=== PATIENT | female | born 1935 | race Caucasian/White ===

== ENCOUNTER 2017-06-20 08:10 | Emergency (ER) | payer MEDICARE, BC ==
[2017-06-20 09:28] VITALS: BP 135/74
--- NOTE | 2017-06-20 09:48 | EDM.PDOC ---
ED HPI GENERAL MEDICAL PROBLEM - General Chief Complaint: Lower Extremity Injury/Pain Stated Complaint: Hip pain Time Seen by Provider: 06/20/17 09:30 Source of Information: Reports: Patient, RN History Limitations: Reports: No Limitations - History of Present Illness INITIAL COMMENTS - FREE TEXT/NARRATIVE: 81 yr female presents with right hip pain. States hx of hip dislocation and thinks it happened again. States no injury, she was bending over to help her and felt this hip give out. 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) Right Hip Pain Score (Numeric/FACES): 8 - Related Data Allergies Allergy/AdvReac Type Severity Reaction Status Date / Time sulfamethoxazole Allergy Unknown Rash Verified 06/20/17 09:33 [From Bactrim] trimethoprim [From Bactrim] Allergy Unknown Rash Verified 06/20/17 09:33 ciprofloxacin Allergy Rash Verified 06/20/17 09:33 cortisone Allergy Itching Verified 06/20/17 09:33 lidocaine Allergy Other Verified 06/20/17 09:33 lisinopril Allergy Cough Verified 06/20/17 09:33 metronidazole [From Flagyl] Allergy Rash Verified 06/20/17 09:33 Metronidazole HCl Allergy Rash Verified 06/20/17 09:33 [From Flagyl] procaine HCl [From Novocain] Allergy Itching Verified 06/20/17 09:33 metals Allergy Itching Uncoded 06/20/17 09:33 Home Meds: Home Meds Losartan [Cozaar] 25 mg PO DAILY 07/02/13 [History] Omeprazole 20 mg PO ASDIRECTED 07/05/13 [History] Psyllium with Sucrose [Metamucil] 1 each PO DAILY 02/01/15 [History] Aspirin [Corey Chewable] 81 mg PO DAILY 06/07/16 [History] Cholecalciferol (Vitamin D3) [Vitamin D3] 2,000 unit PO DAILY 06/07/16 [History] Docusate Sodium [Colace] 100 mg PO QPM 06/07/16 [History] FLUoxetine HCl [Fluoxetine HCl] 10 mg PO DAILY 06/07/16 [History] Carvedilol [Carvedilol] 6.25 mg PO BIDMEALS 06/20/17 [History] Cyanocobalamin (Vitamin B-12) [Vitamin B-12] 1,000 mcg PO DAILY 06/20/17 [ History] Furosemide [Furosemide] 20 mg PO DAILY@1500 06/20/17 [History] Furosemide [Furosemide] 40 mg PO DAILY 06/20/17 [History] Magnesium Hydroxide [Milk of Magnesia] 15 - 30 mg PO DAILY PRN 06/20/17 [History ] Magnesium Oxide [Magnesium] 400 mg PO DAILY 06/20/17 [History] Potassium Chloride [Klor-Con 10] 20 meq PO DAILY 06/20/17 [History] Zinc 50 mg PO DAILY 06/20/17 [History] Past Medical History HEENT History: Reports: Cataract, Impaired Vision Cardiovascular History: Reports: Angina, Heart Failure, Hypertension Respiratory History: Reports: SOB, Other (See Below) Other Respiratory History: SOB when she lies flat Gastrointestinal History: Reports: GERD, Other (See Below) Other Gastrointestinal History: Reflux Genitourinary History: Reports: Other (See Below) Other Genitourinary History: history UTI 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: , 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 (See Below) Other OB/BYN History: 1 girl 2 boys vag, lumpectomy Musculoskeletal History: Reports: Arthritis, Back Pain, Chronic Neurological History: Reports: Migraines Psychiatric History: Reports: Depression Dermatologic History: Reports: Psoriasis, Other (See Below) Other Dermatologic History: on finger - Infectious Disease History Infectious Disease History: Reports: Chicken Pox, Measles, Scarlet Fever, Shingles - Past Surgical History Cardiovascular Surgical History: Reports: Other (See Below) Musculoskeletal Surgical History: Reports: Hip Replacement, Knee Replacement, Shoulder Surgery Social & Family History - Tobacco Use Smoking Status *Q: Never Smoker Second Hand Smoke Exposure: Yes - Caffeine Use Caffeine Use: Reports: Coffee Caffeine Use Comment: 1-2 cups/day - Recreational Drug Use Recreational Drug Use: No - Living Situation & Occupation Living situation: Reports: Occupation: Retired Review of Systems - Review of Systems Review Of Systems: See Below Constitutional: Reports: No Symptoms Eyes: Reports: Glasses Respiratory: Reports: No Symptoms Cardiovascular: Reports: Other (Took water pill today, concerned of increase in urination) GI/Abdominal: Reports: No Symptoms Musculoskeletal: Reports: Leg Pain Skin: Reports: No Symptoms Neurological: Reports: No Symptoms Psychiatric: Reports: No Symptoms ED EXAM, GENERAL - Physical Exam Exam: See Below Exam Limited By: No Limitations General Appearance: Alert, No Apparent Distress Ears: Normal External Exam Nose: Normal Inspection Throat/Mouth: Normal Inspection Head: Atraumatic Neck: Supple Respiratory/Chest: No Respiratory Distress, Lungs Clear, Normal Breath Sounds Cardiovascular: Normal Peripheral Pulses, No Edema GI/Abdominal: Normal Bowel Sounds, Soft, Non-Tender Extremities: Normal Inspection, Normal Capillary Refill, Limited Range of Motion Neurological: Alert, Oriented Psychiatric: Normal Affect, Normal Mood Skin Exam: Warm, Dry, Normal Color Course - Vital Signs Last Recorded V/S: Last Vital Signs Temp 97.8 F 06/20/17 09:25 Pulse 70 06/20/17 09:25 Resp 18 06/20/17 09:25 BP 135/74 06/20/17 09:25 Pulse Ox 100 06/20/17 09:25 - Orders/Labs/Meds Orders: Active Orders 24 hr Category Date Time Status Schneider Catheter Insertion [Insert Urinary Catheter] [OM. Care 06/20/17 11:00 Ordered PC] Q24H Urinary Catheter Assessment [RC] ASDIRECTED Care 06/20/17 10:54 Active Meds: Medications Discontinued Medications Generic Name Dose Route Start Last Admin Trade Name Freq PRN Reason Stop Dose Admin Morphine Sulfate 2 mg 06/20/17 09:49 06/20/17 09:52 Morphine SUBCUT 2 mg Q2H PRN Administration Pain (severe 7-10) Morphine Sulfate 4 mg 06/20/17 11:43 06/20/17 11:46 Morphine SUBCUT 06/20/17 11:44 4 mg ONETIME ONE Administration Morphine Sulfate Confirm 06/20/17 11:45 06/20/17 11:58 Morphine Administered 06/20/17 11:46 Not Given Dose 10 mg .ROUTE .[facility] - Radiology Interpretation Free Text/Narrative:: right hip dislocation - Re-Assessments/Exams Free Text/Narrative Re-Assessment/Exam: 06/20/17 10:55 Reviewed x-ray and hip dislocation noted. Consult with [facility]. States to attempt to get hip back in place. Consult with Dr Orozco, Dr Orozco reviewed x-ray and reviewed situation with pt. Pt requests for transfer to [facility]. Talked to Dr Dangelo in ER and states to send her to [facility]. Departure - Departure Time of Disposition: 12:30 Disposition: DC/Tfer to Acute Hospital 02 Condition: Good Clinical Impression: Dislocation of right hip - Discharge Information Referrals: Tavares Orozco MD [Primary Care Provider] - Forms: ED Department Discharge - My Orders Last 24 Hours: My Active Orders 06/20/17 10:54 Urinary Catheter Assessment [RC] ASDIRECTED 06/20/17 11:00 Schneider Catheter Insertion [Insert Urinary Catheter] [OM.PC] Q24H - Assessment/Plan Last 24 Hours: My Active Orders 06/20/17 10:54 Urinary Catheter Assessment [RC] ASDIRECTED 06/20/17 11:00 Schneider Catheter Insertion [Insert Urinary Catheter] [OM.PC] Q24H
[2017-06-20] MEDS ORDERED: Morphine 2 MG/ML Syringe SUBCUT PRN (09:49)
--- NOTE | 2017-06-20 11:25 | CR ---
DATE OF SERVICE: 06/20/17 CLINICAL DATA: hip pain PELVIS AND RIGHT HIP: Comparison is made to a prior exam dated 12/13/16. The patient is status post bilateral total hip arthroplasty. There is dislocation of the right hip prosthesis with superior dislocation of the femoral component with respect to the acetabular component. No other acute abnormalities. [id number] [facility]
[2017-06-20] MEDS ORDERED: Morphine 10 MG/ML Syringe SUBCUT ONE (11:43)
[2017-06-20] MEDS ORDERED: Morphine 10 MG/ML Syringe ONE (11:45)
== END 2017-06-20 12:30 ==
LOC: LB.ED 08:10
DX: T84.020A Dislocation of internal right hip prosthesis, initial encounter (principal); Z87.39 Personal history of other diseases of the musculoskeletal system and connective tissue; I11.0 Hypertensive heart disease with heart failure; I50.9 Heart failure, unspecified; Z96.649 Presence of unspecified artificial hip joint; Z88.2 Allergy status to sulfonamides; Z88.1 Allergy status to other antibiotic agents; Z88.8 Allergy status to other drugs, medicaments and biological substances
CPT/HCPCS: 51702; 73502; 96372; 99285; A0425; A0429; J2270; 99284

== ENCOUNTER 2019-01-05 08:02 | Emergency (ER) | payer MEDICARE ==
[2019-01-05] MEDS ORDERED: Metoprolol Tartrate 5 MG/5 ML SDV IVPUSH ONE (08:23)
[2019-01-05] MEDS ORDERED: Metoprolol Tartrate 5 MG/5 ML SDV ONE (08:29)
[2019-01-05] MEDS ORDERED: Heparin Sodium 5,000 UNITS/0.5 ML Syringe IVPUSH STA (09:16)
[2019-01-05] MEDS ORDERED: Diltiazem 25 MG/5 ML SDV IVPUSH ONE (09:26)
[2019-01-05] MEDS ORDERED: Clopidogrel 75 MG Tab PO ONE (09:26)
[2019-01-05] MEDS ORDERED: Heparin Sodium/D5W 25,000 UNITS/500 ML BAG IV SCH (09:30)
[2019-01-05] MEDS ORDERED: Diltiazem 100 MG in Sodium Chloride 0.9% 100 ML IV SCH (09:30)
--- NOTE | 2019-01-05 10:05 | EDM.PDOC ---
ED HPI GENERAL MEDICAL PROBLEM - General Chief Complaint: General Stated Complaint: SOB Time Seen by Provider: 01/05/19 08:10 Source of Information: Reports: Patient History Limitations: Reports: No Limitations - History of Present Illness INITIAL COMMENTS - FREE TEXT/NARRATIVE: Pt is 83 year old female with PMH of hypertension and GERD present to emergency room with Palpitations and shortness of breath.According to patient she claims that she was fine last night when she went to bed, she woke up at 5 Am today with racing heart and shortness of breath at rest. Pt claims that she can feel the heart racing on and off and feels tired and short of breath. No chest pain or chest tightness. No nausea or vomiting. No fever or chills. The symptoms have not resolved and hence she came into emergency room. Pt does not have CAD, but apparently had Cardiac evaluation for Hip surgery 2 years ago in [facility] and was started on Lasix and Coreg, per patient. Onset: Today Onset Date: 01/05/19 Onset Time: 05:00 Location: Reports: Chest Quality: Reports: Other (palpitations) Severity: Moderate Improves with: Reports: None Worsens with: Reports: None Associated Symptoms: Reports: Shortness of Breath. Denies: Confusion, Chest Pain, Cough, Diaphoresis, Fever/Chills, Headaches, Loss of Appetite, Malaise, Nausea/Vomiting, Rash, Seizure, Syncope, Weakness - Related Data Allergies Allergy/AdvReac Type Severity Reaction Status Date / Time sulfamethoxazole Allergy Unknown Rash Verified 08/25/17 10:27 [From Bactrim] trimethoprim [From Bactrim] Allergy Unknown Rash Verified 08/25/17 10:27 acetaminophen [From [place]] Allergy Rash Verified 01/05/19 09:07 ciprofloxacin Allergy Rash Verified 08/25/17 10:27 cortisone Allergy Itching Verified 08/25/17 10:27 hydrocodone [From [place]] Allergy Rash Verified 01/05/19 09:07 lidocaine Allergy Other Verified 08/25/17 10:27 lisinopril Allergy Cough Verified 08/25/17 10:27 metronidazole [From Flagyl] Allergy Rash Verified 08/25/17 10:27 Metronidazole HCl Allergy Rash Verified 08/25/17 10:27 [From Flagyl] procaine HCl [From Novocain] Allergy Itching Verified 08/25/17 10:27 metals Allergy Itching Uncoded 08/25/17 10:27 Home Meds: Home Meds Losartan [Cozaar] 25 mg PO DAILY 07/02/13 [History] Omeprazole 20 mg PO ASDIRECTED 07/05/13 [History] Psyllium with Sucrose [Metamucil] 1 each PO DAILY 02/01/15 [History] Aspirin [Corey Chewable] 81 mg PO DAILY 06/07/16 [History] Cholecalciferol (Vitamin D3) [Vitamin D3] 2,000 unit PO DAILY 06/07/16 [History] Docusate Sodium [Colace] 100 mg PO QPM 06/07/16 [History] Carvedilol 6.25 mg PO BIDMEALS 06/20/17 [History] Cyanocobalamin (Vitamin B-12) [Vitamin B-12] 1,000 mcg PO DAILY 06/20/17 [ History] Furosemide 20 mg PO DAILY@1500 06/20/17 [History] Furosemide 40 mg PO DAILY 06/20/17 [History] Magnesium Hydroxide [Milk of Magnesia] 15 - 30 mg PO DAILY PRN 06/20/17 [History ] Magnesium Oxide [Magnesium] 400 mg PO DAILY 06/20/17 [History] Zinc 50 mg PO DAILY 06/20/17 [History] Past Medical History HEENT History: Reports: Cataract, Impaired Vision Cardiovascular History: Reports: Angina, Heart Failure, Hypertension Respiratory History: Reports: SOB, Other (See Below) Other Respiratory History: SOB when she lies flat Gastrointestinal History: Reports: GERD, Other (See Below) Other Gastrointestinal History: Reflux Genitourinary History: Reports: Other (See Below) Other Genitourinary History: history UTI 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: , 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, 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 Musculoskeletal History: Reports: Arthritis, Back Pain, Chronic Neurological History: Reports: Migraines Psychiatric History: Reports: Depression Endocrine/Metabolic History: Reports: Vitamin D Deficiency Hematologic History: Reports: Blood Transfusion(s) Dermatologic History: Reports: Psoriasis, Other (See Below) Other Dermatologic History: on finger - Infectious Disease History Infectious Disease History: Reports: Chicken Pox, Measles, Scarlet Fever, Shingles - Past Surgical History Cardiovascular Surgical History: Reports: Other (See Below) Musculoskeletal Surgical History: Reports: Hip Replacement, Knee Replacement, Shoulder Surgery Social & Family History - Caffeine Use Caffeine Use: Reports: Coffee Caffeine Use Comment: 1-2 cups/day - Living Situation & Occupation Living situation: Reports: Occupation: Retired ED ROS GENERAL - Review of Systems Review Of Systems: See Below Constitutional: Denies: Fever, Chills, Malaise, Weakness HEENT: Denies: Rhinitis, Throat Pain, Throat Swelling Respiratory: Reports: Shortness of Breath. Denies: Pleuritic Chest Pain, Cough , Sputum Cardiovascular: Reports: Dyspnea on Exertion, Palpitations. Denies: Chest Pain , Lightheadedness GI/Abdominal: Denies: Abdominal Pain, Nausea, Vomiting : Denies: Dysuria, Frequency Musculoskeletal: Denies: Joint Pain, Joint Swelling Skin: Denies: Bruising, Pruritis, Rash Neurological: Denies: Confusion, Dizziness, Headache, Numbness, Tingling, Weakness ED EXAM, GENERAL - Physical Exam Exam: See Below Exam Limited By: No Limitations General Appearance: Alert, WD/WN, No Apparent Distress Eye Exam: Bilateral Eye: EOMI, PERRL Ears: Normal External Exam Ear Exam: Bilateral Ear: Auricle Normal, Canal Normal, TM normal Nose: Normal Inspection, Normal Mucosa, No Blood Throat/Mouth: Normal Inspection, Normal Lips, Normal Teeth, Normal Gums, Normal Oropharynx, Normal Voice, No Airway Compromise Head: Atraumatic, Normocephalic Neck: Normal Inspection, Supple, Non-Tender, Full Range of Motion Respiratory/Chest: Lungs Clear, Normal Breath Sounds, No Accessory Muscle Use, Chest Non-Tender Cardiovascular: No Edema, No Murmur, Irregularly Irregular, Other (heart rate is in 140s) Peripheral Pulses: 2+: Carotid (L), Carotid (R), Radial (L), Radial (R) GI/Abdominal: Normal Bowel Sounds, Soft, Non-Tender, No Organomegaly, No Distention, No Abnormal Bruit, No Mass Extremities: Normal Inspection, Normal Range of Motion, Non-Tender, Normal Capillary Refill, Pedal Edema (1+ pitting) EKG INTERPRETATION EKG Date: 01/05/19 Rhythm: A-Fib Rate (Beats/Min): 140 [place]: Normal P-Wave: Present QRS: Normal ST-T: Depressed (in lead 2,3 and AVF) QT: Normal Course - Vital Signs Text/Narrative:: 83 year patient present with sudden onset of shortness of breath with palpitations since 5 AM today. EKG shows Afib with inferior lead showing ischemic changes. Vital stable. Pt did receive Lopressor 5mg IV times one, labs were ordered. Patient's heart rate did transiently come down into 90s and relapsed into RVR at 130-140. Pt has not had any chest pain of discomfort in the emergency room. Her CBC is normal. CMP appear normal other then creat of 1.29 with BUN of 27. Troponin is 0.47 and D-dimer of 484. Pt has had Non-stemi with Afib in RVR. I did contact Dr. Epperson, procedural nurse application assistant at [facility]. Recommendation was to start on Non-stemi treatment and also rate control with cardizem drip and transfer patient to [facility]. I have discussed the plan with patient, she agrees with it. Pt did receive plavix 300mg PO, heparin bolus of 400mg followed by 1000units per hr. Also she received Diltiazem 15mg IV bolus followed by Diltiazem drip at 5mg /hr. Pt will be transferred by ALS ambulance to [facility]. Pt is hemodynamically stable at the time of transfer. Last Recorded V/S: Last Vital Signs Temp Pulse 139 H 01/05/19 08:25 Resp BP 119/61 01/05/19 08:25 Pulse Ox - Orders/Labs/Meds Orders: Active Orders 24 hr Category Date Time Status EKG Documentation Completion [RC] ASDIRECTED Care 01/05/19 08:18 Active Chest 1V Frontal [CR] Stat Exams 01/05/19 08:22 Taken Diltiazem [Cardizem] 100 mg Med 01/05/19 09:30 Active Sodium Chloride 0.9% [Normal Saline] 100 ml IV TITRATE Heparin Sodium/D5W [Heparin 25,000 Units in D5W 500 ML] Med 01/05/19 09:30 Ordered 25,000 units in 500 ml IV TITRATE Medication Orders Heparin Sodium/Dextrose (Heparin 25,000 Units In D5w 500 Ml) 25,000 units in 500 mls @ 0 mls/hr IV TITRATE FABIANO; Protocol Diltiazem HCl 100 mg/ Sodium (Chloride) 100 mls @ 5 mls/hr IV TITRATE FABIANO; Protocol Last Admin: 01/05/19 09:26 Dose: 5 mg/hr, 5 mls/hr Labs: Laboratory Tests 01/05/19 01/05/19 01/05/19 Range/Units 08:15 08:15 08:15 WBC 5.3 (4.0-11.0) K/uL RBC 4.68 (3.80-5.80) M/uL Hgb 14.8 (11.5-16.5) g/dL Hct 45.1 (37.0-47.0) % MCV 96 (76-96) fL MCH 31.6 (27.0-32.0) pg MCHC 32.8 (31.0-35.0) g/dL RDW 12.4 (11.0-16.0) % Plt Count 147 L (150-500) K/uL MPV 11.0 H (6.0-10.0) fL Neut % (Auto) 67.1 (45.0-70.0) % Lymph % (Auto) 22.5 (20.0-40.0) % Treasure % (Auto) 7.9 (3.0-10.0) % Eos % (Auto) 2.3 (1.0-5.0) % Baso % (Auto) 0.2 (0.0-0.5) % Neut # (Auto) 3.56 (2.00-7.50) K/uL Lymph # (Auto) 1.19 L (1.50-4.00) K/uL Treasure # (Auto) 0.42 (0.20-0.80) K/uL Eos # (Auto) 0.12 (0.04-0.40) K/uL Baso # (Auto) 0.01 L (0.02-0.10) K/uL PT 10.1 (9.0-11.5) sec INR 1.0 (1.0-3.5) APTT 24.8 (24.4-33.2) SECONDS D-Dimer, Quantitative (0-400) ng/mL Sodium 142 (136-145) mmol/L Potassium 4.3 (3.5-5.1) mmol/L Chloride 105 (98-107) mmol/L Carbon Dioxide 28.6 (21.0-32.0) mmol/L Anion Gap 12.7 (5.0-15.0) mmol/L BUN 27 H (8-26) mg/dL Creatinine 1.29 H (0.55-1.02) mg/dL Est Cr Clr Drug Dosing TNP Estimated GFR (MDRD) 40 L (>60) MLS/MIN BUN/Creatinine Ratio 20.9 (6-25) Glucose 108 H (74-100) mg/dL Calcium 8.6 (8.5-10.1) mg/dL Total Bilirubin 1.3 H (0.0-1.0) mg/dL AST 25 (15-37) U/L ALT 23 (12-78) U/L Alkaline Phosphatase 77 (46-116) U/L Troponin I (0.000-0.060) ng/mL Total Protein 6.9 (6.4-8.2) g/dL Albumin 3.5 (3.4-5.0) g/dL Globulin 3.4 (2.2-4.2) g/dL Albumin/Globulin Ratio 1.0 (0.8-2.0) 01/05/19 01/05/19 Range/Units 08:15 08:15 WBC (4.0-11.0) K/uL RBC (3.80-5.80) M/uL Hgb (11.5-16.5) g/dL Hct (37.0-47.0) % MCV (76-96) fL MCH (27.0-32.0) pg MCHC (31.0-35.0) g/dL RDW (11.0-16.0) % Plt Count (150-500) K/uL MPV (6.0-10.0) fL Neut % (Auto) (45.0-70.0) % Lymph % (Auto) (20.0-40.0) % Treasure % (Auto) (3.0-10.0) % Eos % (Auto) (1.0-5.0) % Baso % (Auto) (0.0-0.5) % Neut # (Auto) (2.00-7.50) K/uL Lymph # (Auto) (1.50-4.00) K/uL Treasure # (Auto) (0.20-0.80) K/uL Eos # (Auto) (0.04-0.40) K/uL Baso # (Auto) (0.02-0.10) K/uL PT (9.0-11.5) sec INR (1.0-3.5) APTT (24.4-33.2) SECONDS D-Dimer, Quantitative 454 H (0-400) ng/mL Sodium (136-145) mmol/L Potassium (3.5-5.1) mmol/L Chloride (98-107) mmol/L Carbon Dioxide (21.0-32.0) mmol/L Anion Gap (5.0-15.0) mmol/L BUN (8-26) mg/dL Creatinine (0.55-1.02) mg/dL Est Cr Clr Drug Dosing Estimated GFR (MDRD) (>60) MLS/MIN BUN/Creatinine Ratio (6-25) Glucose (74-100) mg/dL Calcium (8.5-10.1) mg/dL Total Bilirubin (0.0-1.0) mg/dL AST (15-37) U/L ALT (12-78) U/L Alkaline Phosphatase (46-116) U/L Troponin I 0.471 H* (0.000-0.060) ng/mL Total Protein (6.4-8.2) g/dL Albumin (3.4-5.0) g/dL Globulin (2.2-4.2) g/dL Albumin/Globulin Ratio (0.8-2.0) Meds: Medications Generic Name Dose Route Start Last Admin Trade Name Freq PRN Reason Stop Dose Admin Heparin Sodium/Dextrose 25,000 units in 500 mls @ 0 mls/hr 01/05/19 09:30 Heparin 25,000 Units In D5w 500 Ml IV TITRATE FABIANO Protocol 12 UNITS/KG/HR Diltiazem HCl 100 mg/ Sodium 100 mls @ 5 mls/hr 01/05/19 09:30 01/05/19 09:26 Chloride IV 5 mg/hr TITRATE FABIANO 5 mls/hr Administration Protocol 5 MG/HR Discontinued Medications Generic Name Dose Route Start Last Admin Trade Name Freq PRN Reason Stop Dose Admin Clopidogrel Bisulfate 300 mg 01/05/19 09:26 01/05/19 09:15 Plavix PO 01/05/19 09:27 300 mg ONETIME ONE Administration Diltiazem HCl 15 mg 01/05/19 09:26 01/05/19 09:22 Diltiazem IVPUSH 01/05/19 09:27 15 mg ONETIME ONE Administration Heparin Sodium (Porcine) 4,000 units 01/05/19 09:16 01/05/19 09:35 Heparin Sodium IVPUSH 01/05/19 09:17 4,000 units .BOLUS STA Administration Metoprolol Tartrate Confirm 01/05/19 08:29 01/05/19 08:42 Lopressor Administered 01/05/19 08:30 Not Given Dose 5 mg .ROUTE .[facility]-MED ONE Metoprolol Tartrate 5 mg 01/05/19 08:23 01/05/19 08:25 Lopressor IVPUSH 01/05/19 08:24 5 mg ONETIME ONE Administration Departure - Departure Time of Disposition: 11:30 Disposition: DC/Tfer to Acute Hospital 02 Condition: Fair Clinical Impression: Non-STEMI (non-ST elevated myocardial infarction), Atrial fibrillation with RVR - Discharge Information *PRESCRIPTION DRUG MONITORING PROGRAM REVIEWED*: Not Applicable *COPY OF PRESCRIPTION DRUG MONITORING REPORT IN PATIENT KARELY: Not Applicable Referrals: PCP,None [Primary Care Provider] - - Problem List & Annotations (1) Atrial fibrillation with RVR SNOMED Code(s): 354337669999280 Code(s): I48.91 - UNSPECIFIED ATRIAL FIBRILLATION Status: Acute Current Visit: Yes (2) Non-STEMI (non-ST elevated myocardial infarction) SNOMED Code(s): 34986935 Code(s): I21.4 - NON-ST ELEVATION (NSTEMI) MYOCARDIAL INFARCTION Status: Acute Current Visit: Yes - Problem List Review Problem List Initiated/Reviewed/Updated: Yes - My Orders Last 24 Hours: My Active Orders 01/05/19 08:18 EKG Documentation Completion [RC] ASDIRECTED 01/05/19 08:22 Chest 1V Frontal [CR] Stat 01/05/19 09:30 Diltiazem [Cardizem] 100 mg Sodium Chloride 0.9% [Normal Saline] 100 ml IV TITRATE Heparin Sodium/D5W [Heparin 25,000 Units in D5W 500 ML] 25,000 units in 500 ml IV TITRATE - Assessment/Plan Last 24 Hours: My Active Orders 01/05/19 08:18 EKG Documentation Completion [RC] ASDIRECTED 01/05/19 08:22 Chest 1V Frontal [CR] Stat 01/05/19 09:30 Diltiazem [Cardizem] 100 mg Sodium Chloride 0.9% [Normal Saline] 100 ml IV TITRATE Heparin Sodium/D5W [Heparin 25,000 Units in D5W 500 ML] 25,000 units in 500 ml IV TITRATE Assessment:: Non-STEMI Afib with RVR Plan: I have discussed the plan with patient, she agrees with it. Pt did receive plavix 300mg PO, heparin bolus of 400mg followed by 1000units per hr. Also she received Diltiazem 15mg IV bolus followed by Diltiazem drip at 5mg /hr. Pt will be transferred by ALS ambulance to [facility]. Pt is hemodynamically stable at the time of transfer.
[2019-01-05 10:27] VITALS: BP 105/54
[2019-01-05] MEDS ORDERED: Clopidogrel 75 MG Tab ONE (12:13)
--- NOTE | 2019-01-05 13:51 | CR ---
DATE OF SERVICE: 01/05/19 CLINICAL DATA: palpitation with shortness of breath AP PORTABLE CHEST: Comparison is made to a prior PA and lateral chest dated 12/17/18. The heart is enlarged. The aorta is ectatic. The lungs are clear. No pneumothorax. No pleural effusions. No other significant findings. [id number] MTDD
== END 2019-01-05 12:04 ==
LOC: LB.ED 08:02
DX: I21.4 Non-ST elevation (NSTEMI) myocardial infarction (principal); I48.91 Unspecified atrial fibrillation; F32.9 Major depressive disorder, single episode, unspecified; K21.9 Gastro-esophageal reflux disease without esophagitis; Z79.899 Other long term (current) drug therapy; Z88.8 Allergy status to other drugs, medicaments and biological substances; Z88.2 Allergy status to sulfonamides
CPT/HCPCS: 36415; 51702; 71045; 80053; 84484; 85025; 85379; 85610; 85730; 93005; 96365; 96366; 96368; 96375; 96376; 99285-25; A0425; A0429; A9270-GY; J1644; J1644-GY; J3490; J7030

== ENCOUNTER 2019-05-24 09:46 | Emergency (ER) | payer MEDICARE ==
[2019-05-24] MEDS ORDERED: Sodium Chloride 0.9% 10 ML Syringe FLUSH PRN (10:07)
--- NOTE | 2019-05-24 10:16 | EDM.PDOC ---
ED HPI GENERAL MEDICAL PROBLEM - General Chief Complaint: Chest Pain Stated Complaint: CHEST PAIN Time Seen by Provider: 05/24/19 10:00 Source of Information: Reports: Patient, Family, RN History Limitations: Reports: No Limitations - History of Present Illness INITIAL COMMENTS - FREE TEXT/NARRATIVE: 83 yr female presents with chest pain/warm sensation to chest this am. She had some chest pain with radiates to neck and across shoulders about 4 days ago. States some burning across front of chest. States no pain to chest at this time. She does have a hx of Htn, no diabetes, no HLD. She does wish to have full treatment. Bilateral Middle Chest Pain Score (Numeric/FACES): 0 - Related Data Allergies Allergy/AdvReac Type Severity Reaction Status Date / Time sulfamethoxazole Allergy Unknown Rash Verified 05/24/19 11:23 [From Bactrim] trimethoprim [From Bactrim] Allergy Unknown Rash Verified 05/24/19 11:23 amoxicillin Allergy Facial Verified 05/24/19 11:30 Swelling ciprofloxacin Allergy Rash Verified 05/24/19 11:23 cortisone Allergy Itching Verified 05/24/19 11:23 hydrocodone [From [place]] Allergy Rash Verified 05/24/19 11:23 lisinopril Allergy Cough Verified 05/24/19 11:23 metronidazole [From Flagyl] Allergy Rash Verified 05/24/19 11:23 Metronidazole HCl Allergy Rash Verified 05/24/19 11:23 [From Flagyl] procaine HCl [From Novocain] Allergy Itching Verified 05/24/19 11:23 metals Allergy Itching Uncoded 05/24/19 11:23 Home Meds: Home Meds Losartan [Cozaar] 25 mg PO DAILY 07/02/13 [History] Omeprazole 20 mg PO ASDIRECTED 07/05/13 [History] Psyllium with Sucrose [Metamucil] 1 each PO DAILY PRN 02/01/15 [History] Aspirin [Corey Chewable] 81 mg PO DAILY 06/07/16 [History] Cholecalciferol (Vitamin D3) [Vitamin D3] 2,000 unit PO DAILY 06/07/16 [History] Docusate Sodium [Colace] 100 mg PO QPM PRN 06/07/16 [History] Carvedilol 6.25 mg PO BIDMEALS 06/20/17 [History] Furosemide 20 mg PO DAILY@1500 06/20/17 [History] Furosemide 40 mg PO DAILY 06/20/17 [History] Magnesium Hydroxide [Milk of Magnesia] 15 - 30 mg PO DAILY PRN 06/20/17 [History ] Magnesium Oxide [Magnesium] 400 mg PO DAILY 06/20/17 [History] Apixaban [Eliquis] 10 mg PO DAILY 05/24/19 [History] Past Medical History HEENT History: Reports: Cataract, Impaired Vision Cardiovascular History: Reports: Angina, Heart Failure, Hypertension Respiratory History: Reports: SOB, Other (See Below) Other Respiratory History: SOB when she lies flat Gastrointestinal History: Reports: GERD, Other (See Below) Other Gastrointestinal History: Reflux Genitourinary History: Reports: Other (See Below) Other Genitourinary History: history UTI 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: , 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 (See Below) 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 RESEARCH TECHNICIAN History: 1 girl 2 boys vag, lumpectomy Musculoskeletal History: Reports: Arthritis, Back Pain, Chronic Neurological History: Reports: Migraines Psychiatric History: Reports: Depression Endocrine/Metabolic History: Reports: Vitamin D Deficiency Hematologic History: Reports: Blood Transfusion(s) Dermatologic History: Reports: Psoriasis, Other (See Below) Other Dermatologic History: on finger - Infectious Disease History Infectious Disease History: Reports: Chicken Pox, Measles, Scarlet Fever, Shingles - Past Surgical History Cardiovascular Surgical History: Reports: Other (See Below) Musculoskeletal Surgical History: Reports: Hip Replacement, Knee Replacement, Shoulder Surgery Social & Family History - Caffeine Use Caffeine Use: Reports: Coffee Caffeine Use Comment: 1-2 cups/day - Living Situation & Occupation Living situation: Reports: Occupation: Retired ED ROS GENERAL - Review of Systems Review Of Systems: See Below Constitutional: Reports: No Symptoms HEENT: Reports: Glasses Respiratory: Reports: Shortness of Breath. Denies: Cough Cardiovascular: Reports: Chest Pain, Edema GI/Abdominal: Reports: No Symptoms Musculoskeletal: Reports: Other (chronic left lower extremity pain) Skin: Reports: No Symptoms Neurological: Reports: No Symptoms Psychiatric: Reports: No Symptoms Hematologic/Lymphatic: Reports: No Symptoms Immunologic: Reports: No Symptoms ED EXAM, GENERAL - Physical Exam Exam: See Below Exam Limited By: No Limitations General Appearance: Alert, No Apparent Distress Eye Exam: Bilateral Eye: PERRL Ears: Normal Canal, Hearing Grossly Normal Nose: Normal Inspection, Normal Mucosa Throat/Mouth: Normal Inspection, Normal Lips, Normal Oropharynx, Normal Voice, No Airway Compromise Head: Atraumatic, Normocephalic Neck: Normal Inspection, Supple, Non-Tender Respiratory/Chest: No Respiratory Distress, Lungs Clear, Normal Breath Sounds Cardiovascular: Normal Peripheral Pulses, Regular Rate, Rhythm, No Edema Peripheral Pulses: 2+: Radial (L), Radial (R) GI/Abdominal: Normal Bowel Sounds, Soft, Non-Tender Back Exam: No: Vertebral Tenderness Extremities: Pedal Edema. No: Arm Pain, Increased Warmth Neurological: Alert, Oriented, Normal Cognition Psychiatric: Normal Affect, Normal Mood Skin Exam: Warm, Dry, Normal Color Lymphatic: No Adenopathy Course - Vital Signs Last Recorded V/S: Last Vital Signs Temp 97.8 F 05/24/19 09:54 Pulse 57 L 05/24/19 13:08 Resp 18 05/24/19 09:54 BP 126/63 05/24/19 13:08 Pulse Ox 97 05/24/19 13:08 - Orders/Labs/Meds Orders: Active Orders 24 hr Category Date Time Status Cardiac Monitoring [RC] .As Directed Care 05/24/19 10:08 Active EKG Documentation Completion [RC] ASDIRECTED Care 05/24/19 10:09 Active Heparin Sodium/D5W [Heparin 25,000 Units in D5W 500 ML] Med 05/24/19 11:30 Active 25,000 units in 500 ml IV TITRATE Saline Lock Insert [OM.PC] Stat Oth 05/24/19 10:07 Ordered Medication Orders Heparin Sodium/Dextrose (Heparin 25,000 Units In D5w 500 Ml) 25,000 units in 500 mls @ 42.48 mls/hr IV TITRATE [facility], [facility]; Protocol Last Admin: 05/24/19 11:48 Dose: 12 units/kg/hr, 42.48 mls/hr Sodium Chloride (Saline Flush) 10 ml FLUSH ASDIRECTED PRN PRN Reason: Keep Vein Open Labs: Laboratory Tests 05/24/19 05/24/19 05/24/19 Range/Units 10:20 10:20 10:27 WBC 5.3 (4.0-11.0) K/uL RBC 3.81 (3.80-5.80) M/uL Hgb 12.6 (11.5-16.5) g/dL Hct 38.1 (37.0-47.0) % MCV 100 H (76-96) fL MCH 33.1 H (27.0-32.0) pg MCHC 33.1 (31.0-35.0) g/dL RDW 12.8 (11.0-16.0) % Plt Count 130 L (150-500) K/uL MPV 11.0 H (6.0-10.0) fL Neut % (Auto) 65.3 (45.0-70.0) % Lymph % (Auto) 22.4 (20.0-40.0) % [place] % (Auto) 10.2 H (3.0-10.0) % Eos % (Auto) 1.9 (1.0-5.0) % Baso % (Auto) 0.2 (0.0-0.5) % Neut # (Auto) 3.47 (2.00-7.50) K/uL Lymph # (Auto) 1.19 L (1.50-4.00) K/uL [place] # (Auto) 0.54 (0.20-0.80) K/uL Eos # (Auto) 0.10 (0.04-0.40) K/uL Baso # (Auto) 0.01 L (0.02-0.10) K/uL APTT 26.2 (24.4-33.2) SECONDS Sodium (136-145) mmol/L Potassium (3.5-5.1) mmol/L Chloride (98-107) mmol/L Carbon Dioxide (21.0-32.0) mmol/L Anion Gap (5.0-15.0) mmol/L BUN (8-26) mg/dL Creatinine (0.55-1.02) mg/dL Est Cr Clr Drug Dosing mL/min Estimated GFR (MDRD) (>60) MLS/MIN BUN/Creatinine Ratio (6-25) Glucose (74-100) mg/dL Calcium (8.5-10.1) mg/dL Total Bilirubin (0.0-1.0) mg/dL AST (15-37) U/L ALT (12-78) U/L Alkaline Phosphatase (46-116) U/L Troponin I (0.000-0.060) ng/mL B-Natriuretic Peptide 2996 H (0-450) pg/mL Total Protein (6.4-8.2) g/dL Albumin (3.4-5.0) g/dL Globulin (2.2-4.2) g/dL Albumin/Globulin Ratio (0.8-2.0) Urine Color Urine Appearance (CLEAR) Urine pH (5.0-8.0) Ur Specific [place] (1.003-1.030) Urine Protein (NEGATIVE) mg/dL Urine Glucose (UA) (NEGATIVE) mg/dL Urine Ketones (NEGATIVE) mg/dL Urine Occult Blood (NEGATIVE) Urine Nitrite (NEGATIVE) Urine Bilirubin (NEGATIVE) Urine Urobilinogen (0.2-1.0) E.U./dL Ur Leukocyte Esterase (NEGATIVE) Urine RBC /HPF Urine WBC /HPF Ur Squamous Epith Cells /HPF Urine Bacteria /HPF Hyaline Casts /HPF 05/24/19 05/24/19 Range/Units 10:27 11:01 WBC (4.0-11.0) K/uL RBC (3.80-5.80) M/uL Hgb (11.5-16.5) g/dL Hct (37.0-47.0) % MCV (76-96) fL MCH (27.0-32.0) pg MCHC (31.0-35.0) g/dL RDW (11.0-16.0) % Plt Count (150-500) K/uL MPV (6.0-10.0) fL Neut % (Auto) (45.0-70.0) % Lymph % (Auto) (20.0-40.0) % [place] % (Auto) (3.0-10.0) % Eos % (Auto) (1.0-5.0) % Baso % (Auto) (0.0-0.5) % Neut # (Auto) (2.00-7.50) K/uL Lymph # (Auto) (1.50-4.00) K/uL [place] # (Auto) (0.20-0.80) K/uL Eos # (Auto) (0.04-0.40) K/uL Baso # (Auto) (0.02-0.10) K/uL APTT (24.4-33.2) SECONDS Sodium 145 (136-145) mmol/L Potassium 4.7 (3.5-5.1) mmol/L Chloride 107 (98-107) mmol/L Carbon Dioxide 33.3 H (21.0-32.0) mmol/L Anion Gap 9.4 (5.0-15.0) mmol/L BUN 28 H (8-26) mg/dL Creatinine 1.53 H (0.55-1.02) mg/dL Est Cr Clr Drug Dosing 29.09 mL/min Estimated GFR (MDRD) 33 L (>60) MLS/MIN BUN/Creatinine Ratio 18.3 (6-25) Glucose 87 (74-100) mg/dL Calcium 9.0 (8.5-10.1) mg/dL Total Bilirubin 1.5 H (0.0-1.0) mg/dL AST 23 (15-37) U/L ALT 27 (12-78) U/L Alkaline Phosphatase 72 (46-116) U/L Troponin I 0.751 H* D (0.000-0.060) ng/mL B-Natriuretic Peptide (0-450) pg/mL Total Protein 6.5 (6.4-8.2) g/dL Albumin 3.5 (3.4-5.0) g/dL Globulin 3.0 (2.2-4.2) g/dL Albumin/Globulin Ratio 1.2 (0.8-2.0) Urine Color Yellow Urine Appearance Clear (CLEAR) Urine pH 7.0 (5.0-8.0) Ur Specific [place] 1.020 (1.003-1.030) Urine Protein Negative (NEGATIVE) mg/dL Urine Glucose (UA) Negative (NEGATIVE) mg/dL Urine Ketones Negative (NEGATIVE) mg/dL Urine Occult Blood Small H (NEGATIVE) Urine Nitrite Negative (NEGATIVE) Urine Bilirubin Negative (NEGATIVE) Urine Urobilinogen 0.2 (0.2-1.0) E.U./dL Ur Leukocyte Esterase Trace H (NEGATIVE) Urine RBC 20-30 H /HPF Urine WBC 0-5 H /HPF Ur Squamous Epith Cells Few /HPF Urine Bacteria Few /HPF Hyaline Casts Few /HPF Meds: Medications Generic Name Dose Route Start Last Admin Trade Name Freq PRN Reason Stop Dose Admin Heparin Sodium/Dextrose 25,000 units in 500 mls @ 42.48 mls/hr 05/24/19 11:30 05/24/19 11:48 Heparin 25,000 Units In D5w 500 Ml IV 12 units/kg/hr TITRATE FABIANO 42.48 mls/hr Administration Protocol 12 UNITS/KG/HR Sodium Chloride 10 ml 05/24/19 10:07 Saline Flush FLUSH ASDIRECTED PRN Keep Vein Open Discontinued Medications Generic Name Dose Route Start Last Admin Trade Name Kristen PRN Reason Stop Dose Admin Aspirin 324 mg 05/24/19 11:08 05/24/19 11:07 Aspirin PO 05/24/19 11:09 324 mg ONETIME ONE Administration - Re-Assessments/Exams Free Text/Narrative Re-Assessment/Exam: 05/24/19 11:54 EKG with NSR and ST abnormality inferior lateral ischemia. ASA 324 mg PO given. Consult with Dr Han, cardiology and recommend to transfer to [place]. VSS and no more chest pain. Heparin bolus started and heparin qtt started. No Brlinta in formulary. Not given at [facility]. No hx of diabetes. No hx of stent. Hx of hypertension, stabel with Losartan and Carvedilol. She did have a visit to [facility] in December for elevated Troponins. BNP is elevated 2996. Chest xray with enlarged heart, this was noted on previous chest x-ray. Departure - Departure Time of Disposition: 13:30 Disposition: DC/Tfer to Acute Hospital 02 Reason for Transfer *Q: Other (non-stemi) Condition: Good Clinical Impression: Non-STEMI (non-ST elevated myocardial infarction) Referrals: PCP,None [Primary Care Provider] - Forms: ED Department Discharge - My Orders Last 24 Hours: My Active Orders 05/24/19 10:07 Saline Lock Insert [OM.PC] Stat 05/24/19 10:08 Cardiac Monitoring [RC] .As Directed 05/24/19 10:09 EKG Documentation Completion [RC] ASDIRECTED 05/24/19 11:30 Heparin Sodium/D5W [Heparin 25,000 Units in D5W 500 ML] 25,000 units in 500 ml IV TITRATE - Assessment/Plan Last 24 Hours: My Active Orders 05/24/19 10:07 Saline Lock Insert [OM.PC] Stat 05/24/19 10:08 Cardiac Monitoring [RC] .As Directed 05/24/19 10:09 EKG Documentation Completion [RC] ASDIRECTED 05/24/19 11:30 Heparin Sodium/D5W [Heparin 25,000 Units in D5W 500 ML] 25,000 units in 500 ml IV TITRATE Plan: Transfer to [facility] for NSTEMI. Transport via [facility] with Heparin qtt. No Brilinta given as none in stock. VSS and no chest pain. HR 60, BP 118/58, and SpO2=99%. Hospitalist accepting is Dr Alexandra, and cardiology consult with Dr Han.
--- NOTE | 2019-05-24 10:58 | CR ---
Date of Service: 05/24/19 Clinical Data: Chest Pain AP PORTABLE CHEST: Comparison is made to a prior exam dated 01/05/19. The heart remains enlarged, unchanged. The patient has taken a poor inspiration. The pulmonary vasculature is prominent with some cephalization of flow suggesting mild pulmonary venous congestion or fluid overload. The lungs are clear. No pneumothorax. No pleural effusions. [id number] MTDD
[2019-05-24] MEDS: Aspirin 81 MG Tab.Chew PO ONE (11:07)
[2019-05-24] MEDS: Heparin Sodium/D5W 25,000 UNITS/500 ML BAG IV SCH (11:48)
[2019-05-24 13:09] VITALS: BP 126/63; PULSE 57
[2019-05-25] MEDS: Heparin Sodium 5,000 UNITS/0.5 ML Syringe IVPUSH ONE (07:02)
== END 2019-05-24 13:38 ==
LOC: LB.ED 09:46
DX: I21.4 Non-ST elevation (NSTEMI) myocardial infarction (principal); I11.0 Hypertensive heart disease with heart failure; I50.9 Heart failure, unspecified; K21.9 Gastro-esophageal reflux disease without esophagitis; F32.9 Major depressive disorder, single episode, unspecified; Z88.2 Allergy status to sulfonamides; Z88.1 Allergy status to other antibiotic agents; Z88.8 Allergy status to other drugs, medicaments and biological substances; Z91.048 Other nonmedicinal substance allergy status; Z79.899 Other long term (current) drug therapy; Z79.82 Long term (current) use of aspirin
CPT/HCPCS: 36415; 71045; 80053; 81001; 83880; 84484; 85025; 85730; 93005; 96365; 96366; 99285; 99285-25; A9270-GY; J1644

== ENCOUNTER 2020-04-10 08:05 | Emergency (ER) | payer MEDICARE, OTHER ==
--- NOTE | 2020-04-10 08:38 | EDM.PDOC ---
ED HPI GENERAL MEDICAL PROBLEM - General Chief Complaint: Respiratory Problem Stated Complaint: Dyspnea Time Seen by Provider: 04/10/20 08:10 Source of Information: Reports: Patient History Limitations: Reports: No Limitations - History of Present Illness INITIAL COMMENTS - FREE TEXT/NARRATIVE: Pt states she has been feeling short of breath most of the night. Denies CP or diaphoresis. Denies swelling of her legs. No fever. Onset: Today Duration: Hour(s): (through out night (8hrs)) Location: Reports: Chest Severity: Mild Improves with: Reports: Rest Worsens with: Reports: Breathing Context: Reports: Activity Associated Symptoms: Denies: Chest Pain, Diaphoresis, Fever/Chills - Related Data Allergies Allergy/AdvReac Type Severity Reaction Status Date / Time sulfamethoxazole Allergy Unknown Rash Verified 05/24/19 11:23 [From Bactrim] trimethoprim [From Bactrim] Allergy Unknown Rash Verified 05/24/19 11:23 amoxicillin Allergy Facial Verified 05/24/19 11:30 Swelling ciprofloxacin Allergy Rash Verified 05/24/19 11:23 cortisone Allergy Itching Verified 05/24/19 11:23 hydrocodone [From [place]] Allergy Rash Verified 05/24/19 11:23 lisinopril Allergy Cough Verified 05/24/19 11:23 metronidazole [From Flagyl] Allergy Rash Verified 05/24/19 11:23 Metronidazole HCl Allergy Rash Verified 05/24/19 11:23 [From Flagyl] procaine HCl [From Novocain] Allergy Itching Verified 05/24/19 11:23 metals Allergy Itching Uncoded 05/24/19 11:23 Home Meds: Home Meds Losartan [Cozaar] 25 mg PO DAILY 07/02/13 [History] Omeprazole 20 mg PO ASDIRECTED 07/05/13 [History] Psyllium with Sucrose [Metamucil] 1 each PO DAILY PRN 02/01/15 [History] Aspirin [Corey Chewable] 81 mg PO DAILY 06/07/16 [History] Cholecalciferol (Vitamin D3) [Vitamin D3] 2,000 unit PO DAILY 06/07/16 [History] Docusate Sodium [Colace] 100 mg PO QPM PRN 06/07/16 [History] Furosemide 20 mg PO DAILY@1500 06/20/17 [History] Furosemide 40 mg PO DAILY 06/20/17 [History] Magnesium Hydroxide [Milk of Magnesia] 15 - 30 mg PO DAILY PRN 06/20/17 [History] Magnesium Oxide [Magnesium] 400 mg PO DAILY 06/20/17 [History] carvediloL [Carvedilol] 6.25 mg PO BIDMEALS 06/20/17 [History] Apixaban [Eliquis] 10 mg PO DAILY 05/24/19 [History] Past Medical History HEENT History: Reports: Cataract, Impaired Vision Cardiovascular History: Reports: Angina, Heart Failure, Hypertension Respiratory History: Reports: SOB, Other (See Below) Other Respiratory History: SOB when she lies flat Gastrointestinal History: Reports: GERD, Other (See Below) Other Gastrointestinal History: Reflux Genitourinary History: Reports: Other (See Below) Other Genitourinary History: history UTI 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: , 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: 1 girl 2 boys vag, lumpectomy Musculoskeletal History: Reports: Arthritis, Back Pain, Chronic Neurological History: Reports: Migraines Psychiatric History: Reports: Depression Endocrine/Metabolic History: Reports: Vitamin D Deficiency Hematologic History: Reports: Blood Transfusion(s) Dermatologic History: Reports: Psoriasis, Other (See Below) Other Dermatologic History: on finger - Infectious Disease History Infectious Disease History: Reports: Chicken Pox, Measles, Scarlet Fever, Shingles - Past Surgical History Cardiovascular Surgical History: Reports: Other (See Below) Musculoskeletal Surgical History: Reports: Hip Replacement, Knee Replacement, Shoulder Surgery Social & Family History - Caffeine Use Caffeine Use: Reports: Coffee Caffeine Use Comment: 1-2 cups/day - Living Situation & Occupation Living situation: Reports: Occupation: Retired ED ROS GENERAL - Review of Systems Review Of Systems: See Below Constitutional: Reports: Weakness, Fatigue. Denies: Fever, Malaise, Diaphoresis HEENT: Reports: No Symptoms Respiratory: Reports: Shortness of Breath, Cough Cardiovascular: Reports: Dyspnea on Exertion. Denies: Chest Pain GI/Abdominal: Reports: No Symptoms : Reports: No Symptoms Musculoskeletal: Reports: No Symptoms Skin: Reports: No Symptoms Neurological: Reports: No Symptoms Hematologic/Lymphatic: Reports: No Symptoms ED EXAM, GENERAL - Physical Exam Exam: See Below Exam Limited By: No Limitations General Appearance: Alert, WD/WN, Anxious, Mild Distress Throat/Mouth: Normal Inspection, Normal Lips, Normal Teeth, Normal Gums, Normal Oropharynx, Normal Voice, No Airway Compromise Head: Atraumatic, Normocephalic Neck: Normal Inspection, Supple, Non-Tender, Full Range of Motion Respiratory/Chest: Respiratory Distress, Crackles. No: Accessory Muscle Use, Retractions Cardiovascular: Normal Peripheral Pulses, Regular Rate, Rhythm, No Edema GI/Abdominal: Normal Bowel Sounds Back Exam: Normal Inspection Extremities: Normal Inspection Neurological: Alert, Oriented, CN II-XII Intact, Normal Cognition Psychiatric: Normal Affect Course - Vital Signs Last Recorded V/S: Last Vital Signs Temp 96.4 F L 04/10/20 13:30 Pulse 52 L 04/10/20 13:30 Resp 20 04/10/20 13:30 BP 129/54 L 04/10/20 13:30 Pulse Ox 95 04/10/20 13:30 - Orders/Labs/Meds Orders: Active Orders 24 hr Category Date Time Status EKG Documentation Completion [RC] ASDIRECTED Care 04/10/20 08:25 Active Medication Orders Azithromycin 1,000 mg/ Sodium (Chloride) 500 mls @ 500 mls/hr IV ONETIME ONE Stop: 04/10/20 17:57 Labs: Laboratory Tests 04/10/20 04/10/20 04/10/20 Range/Units 08:24 08:31 08:50 WBC 4.6 (4.0-11.0) K/uL RBC 3.78 L (3.80-5.80) M/uL Hgb 11.8 (11.5-16.5) g/dL Hct 37.0 (37.0-47.0) % MCV 98 H (76-96) fL MCH 31.2 (27.0-32.0) pg MCHC 31.9 (31.0-35.0) g/dL RDW 13.6 (11.0-16.0) % Plt Count 127 L (150-500) K/uL MPV 11.7 H (6.0-10.0) fL Neut % (Auto) 71.9 H (45.0-70.0) % Lymph % (Auto) 17.7 L (20.0-40.0) % [place] % (Auto) 7.8 (3.0-10.0) % Eos % (Auto) 2.4 (1.0-5.0) % Baso % (Auto) 0.2 (0.0-0.5) % Neut # (Auto) 3.32 (2.00-7.50) K/uL Lymph # (Auto) 0.82 L (1.50-4.00) K/uL [place] # (Auto) 0.36 (0.20-0.80) K/uL Eos # (Auto) 0.11 (0.04-0.40) K/uL Baso # (Auto) 0.01 L (0.02-0.10) K/uL Sodium 147 H (136-145) mmol/L Potassium 5.0 (3.5-5.1) mmol/L Chloride 109 H (98-107) mmol/L Carbon Dioxide 30.0 (21.0-32.0) mmol/L Anion Gap 13.0 (5.0-15.0) mmol/L BUN 27 H (8-26) mg/dL Creatinine 1.38 H (0.55-1.02) mg/dL Est Cr Clr Drug Dosing 32.85 mL/min Estimated GFR (MDRD) 37 L (>60) MLS/MIN BUN/Creatinine Ratio 19.6 (6-25) Glucose 107 H (74-100) mg/dL Calcium 8.7 (8.5-10.1) mg/dL Magnesium 2.3 (1.8-2.4) mg/dL Troponin I 0.894 H* (0.000-0.060) ng/mL B-Natriuretic Peptide 5673 H D (0-450) pg/mL COVID-19 (CAROLYN) 04/10/20 04/10/20 Range/Units 10:55 10:56 WBC (4.0-11.0) K/uL RBC (3.80-5.80) M/uL Hgb (11.5-16.5) g/dL Hct (37.0-47.0) % MCV (76-96) fL MCH (27.0-32.0) pg MCHC (31.0-35.0) g/dL RDW (11.0-16.0) % Plt Count (150-500) K/uL MPV (6.0-10.0) fL Neut % (Auto) (45.0-70.0) % Lymph % (Auto) (20.0-40.0) % [place] % (Auto) (3.0-10.0) % Eos % (Auto) (1.0-5.0) % Baso % (Auto) (0.0-0.5) % Neut # (Auto) (2.00-7.50) K/uL Lymph # (Auto) (1.50-4.00) K/uL [place] # (Auto) (0.20-0.80) K/uL Eos # (Auto) (0.04-0.40) K/uL Baso # (Auto) (0.02-0.10) K/uL Sodium (136-145) mmol/L Potassium (3.5-5.1) mmol/L Chloride (98-107) mmol/L Carbon Dioxide (21.0-32.0) mmol/L Anion Gap (5.0-15.0) mmol/L BUN (8-26) mg/dL Creatinine (0.55-1.02) mg/dL Est Cr Clr Drug Dosing mL/min Estimated GFR (MDRD) (>60) MLS/MIN BUN/Creatinine Ratio (6-25) Glucose (74-100) mg/dL Calcium (8.5-10.1) mg/dL Magnesium (1.8-2.4) mg/dL Troponin I 0.826 H* (0.000-0.060) ng/mL B-Natriuretic Peptide (0-450) pg/mL COVID-19 (CAROLYN) Negative Meds: Medications Generic Name Dose Route Start Last Admin Trade Name Freq PRN Reason Stop Dose Admin Azithromycin 1,000 mg/ Sodium 500 mls @ 500 mls/hr 04/10/20 16:58 Chloride IV 04/10/20 17:57 ONETIME ONE Discontinued Medications Generic Name Dose Route Start Last Admin Trade Name Freq PRN Reason Stop Dose Admin Aspirin 324 mg 04/10/20 11:02 04/10/20 11:04 Aspirin PO 04/10/20 11:03 324 mg ONETIME ONE Administration - Re-Assessments/Exams Free Text/Narrative Re-Assessment/Exam: Pt has rested in bed without further complaints 04/10/20 09:04 04/10/20 10:06 Xray sent Free Text/Narrative Re-Assessment/Exam: 04/10/20 10:[address]-T changes Tropoin elevated 0.89 In process of having yard operator review and give direction for transfer (ER vs Admit) Free Text/Narrative Re-Assessment/Exam: 04/10/20 17:14 Pt is being transferred to [place] for care for pneumonia and elevated Troponin Departure - Departure Time of Disposition: 17:16 Disposition: DC/Tfer to Acute Hospital 02 Condition: Fair Clinical Impression: Pneumonia, Shortness of breath - Discharge Information *PRESCRIPTION DRUG MONITORING PROGRAM REVIEWED*: Not Applicable *COPY OF PRESCRIPTION DRUG MONITORING REPORT IN PATIENT KARELY: Not Applicable Sepsis Event Note (ED) - Evaluation Sepsis Screening Result: No Definite Risk - Focused Exam Vital Signs: Vital Signs Temp Pulse Resp BP Pulse Ox 04/10/20 13:30 96.4 F L 52 L 20 129/54 L 95 04/10/20 08:09 97.5 F 58 L 18 146/70 H 95 - My Orders Last 24 Hours: My Active Orders 04/10/20 08:25 EKG Documentation Completion [RC] ASDIRECTED - Assessment/Plan Last 24 Hours: My Active Orders 04/10/20 08:25 EKG Documentation Completion [RC] ASDIRECTED
--- NOTE | 2020-04-10 09:26 | CR ---
Date of Service: 04/10/20 Clinical Data: sob AP AND LATERAL CHEST: Comparison is made to a prior exam dated 05/24/19. The heart is enlarged. The aorta is calcified and ectatic. There is mild prominence of the pulmonary vasculature with slight cephalization of flow suggesting mild pulmonary venous congestion. There is increased density in both lung bases, left greater than right consistent with basilar atelectasis or infiltrate. Pneumonia should be considered. There is slight blunting of both costophrenic angles suggesting very small bilateral pleural effusions. The exam is otherwise unchanged from the prior. No pneumothorax. [id number] [facility]
[2020-04-10] MEDS ORDERED: Aspirin 81 MG Tab.Chew PO ONE (11:02)
[2020-04-10] MEDS ORDERED: Azithromycin 1,000 MG in Sodium Chloride 0.9% 500 ML IV ONE (16:58)
[2020-04-10 17:01] VITALS: BP 129/54; PULSE 52
== END 2020-04-10 18:02 ==
LOC: LB.ED 08:05 → UNDOADMOB 14:48 → LB.MS 14:48 → UNDODISOB 18:02 → LB.ED 18:02
DX: J18.9 Pneumonia, unspecified organism (principal); I11.0 Hypertensive heart disease with heart failure; I50.9 Heart failure, unspecified; M19.90 Unspecified osteoarthritis, unspecified site; Z91.048 Other nonmedicinal substance allergy status; Z88.5 Allergy status to narcotic agent; Z88.1 Allergy status to other antibiotic agents; Z88.2 Allergy status to sulfonamides; Z88.6 Allergy status to analgesic agent; Z88.8 Allergy status to other drugs, medicaments and biological substances; Z91.09 Other allergy status, other than to drugs and biological substances; Z88.4 Allergy status to anesthetic agent; Z79.82 Long term (current) use of aspirin; Z79.899 Other long term (current) drug therapy; Z79.01 Long term (current) use of anticoagulants; Z20.828 Contact with and (suspected) exposure to other viral communicable diseases
CPT/HCPCS: 36415; 71046; 80048; 83735; 83880; 84484; 85025; 93005; 96365; 99285; A9270; J0456; J7040; U0002; 99283

== ENCOUNTER 2020-05-05 07:22 | Inpatient (IN) | payer MEDICARE, OTHER ==
--- NOTE | 2020-05-05 07:53 | EDM.PDOC ---
ED HPI GENERAL MEDICAL PROBLEM - General Chief Complaint: Respiratory Problem Stated Complaint: CHEST PAIN Time Seen by Provider: 05/05/20 07:30 Source of Information: Reports: Patient, Family History Limitations: Reports: No Limitations - History of Present Illness INITIAL COMMENTS - FREE TEXT/NARRATIVE: SOB since last night. Woke at 0200 with increased SOB orthopnea. Denies any fever, cough, chills, CP, abd pain, urinary symptoms, weakness. Severity: Mild Improves with: Reports: Other (sitting) Worsens with: Reports: Other (lying) Associated Symptoms: Reports: No Other Symptoms Head Pain Score (Numeric/FACES): 3 - Related Data Allergies Allergy/AdvReac Type Severity Reaction Status Date / Time sulfamethoxazole Allergy Unknown Rash Verified 05/05/20 08:52 [From Bactrim] trimethoprim [From Bactrim] Allergy Unknown Rash Verified 05/05/20 08:52 amoxicillin Allergy Facial Verified 05/05/20 08:52 Swelling ciprofloxacin Allergy Rash Verified 05/05/20 08:52 cortisone Allergy Itching Verified 05/05/20 08:52 hydrocodone [From [place]] Allergy Rash Verified 05/05/20 08:52 lisinopril Allergy Cough Verified 05/05/20 08:52 metronidazole [From Flagyl] Allergy Rash Verified 05/05/20 08:52 Metronidazole HCl Allergy Rash Verified 05/05/20 08:52 [From Flagyl] procaine HCl [From Novocain] Allergy Itching Verified 05/05/20 08:52 metals Allergy Itching Uncoded 05/05/20 08:52 Home Meds: Home Meds Losartan [Cozaar] 25 mg PO DAILY 07/02/13 [History] Omeprazole 20 mg PO ASDIRECTED 07/05/13 [History] Psyllium with Sucrose [Metamucil] 1 each PO DAILY PRN 02/01/15 [History] Aspirin [Corey Chewable] 81 mg PO DAILY 06/07/16 [History] Cholecalciferol (Vitamin D3) [Vitamin D3] 2,000 unit PO DAILY 06/07/16 [History] Docusate Sodium [Colace] 100 mg PO QPM PRN 06/07/16 [History] Furosemide 40 mg PO DAILY 06/20/17 [History] Magnesium Hydroxide [Milk of Magnesia] 15 - 30 mg PO DAILY PRN 06/20/17 [History] Magnesium Oxide [Magnesium] 400 mg PO DAILY 06/20/17 [History] carvediloL [Carvedilol] 6.25 mg PO BIDMEALS 06/20/17 [History] Apixaban [Eliquis] 2.5 mg PO BID 05/24/19 [History] Amiodarone [Cordarone] 200 mg PO DAILY 05/05/20 [History] atorvaSTATin [Lipitor] 20 mg PO BEDTIME 05/05/20 [History] Past Medical History HEENT History: Reports: Cataract, Impaired Vision Cardiovascular History: Reports: Angina, Heart Failure, Hypertension Respiratory History: Reports: SOB, Other (See Below) Other Respiratory History: SOB when she lies flat Gastrointestinal History: Reports: GERD, Other (See Below) Other Gastrointestinal History: Reflux Genitourinary History: Reports: Other (See Below) Other Genitourinary History: history UTI CELL CHANGER History: Reports: , Other (See Below) Other CELL CHANGER History: 1 girl 2 boys vag, lumpectomy Musculoskeletal History: Reports: Arthritis, Back Pain, Chronic Neurological History: Reports: Migraines Psychiatric History: Reports: Depression Endocrine/Metabolic History: Reports: Vitamin D Deficiency Hematologic History: Reports: Blood Transfusion(s) Dermatologic History: Reports: Psoriasis, Other (See Below) Other Dermatologic History: on finger - Infectious Disease History Infectious Disease History: Reports: Chicken Pox, Measles, Scarlet Fever, Shingles - Past Surgical History Cardiovascular Surgical History: Reports: Other (See Below) Musculoskeletal Surgical History: Reports: Hip Replacement, Knee Replacement, Shoulder Surgery Social & Family History - Caffeine Use Caffeine Use: Reports: Coffee Caffeine Use Comment: 1-2 cups/day - Living Situation & Occupation Living situation: Reports: Occupation: Retired ED ROS GENERAL - Review of Systems Review Of Systems: See Below Constitutional: Reports: No Symptoms HEENT: Reports: No Symptoms Respiratory: Reports: Shortness of Breath. Denies: Cough Cardiovascular: Reports: Dyspnea on Exertion, Orthopnea GI/Abdominal: Reports: No Symptoms : Reports: No Symptoms Musculoskeletal: Reports: No Symptoms Skin: Reports: No Symptoms Neurological: Reports: No Symptoms Psychiatric: Reports: No Symptoms Hematologic/Lymphatic: Reports: Easy Bleeding (eliquis) ED EXAM, GENERAL - Physical Exam Exam: See Below Exam Limited By: No Limitations General Appearance: Alert, No Apparent Distress Head: Atraumatic Neck: Normal Inspection, Full Range of Motion Respiratory/Chest: No Respiratory Distress, Crackles (crackles in bilateral lower lobes) Cardiovascular: Normal Peripheral Pulses, Regular Rate, Rhythm, No JVD, No Murmur Peripheral Pulses: 3+: Radial (L), Radial (R), Dorsalis Pedis (L), Dorsalis Pedis (R) GI/Abdominal: Normal Bowel Sounds, Soft Back Exam: Normal Inspection Extremities: Normal Inspection, Pedal Edema (very minimal bilater ankle edema greater on left, baseline for patient) Neurological: Alert, Oriented Psychiatric: Normal Affect, Normal Mood Skin Exam: Warm, Dry, Intact EKG INTERPRETATION EKG Date: 05/05/20 Time: 07:37 Rhythm: NSR (bradycardic) Rate (Beats/Min): 54 Comparison: No Change (no change compared with EKG 04/10/2020) Course - Vital Signs Last Recorded V/S: Last Vital Signs Temp 97 F 05/05/20 08:51 Pulse 50 L 05/05/20 09:08 Resp 16 05/05/20 09:08 BP 109/49 L 05/05/20 09:08 Pulse Ox 96 05/05/20 09:08 - Orders/Labs/Meds Orders: Active Orders 24 hr Category Date Time Status EKG Documentation Completion [RC] ASDIRECTED Care 05/05/20 07:45 Active UA W/MICROSCOPIC [URIN] Stat Lab 05/05/20 08:37 Results EKG 12 Lead [EK] Routine Ther 05/05/20 07:44 Ordered Medication Orders Doxycycline Hyclate 100 mg/ (Sodium Chloride) 100 mls @ 100 mls/hr IV Q12HR FABIANO Ceftriaxone Sodium 1 gm/ (Sodium Chloride) 50 mls @ 100 mls/hr IV Q24H [facility] Labs: Laboratory Tests 05/05/20 05/05/20 05/05/20 Range/Units 07:44 07:44 07:45 WBC 4.8 (4.0-11.0) K/uL RBC 3.89 (3.80-5.80) M/uL Hgb 12.1 (11.5-16.5) g/dL Hct 37.6 (37.0-47.0) % MCV 97 H (76-96) fL MCH 31.1 (27.0-32.0) pg MCHC 32.2 (31.0-35.0) g/dL RDW 13.5 (11.0-16.0) % Plt Count 136 L (150-500) K/uL MPV 11.7 H (6.0-10.0) fL Neut % (Auto) 71.1 H (45.0-70.0) % Lymph % (Auto) 19.1 L (20.0-40.0) % Hughes % (Auto) 7.1 (3.0-10.0) % Eos % (Auto) 2.5 (1.0-5.0) % Baso % (Auto) 0.2 (0.0-0.5) % Neut # (Auto) 3.42 (2.00-7.50) K/uL Lymph # (Auto) 0.92 L (1.50-4.00) K/uL Hughes # (Auto) 0.34 (0.20-0.80) K/uL Eos # (Auto) 0.12 (0.04-0.40) K/uL Baso # (Auto) 0.01 L (0.02-0.10) K/uL Sodium 140 (136-145) mmol/L Potassium 4.1 (3.5-5.1) mmol/L Chloride 105 (98-107) mmol/L Carbon Dioxide 28.8 (21.0-32.0) mmol/L Anion Gap 10.3 (5.0-15.0) mmol/L BUN 32 H (8-26) mg/dL Creatinine 1.81 H D (0.55-1.02) mg/dL Est Cr Clr Drug Dosing 24.17 mL/min Estimated GFR (MDRD) 27 L (>60) MLS/MIN BUN/Creatinine Ratio 17.7 (6-25) Glucose 101 H (74-100) mg/dL Calcium 8.5 (8.5-10.1) mg/dL Total Bilirubin 1.6 H (0.0-1.0) mg/dL AST 32 (15-37) U/L ALT 39 (12-78) U/L Alkaline Phosphatase 60 (46-116) U/L Troponin I 0.831 H* (0.000-0.060) ng/mL B-Natriuretic Peptide 4352 H (0-450) pg/mL Total Protein 6.5 (6.4-8.2) g/dL Albumin 3.3 L (3.4-5.0) g/dL Globulin 3.2 (2.2-4.2) g/dL Albumin/Globulin Ratio 1.0 (0.8-2.0) Urine Color Urine Appearance (CLEAR) Urine pH (5.0-8.0) Ur Specific [place] (1.003-1.030) Urine Protein (NEGATIVE) mg/dL Urine Glucose (UA) (NEGATIVE) mg/dL Urine Ketones (NEGATIVE) mg/dL Urine Occult Blood (NEGATIVE) Urine Nitrite (NEGATIVE) Urine Bilirubin (NEGATIVE) Urine Urobilinogen (0.2-1.0) E.U./dL Ur Leukocyte Esterase (NEGATIVE) 05/05/20 Range/Units 08:37 WBC (4.0-11.0) K/uL RBC (3.80-5.80) M/uL Hgb (11.5-16.5) g/dL Hct (37.0-47.0) % MCV (76-96) fL MCH (27.0-32.0) pg MCHC (31.0-35.0) g/dL RDW (11.0-16.0) % Plt Count (150-500) K/uL MPV (6.0-10.0) fL Neut % (Auto) (45.0-70.0) % Lymph % (Auto) (20.0-40.0) % Hughes % (Auto) (3.0-10.0) % Eos % (Auto) (1.0-5.0) % Baso % (Auto) (0.0-0.5) % Neut # (Auto) (2.00-7.50) K/uL Lymph # (Auto) (1.50-4.00) K/uL Hughes # (Auto) (0.20-0.80) K/uL Eos # (Auto) (0.04-0.40) K/uL Baso # (Auto) (0.02-0.10) K/uL Sodium (136-145) mmol/L Potassium (3.5-5.1) mmol/L Chloride (98-107) mmol/L Carbon Dioxide (21.0-32.0) mmol/L Anion Gap (5.0-15.0) mmol/L BUN (8-26) mg/dL Creatinine (0.55-1.02) mg/dL Est Cr Clr Drug Dosing mL/min Estimated GFR (MDRD) (>60) MLS/MIN BUN/Creatinine Ratio (6-25) Glucose (74-100) mg/dL Calcium (8.5-10.1) mg/dL Total Bilirubin (0.0-1.0) mg/dL AST (15-37) U/L ALT (12-78) U/L Alkaline Phosphatase (46-116) U/L Troponin I (0.000-0.060) ng/mL B-Natriuretic Peptide (0-450) pg/mL Total Protein (6.4-8.2) g/dL Albumin (3.4-5.0) g/dL Globulin (2.2-4.2) g/dL Albumin/Globulin Ratio (0.8-2.0) Urine Color Yellow Urine Appearance Clear (CLEAR) Urine pH 7.0 (5.0-8.0) Ur Specific [place] 1.020 (1.003-1.030) Urine Protein Negative (NEGATIVE) mg/dL Urine Glucose (UA) Negative (NEGATIVE) mg/dL Urine Ketones Negative (NEGATIVE) mg/dL Urine Occult Blood Trace-lysed H (NEGATIVE) Urine Nitrite Negative (NEGATIVE) Urine Bilirubin Negative (NEGATIVE) Urine Urobilinogen 0.2 (0.2-1.0) E.U./dL Ur Leukocyte Esterase Negative (NEGATIVE) Meds: Medications Generic Name Dose Route Start Last Admin Trade Name Freq PRN Reason Stop Dose Admin Doxycycline Hyclate 100 mg/ 100 mls @ 100 mls/hr 05/05/20 20:00 Sodium Chloride IV Q12HR FABIANO Ceftriaxone Sodium 1 gm/ 50 mls @ 100 mls/hr 05/05/20 10:00 Sodium Chloride IV Q24H [facility] Departure - Departure Time of Disposition: 10:15 Disposition: Admitted As Inpatient 68 Clinical Impression: Shortness of breath CHF exacerbation Qualifiers: Heart failure type: unspecified Qualified Code(s): I50.9 - Heart failure, unspecified Pneumonia Qualifiers: Pneumonia type: due to unspecified organism Laterality: unspecified laterality Lung location: unspecified part of lung Qualified Code(s): J18.9 - Pneumonia, unspecified organism - Discharge Information *PRESCRIPTION DRUG MONITORING PROGRAM REVIEWED*: Not Applicable *COPY OF PRESCRIPTION DRUG MONITORING REPORT IN PATIENT KARELY: Not Applicable Sepsis Event Note (ED) - Focused Exam Vital Signs: Vital Signs Temp Pulse Resp BP Pulse Ox 05/05/20 09:08 50 L 16 109/49 L 96 05/05/20 08:51 97 F 48 L 118/52 L 96 05/05/20 08:36 50 L 109/48 L 05/05/20 07:31 97.9 F 50 L 18 1121/50 H 100 - My Orders Last 24 Hours: My Active Orders 05/05/20 07:44 EKG 12 Lead [EK] Routine 05/05/20 07:45 EKG Documentation Completion [RC] ASDIRECTED 05/05/20 08:37 UA W/MICROSCOPIC [URIN] Stat - Assessment/Plan Last 24 Hours: My Active Orders 05/05/20 07:44 EKG 12 Lead [EK] Routine 05/05/20 07:45 EKG Documentation Completion [RC] ASDIRECTED 05/05/20 08:37 UA W/MICROSCOPIC [URIN] Stat
--- NOTE | 2020-05-05 08:44 | CR ---
DATE OF SERVICE: 05/05/2020 CLINICAL DATA: SOB AP Chest: The comparison is made to a prior exam dated 10 April 2020. The heart remains enlarged, unchanged. The aorta is calcified and ectatic. There is a linear density in the left lower lung consistent with linear atelectasis or fibrosis. There is increased density in the left lung base adjacent to the left hemidiaphragm consistent with basilar atelectasis or infiltrate. The lungs are otherwise clear. No pneumothorax. No pleural effusions. MTDD
[2020-05-05] MEDS ORDERED: Magnesium Hydroxide 400 MG/5 ML Susp 30 ML Cup PO PRN (10:23)
[2020-05-05] MEDS ORDERED: Docusate Sodium 100 MG Cap PO PRN (10:23)
[2020-05-05] MEDS ORDERED: Psyllium Husk Powder Sugar Free 5.85 GM Packet PO PRN (10:28)
[2020-05-05] MEDS ORDERED: Omeprazole 20 MG Cap.CR PO SCH (10:30)
[2020-05-05] MEDS: cefTRIAXone 1 GM in Sodium Chloride 0.9% 50 ML IV SCH (11:24)
[2020-05-05] MEDS: Doxycycline 100 MG in Sodium Chloride 0.9% 100 ML IV SCH ×2 (12:04→22:02)
[2020-05-05] MEDS: Carvedilol 6.25 MG Tab PO SCH (17:09)
[2020-05-05] MEDS: atorvaSTATin 20 MG Tab PO SCH (20:12)
[2020-05-05] MEDS: Apixaban 5 MG Tab PO SCH (20:12)
[2020-05-05] MEDS ORDERED: Menthol/Zinc Oxide Ointment 113 GM Tube TOP PRN (20:38)
[2020-05-05] MEDS ORDERED: diphenhydrAMINE 25 MG Cap PO PRN (23:01)
[2020-05-06] MEDS: Losartan 25 MG Tab PO SCH (08:28)
[2020-05-06] MEDS: Cholecalciferol (Vitamin D3) 2,000 Unit Cap PO SCH (08:29)
[2020-05-06] MEDS: Amiodarone 200 MG Tab PO SCH (08:29)
[2020-05-06] MEDS: Magnesium Oxide 400 MG Tab PO SCH (08:29)
[2020-05-06] MEDS: Apixaban 5 MG Tab PO SCH ×2 (08:30→19:04)
[2020-05-06] MEDS: Aspirin 81 MG Tab.Chew PO SCH (08:31)
[2020-05-06] MEDS: Omeprazole 20 MG Cap.CR PO SCH (08:31)
[2020-05-06] MEDS: Lactobacillus Acidophilus/Lactobacillus Sporogenes (Probiotic) Tab PO SCH (08:31)
[2020-05-06] MEDS: Carvedilol 6.25 MG Tab PO SCH ×2 (08:32→16:53)
[2020-05-06] MEDS ORDERED: Acetaminophen 325 MG Tab ONE (09:02)
[2020-05-06] MEDS: Acetaminophen 325 MG Tab PO PRN (09:05)
[2020-05-06] MEDS: cefTRIAXone 1 GM in Sodium Chloride 0.9% 50 ML IV SCH (09:42)
[2020-05-06] MEDS: Doxycycline 100 MG in Sodium Chloride 0.9% 100 ML IV SCH ×2 (10:31→23:22)
[2020-05-06] MEDS ORDERED: LORazepam Conc Solution 2 MG/ML 30 ML Bottle PO PRN (16:23)
[2020-05-06] MEDS: atorvaSTATin 20 MG Tab PO SCH (19:04)
[2020-05-06] MEDS: LORazepam 0.5 MG Tab PO PRN (21:14)
--- NOTE | 2020-05-06 22:36 | PCM.PN ---
- General Info Date of Service: 05/06/20 Subjective Update: Reassessed patient this morning, states she did not sleep well due to being anxious thinking about her 's recent passing, she was given benadryl last night without help. We discussed trying 0.5mg ativan for sleep and anxiety tonight and she is agreeable to the plan. Denies any CP, fever, SOB at the time of her assessment. lung sounds CTA Functional Status: Reports: Pain Controlled, Tolerating Diet - Review of Systems General: Reports: Fatigue HEENT: Reports: No Symptoms Pulmonary: Reports: No Symptoms Cardiovascular: Reports: No Symptoms Gastrointestinal: Reports: No Symptoms Genitourinary: Reports: No Symptoms Musculoskeletal: Reports: No Symptoms Skin: Reports: No Symptoms Neurological: Reports: No Symptoms Psychiatric: Reports: Anxiety - Patient Data Vitals - Most Recent: Last Vital Signs Temp 98.1 F 05/06/20 20:00 Pulse 54 L 05/06/20 20:00 Resp 18 05/06/20 20:00 BP 114/62 05/06/20 20:00 Pulse Ox 96 05/06/20 20:00 Weight - Most Recent: 164 lb 6 oz I&O - Last 24 Hours: Intake & Output 05/06/20 05/06/20 05/06/20 06:59 14:59 22:59 Intake Total 467 1767 Output Total 550 700 Balance -83 1067 Lab Results Last 24 Hours: Laboratory Results - last 24 hr 05/06/20 05/06/20 Range/Units 08:15 08:40 WBC 4.7 (4.0-11.0) K/uL RBC 3.75 L (3.80-5.80) M/uL Hgb 11.5 (11.5-16.5) g/dL Hct 36.1 L (37.0-47.0) % MCV 96 (76-96) fL MCH 30.7 (27.0-32.0) pg MCHC 31.9 (31.0-35.0) g/dL RDW 13.7 (11.0-16.0) % Plt Count 134 L (150-500) K/uL MPV 11.6 H (6.0-10.0) fL Neut % (Auto) 67.1 (45.0-70.0) % Lymph % (Auto) 21.5 (20.0-40.0) % Gray % (Auto) 8.2 (3.0-10.0) % Eos % (Auto) 3.0 (1.0-5.0) % Baso % (Auto) 0.2 (0.0-0.5) % Neut # (Auto) 3.13 (2.00-7.50) K/uL Lymph # (Auto) 1.00 L (1.50-4.00) K/uL Gray # (Auto) 0.38 (0.20-0.80) K/uL Eos # (Auto) 0.14 (0.04-0.40) K/uL Baso # (Auto) 0.01 L (0.02-0.10) K/uL Sodium 142 (136-145) mmol/L Potassium 4.3 (3.5-5.1) mmol/L Chloride 107 (98-107) mmol/L Carbon Dioxide 27.8 (21.0-32.0) mmol/L Anion Gap 11.5 (5.0-15.0) mmol/L BUN 26 (8-26) mg/dL Creatinine 1.33 H D (0.55-1.02) mg/dL Est Cr Clr Drug Dosing 32.90 mL/min Estimated GFR (MDRD) 38 L (>60) MLS/MIN BUN/Creatinine Ratio 19.5 (6-25) Glucose 92 (74-100) mg/dL Calcium 8.4 L (8.5-10.1) mg/dL Total Bilirubin 1.3 H (0.0-1.0) mg/dL AST 27 (15-37) U/L ALT 35 (12-78) U/L Alkaline Phosphatase 56 (46-116) U/L Troponin I 0.770 H* (0.000-0.060) ng/mL B-Natriuretic Peptide 3688 H (0-450) pg/mL Total Protein 6.0 L (6.4-8.2) g/dL Albumin 3.1 L (3.4-5.0) g/dL Globulin 2.9 (2.2-4.2) g/dL Albumin/Globulin Ratio 1.1 (0.8-2.0) Phillip Results Last 24 Hours: Microbiology 05/05/20 09:57 MRSA Surveillance Culture - Final Nares, Left NO MRSA ISOLATED Med Orders - Current: Current Medications Acetaminophen (Tylenol) 325 mg PO Q4H PRN PRN Reason: Headache Last Admin: 05/06/20 09:05 Dose: 325 mg Documented by: Amiodarone HCl (Cordarone) 200 mg PO DAILY [facility] Last Admin: 05/06/20 08:29 Dose: 200 mg Documented by: Apixaban (Eliquis) 2.5 mg PO BID [facility] Last Admin: 05/06/20 19:04 Dose: 2.5 mg Documented by: Aspirin (Aspirin) 81 mg PO DAILY [facility] Last Admin: 05/06/20 08:31 Dose: 81 mg Documented by: Atorvastatin Calcium (Lipitor) 20 mg PO BEDTIME [facility] Last Admin: 05/06/20 19:04 Dose: 20 mg Documented by: Calamine/Phenol (Calmoseptine) 0 gm TOP QID PRN PRN Reason: Perineal Comfort Measure Last Admin: 05/05/20 22:04 Dose: 1 applic Documented by: Carvedilol (Coreg) 6.25 mg PO BIDMEALS [facility] Last Admin: 05/06/20 16:53 Dose: Not Given Documented by: Cholecalciferol (Vitamin D3) 2,000 unit PO DAILY [facility] Last Admin: 05/06/20 08:29 Dose: 2,000 unit Documented by: Diphenhydramine HCl (Benadryl) 25 mg PO BEDTIME PRN PRN Reason: Insomnia Last Admin: 05/05/20 23:17 Dose: 25 mg Documented by: Docusate Sodium (Colace) 100 mg PO QPM PRN PRN Reason: Constipation Doxycycline Hyclate 100 mg/ (Sodium Chloride) 100 mls @ 100 mls/hr IV Q12H [facility] Last Admin: 05/06/20 10:31 Dose: 75 mls/hr Documented by: Ceftriaxone Sodium 1 gm/ (Sodium Chloride) 50 mls @ 100 mls/hr IV Q24H [facility] Last Admin: 05/06/20 09:42 Dose: 100 mls/hr Documented by: Lactobacillus Acidophilus (Acidolphilus Extra Strength) 1 tab PO DAILY [facility] Last Admin: 05/06/20 08:31 Dose: 1 tab Documented by: Lorazepam (Ativan) 0.5 mg PO BEDTIME PRN PRN Reason: Insomnia Last Admin: 05/06/20 21:14 Dose: 0.5 mg Documented by: Losartan Potassium (Cozaar) 25 mg PO DAILY [facility] Last Admin: 05/06/20 08:28 Dose: 25 mg Documented by: Magnesium Hydroxide (Milk Of Magnesia) 30 ml PO DAILY PRN PRN Reason: Constipation Magnesium Oxide (Magnesium Oxide) 400 mg PO DAILY [facility] Last Admin: 05/06/20 08:29 Dose: 400 mg Documented by: Omeprazole (Omeprazole) 20 mg PO DAILY [facility] Last Admin: 05/06/20 08:31 Dose: 20 mg Documented by: Psyllium Husk (Metamucil Sugar Free) 1 pkt PO DAILY PRN PRN Reason: Constipation Discontinued Medications Acetaminophen (Tylenol) Confirm Administered Dose 325 mg .ROUTE .STK-MED ONE Stop: 05/06/20 09:03 Last Admin: 05/06/20 09:08 Dose: Not Given Documented by: Lorazepam (Ativan) 0.5 mg PO BEDTIME PRN PRN Reason: Insomnia Omeprazole (Omeprazole) 20 mg PO ASDIRECTED [facility] Sepsis Event Note - Evaluation Sepsis Screening Result: No Definite Risk - Focused Exam Vital Signs: Vital Signs Temp Temp Pulse Pulse Pulse Resp BP 05/06/20 20:00 98.1 F 54 L 18 05/06/20 16:53 57 L 122/65 05/06/20 16:00 97.6 F 57 L 16 05/06/20 12:00 98.1 F 58 L 18 BP Pulse Ox 05/06/20 20:00 114/62 96 05/06/20 16:53 05/06/20 16:00 122/65 97 05/06/20 12:00 103/48 L 95 - Problem List Review Problem List Initiated/Reviewed/Updated: Yes - My Orders Last 24 Hours: My Active Orders 05/05/20 23:01 diphenhydrAMINE [Benadryl] 25 mg PO BEDTIME PRN 05/06/20 08:00 Acidophilus/Lactobac Spor [Acidolphilus Extra Strength] 1 tab PO DAILY Amiodarone [Cordarone] 200 mg PO DAILY Aspirin 81 mg PO DAILY Cholecalciferol (Vitamin D3) [Vitamin D3] 2,000 unit PO DAILY Losartan [Cozaar] 25 mg PO DAILY Magnesium Oxide 400 mg PO DAILY Omeprazole 20 mg PO DAILY 05/06/20 08:59 Acetaminophen [TylenoL] 325 mg PO Q4H PRN 05/06/20 16:28 LORazepam [Ativan] 0.5 mg PO BEDTIME PRN 05/07/20 08:00 BASIC METABOLIC PANEL,BMP [CHEM] Routine TROPONIN I [CHEM] Routine 05/08/20 08:00 Echo Comp wo Cont [US] Stat
[2020-05-07] MEDS: Omeprazole 20 MG Cap.CR PO SCH (07:54)
[2020-05-07] MEDS: Acetaminophen 325 MG Tab PO PRN (08:16)
[2020-05-07] MEDS: Magnesium Oxide 400 MG Tab PO SCH (08:17)
[2020-05-07] MEDS: Lactobacillus Acidophilus/Lactobacillus Sporogenes (Probiotic) Tab PO SCH (08:17)
[2020-05-07] MEDS: Amiodarone 200 MG Tab PO SCH (08:17)
[2020-05-07] MEDS: Aspirin 81 MG Tab.Chew PO SCH (08:18)
[2020-05-07] MEDS: Carvedilol 6.25 MG Tab PO SCH ×2 (08:18→17:00)
[2020-05-07] MEDS: Losartan 25 MG Tab PO SCH (08:18)
[2020-05-07] MEDS: Cholecalciferol (Vitamin D3) 2,000 Unit Cap PO SCH (08:19)
[2020-05-07] MEDS: Apixaban 5 MG Tab PO SCH ×2 (08:19→20:45)
[2020-05-07] MEDS: cefTRIAXone 1 GM in Sodium Chloride 0.9% 50 ML IV SCH (10:44)
[2020-05-07] MEDS: Doxycycline 100 MG in Sodium Chloride 0.9% 100 ML IV SCH ×2 (11:22→22:20)
[2020-05-07] MEDS ORDERED: Furosemide 40 MG/4 ML VIAL IVPUSH ONE (12:19)
[2020-05-07] MEDS ORDERED: Furosemide 40 MG Tab PO ONE (12:42)
--- NOTE | 2020-05-07 13:20 | PCM.PN ---
- General Info Date of Service: 05/07/20 Subjective Update: Patient reports sleeping well last night after 0.5mg ativan. Lung sounds CTA. Nursing reports 4 pound weight gain so lasix PO given. Patient to have echocardiogram tomorrow, then visit with Dr. Orozco for assessment. Functional Status: Reports: Pain Controlled - Review of Systems General: Reports: No Symptoms HEENT: Reports: No Symptoms Pulmonary: Reports: Shortness of Breath (reports 2 episodes today, ) Cardiovascular: Reports: No Symptoms Gastrointestinal: Reports: No Symptoms Genitourinary: Reports: No Symptoms Musculoskeletal: Reports: No Symptoms Skin: Reports: No Symptoms Neurological: Reports: No Symptoms Psychiatric: Reports: No Symptoms - Patient Data Vitals - Most Recent: Last Vital Signs Temp 97.4 F 05/07/20 12:00 Pulse 54 L 05/07/20 12:00 Resp 16 05/07/20 12:00 BP 115/50 L 05/07/20 12:00 Pulse Ox 98 05/07/20 12:00 Weight - Most Recent: 166 lb 2 oz I&O - Last 24 Hours: Intake & Output 05/06/20 05/07/20 05/07/20 22:59 06:59 14:59 Intake Total 1767 250 Output Total 700 450 Balance 1067 -200 Lab Results Last 24 Hours: Laboratory Results - last 24 hr 05/07/20 05/07/20 Range/Units 09:00 11:20 Sodium 141 (136-145) mmol/L Potassium 3.9 (3.5-5.1) mmol/L Chloride 107 (98-107) mmol/L Carbon Dioxide 24.3 (21.0-32.0) mmol/L Anion Gap 13.6 (5.0-15.0) mmol/L BUN 22 (8-26) mg/dL Creatinine 1.50 H (0.55-1.02) mg/dL Est Cr Clr Drug Dosing 29.17 mL/min Estimated GFR (MDRD) 33 L (>60) MLS/MIN BUN/Creatinine Ratio 14.7 (6-25) Glucose 137 H D (74-100) mg/dL Calcium 8.2 L (8.5-10.1) mg/dL Troponin I 0.727 H* (0.000-0.060) ng/mL B-Natriuretic Peptide 4001 H (0-450) pg/mL Phillip Results Last 24 Hours: Microbiology 05/05/20 09:57 MRSA Surveillance Culture - Final Nares, Left NO MRSA ISOLATED Med Orders - Current: Current Medications Acetaminophen (Tylenol) 325 mg PO Q4H PRN PRN Reason: Headache Last Admin: 05/07/20 08:16 Dose: 325 mg Documented by: Amiodarone HCl (Cordarone) 200 mg PO DAILY [facility] Last Admin: 05/07/20 08:17 Dose: 200 mg Documented by: Apixaban (Eliquis) 2.5 mg PO BID [facility] Last Admin: 05/07/20 08:19 Dose: 2.5 mg Documented by: Aspirin (Aspirin) 81 mg PO DAILY [facility] Last Admin: 05/07/20 08:18 Dose: 81 mg Documented by: Atorvastatin Calcium (Lipitor) 20 mg PO BEDTIME [facility] Last Admin: 05/06/20 19:04 Dose: 20 mg Documented by: Calamine/Phenol (Calmoseptine) 0 gm TOP QID PRN PRN Reason: Perineal Comfort Measure Last Admin: 05/05/20 22:04 Dose: 1 applic Documented by: Carvedilol (Coreg) 6.25 mg PO BIDMEALS [facility] Last Admin: 05/07/20 08:18 Dose: Not Given Documented by: Cholecalciferol (Vitamin D3) 2,000 unit PO DAILY [facility] Last Admin: 05/07/20 08:19 Dose: 2,000 unit Documented by: Diphenhydramine HCl (Benadryl) 25 mg PO BEDTIME PRN PRN Reason: Insomnia Last Admin: 05/05/20 23:17 Dose: 25 mg Documented by: Docusate Sodium (Colace) 100 mg PO QPM PRN PRN Reason: Constipation Doxycycline Hyclate 100 mg/ (Sodium Chloride) 100 mls @ 100 mls/hr IV Q12H [facility] Last Admin: 05/07/20 11:22 Dose: 75 mls/hr Documented by: Ceftriaxone Sodium 1 gm/ (Sodium Chloride) 50 mls @ 100 mls/hr IV Q24H [facility] Last Admin: 05/07/20 10:44 Dose: 100 mls/hr Documented by: Lactobacillus Acidophilus (Acidolphilus Extra Strength) 1 tab PO DAILY [facility] Last Admin: 05/07/20 08:17 Dose: 1 tab Documented by: Lorazepam (Ativan) 0.5 mg PO BEDTIME PRN PRN Reason: Insomnia Last Admin: 05/06/20 21:14 Dose: 0.5 mg Documented by: Losartan Potassium (Cozaar) 25 mg PO DAILY [facility] Last Admin: 05/07/20 08:18 Dose: 25 mg Documented by: Magnesium Hydroxide (Milk Of Magnesia) 30 ml PO DAILY PRN PRN Reason: Constipation Magnesium Oxide (Magnesium Oxide) 400 mg PO DAILY [facility] Last Admin: 05/07/20 08:17 Dose: 400 mg Documented by: Omeprazole (Omeprazole) 20 mg PO DAILY [facility] Last Admin: 05/07/20 07:54 Dose: 20 mg Documented by: Psyllium Husk (Metamucil Sugar Free) 1 pkt PO DAILY PRN PRN Reason: Constipation Discontinued Medications Acetaminophen (Tylenol) Confirm Administered Dose 325 mg .ROUTE .STK-MED ONE Stop: 05/06/20 09:03 Last Admin: 05/06/20 09:08 Dose: Not Given Documented by: Furosemide (Lasix) 40 mg IVPUSH NOW ONE Stop: 05/07/20 12:20 Last Admin: 05/07/20 12:50 Dose: Not Given Documented by: Furosemide (Lasix) 40 mg PO ONETIME ONE Stop: 05/07/20 12:43 Last Admin: 05/07/20 12:49 Dose: 40 mg Documented by: Lorazepam (Ativan) 0.5 mg PO BEDTIME PRN PRN Reason: Insomnia Omeprazole (Omeprazole) 20 mg PO ASDIRECTED [facility] Sepsis Event Note - Evaluation Sepsis Screening Result: No Definite Risk - Focused Exam Vital Signs: Vital Signs Temp Temp Pulse Pulse Resp BP BP 05/07/20 12:00 97.4 F 54 L 16 115/50 L 05/07/20 08:18 134/67 05/07/20 08:00 97.9 F 56 L 18 134/67 05/07/20 04:46 97.3 F 61 18 119/69 Pulse Ox 05/07/20 12:00 98 05/07/20 08:18 05/07/20 08:00 94 L 05/07/20 04:46 95 - Problem List Review Problem List Initiated/Reviewed/Updated: Yes - My Orders Last 24 Hours: My Active Orders 05/06/20 16:28 LORazepam [Ativan] 0.5 mg PO BEDTIME PRN 05/08/20 08:00 Echo Comp wo Cont [US] Stat
[2020-05-07] MEDS: atorvaSTATin 20 MG Tab PO SCH (20:45)
[2020-05-07] MEDS: LORazepam 0.5 MG Tab PO PRN (21:44)
[2020-05-08] MEDS: Apixaban 5 MG Tab PO SCH ×2 (09:04→19:39)
[2020-05-08] MEDS: Lactobacillus Acidophilus/Lactobacillus Sporogenes (Probiotic) Tab PO SCH (09:04)
[2020-05-08] MEDS: Aspirin 81 MG Tab.Chew PO SCH (09:04)
[2020-05-08] MEDS: Amiodarone 200 MG Tab PO SCH (09:04)
[2020-05-08] MEDS: Cholecalciferol (Vitamin D3) 2,000 Unit Cap PO SCH (09:05)
[2020-05-08] MEDS: Magnesium Oxide 400 MG Tab PO SCH (09:05)
[2020-05-08] MEDS: Carvedilol 6.25 MG Tab PO SCH ×2 (09:07→17:53)
[2020-05-08] MEDS: Losartan 25 MG Tab PO SCH (09:07)
[2020-05-08] MEDS: Omeprazole 20 MG Cap.CR PO SCH (09:08)
--- NOTE | 2020-05-08 10:41 | PCM.PN ---
- General Info Date of Service: 05/08/20 Subjective Update: Patient having ongoing dyspnea. She remains short of breath on exertion and does note some improvement from yesterday and especially from admission. She notes some weakness but her main issues is the dyspnea. - Review of Systems General: Reports: Weakness HEENT: Reports: No Symptoms Pulmonary: Reports: Shortness of Breath Cardiovascular: Reports: No Symptoms Gastrointestinal: Reports: No Symptoms Genitourinary: Reports: Frequency Musculoskeletal: Reports: No Symptoms Skin: Reports: No Symptoms Neurological: Reports: Weakness Psychiatric: Reports: No Symptoms - Patient Data Vitals - Most Recent: Last Vital Signs Temp 36.5 C 05/08/20 08:00 Pulse 58 L 05/08/20 09:07 Resp 18 05/08/20 08:00 BP 142/69 H 05/08/20 09:07 Pulse Ox 100 05/08/20 08:00 Weight - Most Recent: 75.353 kg I&O - Last 24 Hours: Intake & Output 05/07/20 05/08/20 05/08/20 22:59 06:59 14:59 Intake Total 2160 100 Output Total 1100 2400 Balance 1060 -2300 Lab Results Last 24 Hours: Laboratory Results - last 24 hr 05/07/20 05/08/20 Range/Units 11:20 08:00 Troponin I 0.775 H* (0.000-0.060) ng/mL B-Natriuretic Peptide 4001 H (0-450) pg/mL Med Orders - Current: Current Medications Acetaminophen (Tylenol) 325 mg PO Q4H PRN PRN Reason: Headache Last Admin: 05/07/20 08:16 Dose: 325 mg Documented by: Amiodarone HCl (Cordarone) 200 mg PO DAILY [facility] Last Admin: 05/08/20 09:04 Dose: 200 mg Documented by: Apixaban (Eliquis) 2.5 mg PO BID [facility] Last Admin: 05/08/20 09:04 Dose: 2.5 mg Documented by: Aspirin (Aspirin) 81 mg PO DAILY [facility] Last Admin: 05/08/20 09:04 Dose: 81 mg Documented by: Atorvastatin Calcium (Lipitor) 20 mg PO BEDTIME [facility] Last Admin: 05/07/20 20:45 Dose: 20 mg Documented by: Calamine/Phenol (Calmoseptine) 0 gm TOP QID PRN PRN Reason: Perineal Comfort Measure Last Admin: 05/05/20 22:04 Dose: 1 applic Documented by: Carvedilol (Coreg) 6.25 mg PO BIDMEALS [facility] Last Admin: 05/08/20 09:07 Dose: Not Given Documented by: Cholecalciferol (Vitamin D3) 2,000 unit PO DAILY [facility] Last Admin: 05/08/20 09:05 Dose: 2,000 unit Documented by: Diphenhydramine HCl (Benadryl) 25 mg PO BEDTIME PRN PRN Reason: Insomnia Last Admin: 05/05/20 23:17 Dose: 25 mg Documented by: Docusate Sodium (Colace) 100 mg PO QPM PRN PRN Reason: Constipation Doxycycline Hyclate 100 mg/ (Sodium Chloride) 100 mls @ 100 mls/hr IV Q12H [facility] Last Admin: 05/07/20 22:20 Dose: 100 mls/hr Documented by: Ceftriaxone Sodium 1 gm/ (Sodium Chloride) 50 mls @ 100 mls/hr IV Q24H [facility] Last Admin: 05/07/20 10:44 Dose: 100 mls/hr Documented by: Lactobacillus Acidophilus (Acidolphilus Extra Strength) 1 tab PO DAILY [facility] Last Admin: 05/08/20 09:04 Dose: 1 tab Documented by: Lorazepam (Ativan) 0.5 mg PO BEDTIME PRN PRN Reason: Insomnia Last Admin: 05/07/20 21:44 Dose: 0.5 mg Documented by: Losartan Potassium (Cozaar) 25 mg PO DAILY [facility] Last Admin: 05/08/20 09:07 Dose: 25 mg Documented by: Magnesium Hydroxide (Milk Of Magnesia) 30 ml PO DAILY PRN PRN Reason: Constipation Magnesium Oxide (Magnesium Oxide) 400 mg PO DAILY [facility] Last Admin: 05/08/20 09:05 Dose: 400 mg Documented by: Omeprazole (Omeprazole) 20 mg PO DAILY [facility] Last Admin: 05/08/20 09:08 Dose: 20 mg Documented by: Psyllium Husk (Metamucil Sugar Free) 1 pkt PO DAILY PRN PRN Reason: Constipation Discontinued Medications Acetaminophen (Tylenol) Confirm Administered Dose 325 mg .ROUTE .STK-MED ONE Stop: 05/06/20 09:03 Last Admin: 05/06/20 09:08 Dose: Not Given Documented by: Furosemide (Lasix) 40 mg IVPUSH NOW ONE Stop: 05/07/20 12:20 Last Admin: 05/07/20 12:50 Dose: Not Given Documented by: Furosemide (Lasix) 40 mg PO ONETIME ONE Stop: 05/07/20 12:43 Last Admin: 05/07/20 12:49 Dose: 40 mg Documented by: Lorazepam (Ativan) 0.5 mg PO BEDTIME PRN PRN Reason: Insomnia Omeprazole (Omeprazole) 20 mg PO ASDIRECTED FABIANO - Exam General: Alert, Oriented, Cooperative HEENT: Pupils Equal, Pupils Reactive, EOMI Neck: Supple Lungs: Crackles Cardiovascular: Regular Rate, Regular Rhythm GI/Abdominal Exam: Normal Bowel Sounds, Soft, Non-Tender Extremities: Pedal Edema (1+ - improved) Peripheral Pulses: 2+: Dorsalis Pedis (L), Dorsalis Pedis (R) Skin: Warm, Dry, Intact Neurological: No New Focal Deficit Psy/Mental Status: Alert, Normal Affect, Normal Mood Sepsis Event Note - Evaluation Sepsis Screening Result: No Definite Risk - Focused Exam Vital Signs: Vital Signs Temp Temp Pulse Pulse Resp BP BP 05/08/20 09:07 58 L 142/69 H 05/08/20 08:00 36.5 C 57 L 18 142/69 H 05/08/20 05:20 36.5 C 59 L 18 125/68 05/08/20 00:38 36.4 C 60 16 120/67 Pulse Ox 05/08/20 09:07 05/08/20 08:00 100 05/08/20 05:20 98 05/08/20 00:38 97 - Problem List & Annotations (1) CHF exacerbation SNOMED Code(s): 920264246, 47012464074539 Code(s): I50.9 - HEART FAILURE, UNSPECIFIED Status: Acute Priority: High Current Visit: Yes Qualifiers: Heart failure type: combined systolic and diastolic Qualified Code(s): I50.43 - Acute on chronic combined systolic (congestive) and diastolic (congestive) heart failure (2) Pneumonia SNOMED Code(s): 669666108 Code(s): J18.9 - PNEUMONIA, UNSPECIFIED ORGANISM Status: Acute Priority: High Current Visit: Yes Qualifiers: Pneumonia type: due to unspecified organism Laterality: unspecified laterality Lung location: unspecified part of lung Qualified Code(s): J18.9 - Pneumonia, unspecified organism (3) Shortness of breath SNOMED Code(s): 357438654 Code(s): R06.02 - SHORTNESS OF BREATH Status: Acute Priority: High Current Visit: Yes Onset Date: 06/07/16 Annotation/Comment:: 06/07/16 - 1. Ischemia with shortness of breath. 2. Possible pneumonia. (4) Non-STEMI (non-ST elevated myocardial infarction) SNOMED Code(s): 68343396 Code(s): I21.4 - NON-ST ELEVATION (NSTEMI) MYOCARDIAL INFARCTION Status: Suspected Priority: High Current Visit: Yes - Problem List Review Problem List Initiated/Reviewed/Updated: Yes - Plan Plan:: Patient to continue on IV diuretics for her CHF. F/U Echo results and management. Continue antibiotics and f/u labs in AM. Consider f/u CXR as needed. Renal dysfunction - consider f/u labs and gentle hydration. patient had multiple IV sticks to get a line due to line failure. We will have to use oral meds until able to get another IV line.
[2020-05-08] MEDS: cefTRIAXone 1 GM in Sodium Chloride 0.9% 50 ML IV SCH (12:15)
[2020-05-08] MEDS: Doxycycline 100 MG in Sodium Chloride 0.9% 100 ML IV SCH (12:15)
[2020-05-08] MEDS: atorvaSTATin 20 MG Tab PO SCH (19:39)
[2020-05-08] MEDS: Doxycycline 100 MG Cap PO SCH (19:40)
[2020-05-08] MEDS: LORazepam 0.5 MG Tab PO PRN (19:40)
[2020-05-09] MEDS: Apixaban 5 MG Tab PO SCH ×2 (07:39→20:18)
[2020-05-09] MEDS: Aspirin 81 MG Tab.Chew PO SCH (07:40)
[2020-05-09] MEDS: Amiodarone 200 MG Tab PO SCH (07:40)
[2020-05-09] MEDS: Omeprazole 20 MG Cap.CR PO SCH (07:40)
[2020-05-09] MEDS: Cholecalciferol (Vitamin D3) 2,000 Unit Cap PO SCH (07:40)
[2020-05-09] MEDS: Magnesium Oxide 400 MG Tab PO SCH (07:41)
[2020-05-09] MEDS: Losartan 25 MG Tab PO SCH (07:41)
[2020-05-09] MEDS: Doxycycline 100 MG Cap PO SCH ×2 (07:42→20:19)
[2020-05-09] MEDS: Lactobacillus Acidophilus/Lactobacillus Sporogenes (Probiotic) Tab PO SCH (07:42)
[2020-05-09] MEDS: Carvedilol 6.25 MG Tab PO SCH ×2 (07:43→16:50)
[2020-05-09] MEDS ORDERED: Azithromycin 250 MG Tab PO SCH (08:00)
[2020-05-09] MEDS ORDERED: Furosemide 40 MG/4 ML VIAL IVPUSH SCH (08:00)
[2020-05-09] MEDS: Furosemide 40 MG Tab PO SCH (09:35)
--- NOTE | 2020-05-09 13:35 | PCM.PN ---
- General Info Date of Service: 05/09/20 Functional Status: Reports: Pain Controlled, Tolerating Diet - Review of Systems General: Reports: Weakness HEENT: Reports: No Symptoms Pulmonary: Reports: Shortness of Breath Cardiovascular: Reports: No Symptoms Gastrointestinal: Reports: No Symptoms Genitourinary: Reports: Frequency Musculoskeletal: Reports: No Symptoms Skin: Reports: No Symptoms Neurological: Reports: Weakness Psychiatric: Reports: No Symptoms - Patient Data Vitals - Most Recent: Last Vital Signs Temp 36.4 C 05/09/20 12:00 Pulse 60 05/09/20 12:00 Resp 18 05/09/20 12:00 BP 129/60 05/09/20 12:00 Pulse Ox 100 05/09/20 12:00 Weight - Most Recent: 75.353 kg I&O - Last 24 Hours: Intake & Output 05/08/20 05/09/20 05/09/20 22:59 06:59 14:59 Intake Total 1040 Output Total 875 200 Balance 165 -200 Lab Results Last 24 Hours: Laboratory Results - last 24 hr 05/09/20 05/09/20 Range/Units 07:10 07:10 WBC 4.0 (4.0-11.0) K/uL RBC 3.65 L (3.80-5.80) M/uL Hgb 11.3 L (11.5-16.5) g/dL Hct 35.2 L (37.0-47.0) % MCV 96 (76-96) fL MCH 31.0 (27.0-32.0) pg MCHC 32.1 (31.0-35.0) g/dL RDW 13.8 (11.0-16.0) % Plt Count 121 L (150-500) K/uL MPV 11.3 H (6.0-10.0) fL Neut % (Auto) 63.7 (45.0-70.0) % Lymph % (Auto) 21.4 (20.0-40.0) % Hettinger % (Auto) 10.3 H (3.0-10.0) % Eos % (Auto) 4.3 (1.0-5.0) % Baso % (Auto) 0.3 (0.0-0.5) % Neut # (Auto) 2.53 (2.00-7.50) K/uL Lymph # (Auto) 0.85 L (1.50-4.00) K/uL Hettinger # (Auto) 0.41 (0.20-0.80) K/uL Eos # (Auto) 0.17 (0.04-0.40) K/uL Baso # (Auto) 0.01 L (0.02-0.10) K/uL Sodium 145 (136-145) mmol/L Potassium 4.3 (3.5-5.1) mmol/L Chloride 108 H (98-107) mmol/L Carbon Dioxide 28.2 (21.0-32.0) mmol/L Anion Gap 13.1 (5.0-15.0) mmol/L BUN 24 (8-26) mg/dL Creatinine 1.37 H (0.55-1.02) mg/dL Est Cr Clr Drug Dosing 31.94 mL/min Estimated GFR (MDRD) 37 L (>60) MLS/MIN BUN/Creatinine Ratio 17.5 (6-25) Glucose 94 D (74-100) mg/dL Calcium 8.3 L (8.5-10.1) mg/dL Troponin I 0.787 H* (0.000-0.060) ng/mL Med Orders - Current: Current Medications Acetaminophen (Tylenol) 325 mg PO Q4H PRN PRN Reason: Headache Last Admin: 05/07/20 08:16 Dose: 325 mg Documented by: Amiodarone HCl (Cordarone) 200 mg PO DAILY [facility] Last Admin: 05/09/20 07:40 Dose: 200 mg Documented by: Apixaban (Eliquis) 2.5 mg PO BID [facility] Last Admin: 05/09/20 07:39 Dose: 2.5 mg Documented by: Aspirin (Aspirin) 81 mg PO DAILY [facility] Last Admin: 05/09/20 07:40 Dose: 81 mg Documented by: Atorvastatin Calcium (Lipitor) 20 mg PO BEDTIME [facility] Last Admin: 05/08/20 19:39 Dose: 20 mg Documented by: Calamine/Phenol (Calmoseptine) 0 gm TOP QID PRN PRN Reason: Perineal Comfort Measure Last Admin: 05/05/20 22:04 Dose: 1 applic Documented by: Carvedilol (Coreg) 6.25 mg PO BIDMEALS [facility] Last Admin: 05/09/20 07:43 Dose: Not Given Documented by: Cefuroxime Axetil (Ceftin) 500 mg PO BID [facility] Last Admin: 05/09/20 07:42 Dose: 500 mg Documented by: Cholecalciferol (Vitamin D3) 2,000 unit PO DAILY [facility] Last Admin: 05/09/20 07:40 Dose: 2,000 unit Documented by: Diphenhydramine HCl (Benadryl) 25 mg PO BEDTIME PRN PRN Reason: Insomnia Last Admin: 05/05/20 23:17 Dose: 25 mg Documented by: Docusate Sodium (Colace) 100 mg PO QPM PRN PRN Reason: Constipation Doxycycline Hyclate (Vibramycin) 100 mg PO BID [facility] Last Admin: 05/09/20 07:42 Dose: 100 mg Documented by: Furosemide (Lasix) 40 mg PO DAILY [facility] Last Admin: 05/09/20 09:35 Dose: 40 mg Documented by: Lactobacillus Acidophilus (Acidolphilus Extra Strength) 1 tab PO DAILY [facility] Last Admin: 05/09/20 07:42 Dose: 1 tab Documented by: Lorazepam (Ativan) 0.5 mg PO BEDTIME PRN PRN Reason: Insomnia Last Admin: 05/08/20 19:40 Dose: 0.5 mg Documented by: Losartan Potassium (Cozaar) 25 mg PO DAILY [facility] Last Admin: 05/09/20 07:41 Dose: 25 mg Documented by: Magnesium Hydroxide (Milk Of Magnesia) 30 ml PO DAILY PRN PRN Reason: Constipation Magnesium Oxide (Magnesium Oxide) 400 mg PO DAILY [facility] Last Admin: 05/09/20 07:41 Dose: 400 mg Documented by: Omeprazole (Omeprazole) 20 mg PO DAILY [facility] Last Admin: 05/09/20 07:40 Dose: 20 mg Documented by: Psyllium Husk (Metamucil Sugar Free) 1 pkt PO DAILY PRN PRN Reason: Constipation Discontinued Medications Acetaminophen (Tylenol) Confirm Administered Dose 325 mg .ROUTE .STK-MED ONE Stop: 05/06/20 09:03 Last Admin: 05/06/20 09:08 Dose: Not Given Documented by: Azithromycin (Zithromax) 500 mg PO DAILY [facility] Stop: 05/13/20 08:01 Furosemide (Lasix) 40 mg IVPUSH NOW ONE Stop: 05/07/20 12:20 Last Admin: 05/07/20 12:50 Dose: Not Given Documented by: Furosemide (Lasix) 40 mg PO ONETIME ONE Stop: 05/07/20 12:43 Last Admin: 05/07/20 12:49 Dose: 40 mg Documented by: Furosemide (Lasix) 40 mg IVPUSH DAILY [facility] Last Admin: 05/09/20 11:18 Dose: Not Given Documented by: Doxycycline Hyclate 100 mg/ (Sodium Chloride) 100 mls @ 100 mls/hr IV Q12H [facility] Last Admin: 05/08/20 12:15 Dose: Not Given Documented by: Ceftriaxone Sodium 1 gm/ (Sodium Chloride) 50 mls @ 100 mls/hr IV Q24H [facility] Last Admin: 05/08/20 12:15 Dose: Not Given Documented by: Lorazepam (Ativan) 0.5 mg PO BEDTIME PRN PRN Reason: Insomnia Omeprazole (Omeprazole) 20 mg PO ASDIRECTED [facility] - Exam General: Alert, Oriented, Cooperative HEENT: Pupils Equal, Pupils Reactive, EOMI Neck: Supple Lungs: Normal Respiratory Effort, Rales, Rhonchi Cardiovascular: Regular Rate, Regular Rhythm GI/Abdominal Exam: Normal Bowel Sounds, Soft, Non-Tender Extremities: Pedal Edema (1+ improving) Skin: Warm, Dry, Intact Neurological: No New Focal Deficit, Cranial Nerves Intact Psy/Mental Status: Alert, Normal Affect, Normal Mood Sepsis Event Note - Evaluation Sepsis Screening Result: No Definite Risk - Focused Exam Vital Signs: Vital Signs Temp Pulse Pulse Resp BP BP BP 05/09/20 12:00 36.4 C 60 18 129/60 05/09/20 07:43 58 L 142/55 H 05/09/20 07:41 142/55 H 05/09/20 07:33 36.5 C 58 L 18 142/55 H Pulse Ox 05/09/20 12:00 100 05/09/20 07:43 05/09/20 07:41 05/09/20 07:33 97 - Problem List & Annotations (1) CHF exacerbation SNOMED Code(s): 442370630, 34242808764554 Code(s): I50.9 - HEART FAILURE, UNSPECIFIED Status: Acute Priority: High Current Visit: Yes Qualifiers: Heart failure type: combined systolic and diastolic Qualified Code(s): I50.43 - Acute on chronic combined systolic (congestive) and diastolic (congestive) heart failure (2) Pneumonia SNOMED Code(s): 120082141 Code(s): J18.9 - PNEUMONIA, UNSPECIFIED ORGANISM Status: Acute Priority: High Current Visit: Yes Qualifiers: Pneumonia type: due to unspecified organism Laterality: unspecified laterality Lung location: unspecified part of lung Qualified Code(s): J18.9 - Pneumonia, unspecified organism (3) Shortness of breath SNOMED Code(s): 670386333 Code(s): R06.02 - SHORTNESS OF BREATH Status: Acute Priority: [facility] Current Visit: Yes Onset Date: 06/07/16 Annotation/Comment:: 06/07/16 - 1. Ischemia with shortness of breath. 2. Possible pneumonia. (4) Non-STEMI (non-ST elevated myocardial infarction) SNOMED Code(s): 57754443 Code(s): I21.4 - NON-ST ELEVATION (NSTEMI) MYOCARDIAL INFARCTION Status: Suspected Priority: [facility] Current Visit: Yes - Problem List Review Problem List Initiated/Reviewed/Updated: Yes - My Orders Last 24 Hours: My Active Orders 05/08/20 20:00 Cefuroxime [Ceftin] 500 mg PO BID Doxycycline [Vibramycin] 100 mg PO BID 05/09/20 09:15 Furosemide [Lasix] 40 mg PO DAILY - Plan Plan:: Patient to continue on IV diuretics for her CHF. F/U Echo results and management. Continue antibiotics and f/u labs in AM. Consider f/u CXR as needed. Renal dysfunction - consider f/u labs and gentle hydration. patient had multiple IV sticks to get a line due to line failure. We will have to use oral meds until able to get another IV line. 05/09/20 Pending ECHO results. F/u IV line if able to get in. Continue oral meds at this time. F/u labs in AM. F/u renal function as directed. Continue antibiotics. Troponins remain elevated likely due to persistent CHF exacerbation and renal dysfunction. Patient to remain on telemetry and monitor taper of troponins - if it continues to elevated we may transfer to Cardiology.
[2020-05-09] MEDS: atorvaSTATin 20 MG Tab PO SCH (20:19)
[2020-05-09] MEDS: LORazepam 0.5 MG Tab PO PRN (21:18)
[2020-05-10] MEDS: Aspirin 81 MG Tab.Chew PO SCH (07:32)
[2020-05-10] MEDS: Cholecalciferol (Vitamin D3) 2,000 Unit Cap PO SCH (07:32)
[2020-05-10] MEDS: Magnesium Oxide 400 MG Tab PO SCH (07:32)
[2020-05-10] MEDS: Lactobacillus Acidophilus/Lactobacillus Sporogenes (Probiotic) Tab PO SCH (07:33)
[2020-05-10] MEDS: Omeprazole 20 MG Cap.CR PO SCH (07:33)
[2020-05-10] MEDS: Doxycycline 100 MG Cap PO SCH (07:33)
[2020-05-10] MEDS: Furosemide 40 MG Tab PO SCH (07:33)
[2020-05-10] MEDS: Amiodarone 200 MG Tab PO SCH (07:34)
[2020-05-10] MEDS: Apixaban 5 MG Tab PO SCH (07:34)
[2020-05-10] MEDS: Losartan 25 MG Tab PO SCH (07:35)
[2020-05-10] MEDS: Carvedilol 6.25 MG Tab PO SCH (07:36)
[2020-05-10 11:59] VITALS: BP 121/54; PULSE 55
--- NOTE | 2020-05-10 14:57 | PCM.DCSUM1 ---
Discharge Summary - Discharge Data Discharge Date: 05/10/20 Discharge Disposition: Home, Self-Care 01 Condition: Good - Referral to Home Health Primary Care Physician: PCP None - Discharge Diagnosis/Problem(s) (1) CHF exacerbation SNOMED Code(s): 147555519, [id number] ICD Code: I50.9 - HEART FAILURE, UNSPECIFIED Status: Acute Priority: High Current Visit: Yes Qualifiers: Heart failure type: combined systolic and diastolic Qualified Code(s): I50.43 - Acute on chronic combined systolic (congestive) and diastolic (congestive) heart failure (2) Pneumonia SNOMED Code(s): 149896489 ICD Code: J18.9 - PNEUMONIA, UNSPECIFIED ORGANISM Status: Acute Priority: High Current Visit: Yes Qualifiers: Pneumonia type: due to unspecified organism Laterality: unspecified laterality Lung location: unspecified part of lung Qualified Code(s): J18.9 - Pneumonia, unspecified organism (3) Shortness of breath SNOMED Code(s): 612869316 ICD Code: R06.02 - SHORTNESS OF BREATH Status: Acute Priority: High Current Visit: Yes Onset Date: 06/07/16 Problem Details: 06/07/16 - 1. Ischemia with shortness of breath. 2. Possible pneumonia. (4) Non-STEMI (non-ST elevated myocardial infarction) SNOMED Code(s): 05908513 ICD Code: I21.4 - NON-ST ELEVATION (NSTEMI) MYOCARDIAL INFARCTION Status: Suspected Priority: High Current Visit: Yes - Patient Instructions Diet: Heart Healthy Diet, Low Sodium Activity: As Tolerated Showering/Bathing: May Shower Notify Provider of: Fever, Increased Pain, Swelling and Redness, Nausea and/or Vomiting - Discharge Plan *PRESCRIPTION DRUG MONITORING PROGRAM REVIEWED*: Not Applicable *COPY OF PRESCRIPTION DRUG MONITORING REPORT IN PATIENT KARELY: Not Applicable Prescriptions/Med Rec: LORazepam [Ativan] 0.5 mg PO BEDTIME PRN #30 tablet PRN Reason: Insomnia Cefuroxime Axetil [Ceftin] 500 mg PO BID #20 tablet carvediloL [Coreg] 3.125 mg PO BIDMEALS #60 tablet Home Medications: Home Meds Losartan [Cozaar] 25 mg PO DAILY 07/02/13 [History] Omeprazole 20 mg PO ASDIRECTED 07/05/13 [History] Psyllium with Sucrose [Metamucil] 1 each PO DAILY PRN 02/01/15 [History] Aspirin [Corey Chewable Aspirin] 81 mg PO DAILY 06/07/16 [History] Cholecalciferol (Vitamin D3) [Vitamin D3] 2,000 unit PO DAILY 06/07/16 [History] Docusate Sodium [Colace] 100 mg PO QPM PRN 06/07/16 [History] Furosemide 40 mg PO DAILY 06/20/17 [History] Magnesium Oxide [Magnesium] 400 mg PO DAILY 06/20/17 [History] Apixaban [Eliquis] 2.5 mg PO BID 05/24/19 [History] Amiodarone [Cordarone] 200 mg PO DAILY 05/05/20 [History] atorvaSTATin [Lipitor] 20 mg PO BEDTIME 05/05/20 [History] Acetaminophen [Tylenol] 325 mg PO Q4H PRN tablet 05/10/20 [Rx] Acidophilus/Lactobac Spor [Acidolphilus X-Strength] 1 tab PO DAILY tablet 05/10/20 [Rx] Cefuroxime Axetil [Ceftin] 500 mg PO BID #20 tablet 05/10/20 [Rx] Furosemide [Lasix] 40 mg PO DAILY tablet 05/10/20 [Rx] LORazepam [Ativan] 0.5 mg PO BEDTIME PRN #30 tablet 05/10/20 [Rx] carvediloL [Coreg] 3.125 mg PO BIDMEALS #60 tablet 05/10/20 [Rx] diphenhydrAMINE [Benadryl] 25 mg PO BEDTIME PRN cap 05/10/20 [Rx] Patient Handouts: Shortness of Breath, Adult, [id number], Heart Failure, Self Care, [id number], Community-Acquired Pneumonia, Adult, [id number] Forms: ED Department Discharge Referrals: PCP,None [Primary Care Provider] - - Discharge Summary/Plan Comment DC Time >30 min.: Yes Discharge Summary/Plan Comment: Counseled on CHF management and monitoring and f/u daily weights. Discussed lasix use and dose. Ceftin Rx sent to pharmacy. Discussed decrease of Coreg from 6.25 to 3.125. Counseled on ativan use and side effects and f/u in clinic. Discussed f/u labs in clinic as directed. - General Info Date of Service: 05/10/20 Functional Status: Reports: Tolerating Diet, Ambulating - Review of Systems General: Reports: Weakness HEENT: Reports: No Symptoms Pulmonary: Reports: No Symptoms Cardiovascular: Reports: No Symptoms Gastrointestinal: Reports: No Symptoms Genitourinary: Reports: No Symptoms Musculoskeletal: Reports: No Symptoms Neurological: Reports: No Symptoms Psychiatric: Reports: No Symptoms - Patient Data Vitals - Most Recent: Last Vital Signs Temp 36.3 C 05/10/20 11:59 Pulse 55 L 05/10/20 11:59 Resp 18 05/10/20 11:59 BP 121/54 L 05/10/20 11:59 Pulse Ox 98 05/10/20 11:59 Weight - Most Recent: 74.049 kg I&O - Last 24 hours: Intake & Output 05/09/20 05/10/20 05/10/20 22:59 06:59 14:59 Intake Total 3060 750 Output Total 2650 Balance 410 750 Lab Results - Last 24 hrs: Laboratory Results - last 24 hr 05/10/20 05/10/20 Range/Units 05:30 05:30 WBC 4.0 (4.0-11.0) K/uL RBC 3.61 L (3.80-5.80) M/uL Hgb 11.1 L (11.5-16.5) g/dL Hct 34.7 L (37.0-47.0) % MCV 96 (76-96) fL MCH 30.7 (27.0-32.0) pg MCHC 32.0 (31.0-35.0) g/dL RDW 13.8 (11.0-16.0) % Plt Count 137 L (150-500) K/uL MPV 11.7 H (6.0-10.0) fL Neut % (Auto) 58.7 (45.0-70.0) % Lymph % (Auto) 27.2 (20.0-40.0) % Dixie % (Auto) 9.9 (3.0-10.0) % Eos % (Auto) 4.0 (1.0-5.0) % Baso % (Auto) 0.2 (0.0-0.5) % Neut # (Auto) 2.37 (2.00-7.50) K/uL Lymph # (Auto) 1.10 L (1.50-4.00) K/uL Dixie # (Auto) 0.40 (0.20-0.80) K/uL Eos # (Auto) 0.16 (0.04-0.40) K/uL Baso # (Auto) 0.01 L (0.02-0.10) K/uL Sodium 143 (136-145) mmol/L Potassium 4.0 (3.5-5.1) mmol/L Chloride 108 H (98-107) mmol/L Carbon Dioxide 29.8 (21.0-32.0) mmol/L Anion Gap 9.2 (5.0-15.0) mmol/L BUN 26 (8-26) mg/dL Creatinine 1.52 H (0.55-1.02) mg/dL Est Cr Clr Drug Dosing 28.79 mL/min Estimated GFR (MDRD) 33 L (>60) MLS/MIN BUN/Creatinine Ratio 17.1 (6-25) Glucose 91 (74-100) mg/dL Calcium 8.2 L (8.5-10.1) mg/dL Troponin I 0.759 H* (0.000-0.060) ng/mL Med Orders - Current: Current Medications Acetaminophen (Tylenol) 325 mg PO Q4H PRN PRN Reason: Headache Last Admin: 05/07/20 08:16 Dose: 325 mg Documented by: Amiodarone HCl (Cordarone) 200 mg PO DAILY [facility] Last Admin: 05/10/20 07:34 Dose: 200 mg Documented by: Apixaban (Eliquis) 2.5 mg PO BID [facility] Last Admin: 05/10/20 07:34 Dose: 2.5 mg Documented by: Aspirin (Aspirin) 81 mg PO DAILY [facility] Last Admin: 05/10/20 07:32 Dose: 81 mg Documented by: Atorvastatin Calcium (Lipitor) 20 mg PO BEDTIME [facility] Last Admin: 05/09/20 20:19 Dose: 20 mg Documented by: Calamine/Phenol (Calmoseptine) 0 gm TOP QID PRN PRN Reason: Perineal Comfort Measure Last Admin: 05/05/20 22:04 Dose: 1 applic Documented by: Carvedilol (Coreg) 6.25 mg PO BIDMEALS [facility] Last Admin: 05/10/20 07:36 Dose: Not Given Documented by: Cefuroxime Axetil (Ceftin) 500 mg PO BID [facility] Last Admin: 05/10/20 07:33 Dose: 500 mg Documented by: Cholecalciferol (Vitamin D3) 2,000 unit PO DAILY [facility] Last Admin: 05/10/20 07:32 Dose: 2,000 unit Documented by: Diphenhydramine HCl (Benadryl) 25 mg PO BEDTIME PRN PRN Reason: Insomnia Last Admin: 05/05/20 23:17 Dose: 25 mg Documented by: Docusate Sodium (Colace) 100 mg PO QPM PRN PRN Reason: Constipation Last Admin: 05/10/20 07:32 Dose: 100 mg Documented by: Doxycycline Hyclate (Vibramycin) 100 mg PO BID [facility] Last Admin: 05/10/20 07:33 Dose: 100 mg Documented by: Furosemide (Lasix) 40 mg PO DAILY [facility] Last Admin: 05/10/20 07:33 Dose: 40 mg Documented by: Lactobacillus Acidophilus (Acidolphilus Extra Strength) 1 tab PO DAILY [facility] Last Admin: 05/10/20 07:33 Dose: 1 tab Documented by: Lorazepam (Ativan) 0.5 mg PO BEDTIME PRN PRN Reason: Insomnia Last Admin: 05/09/20 21:18 Dose: 0.5 mg Documented by: Losartan Potassium (Cozaar) 25 mg PO DAILY [facility] Last Admin: 05/10/20 07:35 Dose: 25 mg Documented by: Magnesium Hydroxide (Milk Of Magnesia) 30 ml PO DAILY PRN PRN Reason: Constipation Magnesium Oxide (Magnesium Oxide) 400 mg PO DAILY [facility] Last Admin: 05/10/20 07:32 Dose: 400 mg Documented by: Omeprazole (Omeprazole) 20 mg PO DAILY [facility] Last Admin: 05/10/20 07:33 Dose: 20 mg Documented by: Psyllium Husk (Metamucil Sugar Free) 1 pkt PO DAILY PRN PRN Reason: Constipation Discontinued Medications Acetaminophen (Tylenol) Confirm Administered Dose 325 mg .ROUTE .STK-MED ONE Stop: 05/06/20 09:03 Last Admin: 05/06/20 09:08 Dose: Not Given Documented by: Azithromycin (Zithromax) 500 mg PO DAILY [facility] Stop: 05/13/20 08:01 Furosemide (Lasix) 40 mg IVPUSH NOW ONE Stop: 05/07/20 12:20 Last Admin: 05/07/20 12:50 Dose: Not Given Documented by: Furosemide (Lasix) 40 mg PO ONETIME ONE Stop: 05/07/20 12:43 Last Admin: 05/07/20 12:49 Dose: 40 mg Documented by: Furosemide (Lasix) 40 mg IVPUSH DAILY [facility] Last Admin: 05/09/20 11:18 Dose: Not Given Documented by: Doxycycline Hyclate 100 mg/ (Sodium Chloride) 100 mls @ 100 mls/hr IV Q12H [facility] Last Admin: 05/08/20 12:15 Dose: Not Given Documented by: Ceftriaxone Sodium 1 gm/ (Sodium Chloride) 50 mls @ 100 mls/hr IV Q24H [facility] Last Admin: 05/08/20 12:15 Dose: Not Given Documented by: Lorazepam (Ativan) 0.5 mg PO BEDTIME PRN PRN Reason: Insomnia Omeprazole (Omeprazole) 20 mg PO ASDIRECTED FABIANO - Exam General: Reports: Alert, Oriented, Cooperative HEENT: Reports: Pupils Equal, Pupils Reactive, EOMI Neck: Reports: Supple Lungs: Reports: Clear to Auscultation, Normal Respiratory Effort Cardiovascular: Reports: Regular Rate, Regular Rhythm Back Exam: Reports: Normal Inspection Extremities: Normal Inspection Skin: Reports: Warm, Dry, Intact Neurological: Reports: No New Focal Deficit
== END 2020-05-10 14:45 | disposition home or self-care (01) | DRG 280 ==
LOC: LB.ED 07:22 → LB.MS 09:29
PROVIDERS: ADMIT Nurse Practitioner; ATTEND Nurse Practitioner
DX: I50.43 Acute on chronic combined systolic (congestive) and diastolic (congestive) heart failure (principal); I50.9 Heart failure, unspecified; I21.4 Non-ST elevation (NSTEMI) myocardial infarction; J18.9 Pneumonia, unspecified organism; I11.0 Hypertensive heart disease with heart failure; Z20.828 Contact with and (suspected) exposure to other viral communicable diseases; H54.7 Unspecified visual loss; K21.9 Gastro-esophageal reflux disease without esophagitis; M19.90 Unspecified osteoarthritis, unspecified site; G89.29 Other chronic pain; M54.9 Dorsalgia, unspecified; G43.909 Migraine, unspecified, not intractable, without status migrainosus; F32.9 Major depressive disorder, single episode, unspecified; E55.9 Vitamin D deficiency, unspecified; L40.9 Psoriasis, unspecified; Z96.649 Presence of unspecified artificial hip joint; Z88.6 Allergy status to analgesic agent; Z88.4 Allergy status to anesthetic agent; Z96.659 Presence of unspecified artificial knee joint; Z79.82 Long term (current) use of aspirin; Z79.899 Other long term (current) drug therapy; Z91.048 Other nonmedicinal substance allergy status; Z79.01 Long term (current) use of anticoagulants; Z88.2 Allergy status to sulfonamides; Z88.1 Allergy status to other antibiotic agents; Z88.8 Allergy status to other drugs, medicaments and biological substances; Z91.09 Other allergy status, other than to drugs and biological substances; Z87.440 Personal history of urinary (tract) infections
CPT/HCPCS: 36415; 71045; 80048; 80053; 81001; 83880; 84484; 85025; 93005; 93306; 99285-25; A9270-GY; J0696; J3490; J7050; U0002

== ENCOUNTER 2020-08-07 09:12 | Emergency (ER) | payer MEDICARE ==
[2020-08-07] MEDS ORDERED: fentaNYL 100 MCG/2 ML SDV ONE (10:58)
[2020-08-07] MEDS: fentaNYL 100 MCG/2 ML SDV IVPUSH PRN ×2 (11:00→11:20)
[2020-08-07] MEDS: Midazolam 1 MG/ML 2 ML SDV IVPUSH ONE ×2 (11:00→11:25)
--- NOTE | 2020-08-07 11:41 | EDM.PDOC ---
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 She was getting dressed in a seated position and bent over and dislocated her hip. This has happened in the past. CMS+, pedal pulses present, right leg is shortened and rotated. Onset: Today Location: Reports: Lower Extremity, Right Quality: Reports: Ache Improves with: Reports: Immobilization Worsens with: Reports: Movement Associated Symptoms: Reports: No Other Symptoms Right Hip Pain Score (Numeric/FACES): 7 - Related Data Allergies Allergy/AdvReac Type Severity Reaction Status Date / Time sulfamethoxazole Allergy Unknown Rash Verified 05/05/20 08:52 [From Bactrim] trimethoprim [From Bactrim] Allergy Unknown Rash Verified 05/05/20 08:52 amoxicillin Allergy Facial Verified 05/05/20 08:52 Swelling ciprofloxacin Allergy Rash Verified 05/05/20 08:52 cortisone Allergy Itching Verified 05/05/20 08:52 hydrocodone [From [facility]] Allergy Rash Verified 05/05/20 08:52 lisinopril Allergy Cough Verified 05/05/20 08:52 metronidazole [From Flagyl] Allergy Rash Verified 05/05/20 08:52 Metronidazole HCl Allergy Rash Verified 05/05/20 08:52 [From Flagyl] procaine HCl [From Novocain] Allergy Itching Verified 05/05/20 08:52 metals Allergy Itching Uncoded 05/05/20 08:52 Home Meds: Home Meds Losartan [Cozaar] 25 mg PO DAILY 07/02/13 [History] Omeprazole 20 mg PO ASDIRECTED 07/05/13 [History] Psyllium with Sucrose [Metamucil] 1 each PO DAILY PRN 02/01/15 [History] Aspirin [Corey Chewable Aspirin] 81 mg PO DAILY 06/07/16 [History] Cholecalciferol (Vitamin D3) [Vitamin D3] 2,000 unit PO DAILY 06/07/16 [History] Docusate Sodium [Colace] 100 mg PO QPM PRN 06/07/16 [History] Furosemide 40 mg PO DAILY 06/20/17 [History] Magnesium Oxide [Magnesium] 400 mg PO DAILY 06/20/17 [History] Apixaban [Eliquis] 2.5 mg PO BID 05/24/19 [History] Amiodarone [Cordarone] 200 mg PO DAILY 05/05/20 [History] atorvaSTATin [Lipitor] 20 mg PO BEDTIME 05/05/20 [History] Acetaminophen [Tylenol] 325 mg PO Q4H PRN tablet 05/10/20 [Rx] Acidophilus/Lactobac Spor [Acidolphilus X-Strength] 1 tab PO DAILY tablet 05/10/20 [Rx] Cefuroxime Axetil [Ceftin] 500 mg PO BID #20 tablet 05/10/20 [Rx] Furosemide [Lasix] 40 mg PO DAILY tablet 05/10/20 [Rx] LORazepam [Ativan] 0.5 mg PO BEDTIME PRN #30 tablet 05/10/20 [Rx] carvediloL [Coreg] 3.125 mg PO BIDMEALS #60 tablet 05/10/20 [Rx] diphenhydrAMINE [Benadryl] 25 mg PO BEDTIME PRN cap 05/10/20 [Rx] Past Medical History HEENT History: Reports: Cataract, Impaired Vision Cardiovascular History: Reports: Angina, Heart Failure, Hypertension Respiratory History: Reports: SOB, Other (See Below) Other Respiratory History: SOB when she lies flat Gastrointestinal History: Reports: GERD, Other (See Below) Other Gastrointestinal History: Reflux Genitourinary History: Reports: Other (See Below) Other Genitourinary History: history UTI [employer] History: Reports: , Other (See Below) Other [employer] History: 1 girl 2 boys vag, lumpectomy Musculoskeletal History: Reports: Arthritis, Back Pain, Chronic Neurological History: Reports: Migraines Psychiatric History: Reports: Depression Endocrine/Metabolic History: Reports: Vitamin D Deficiency Hematologic History: Reports: Blood Transfusion(s) Dermatologic History: Reports: Psoriasis, Other (See Below) Other Dermatologic History: on finger - Infectious Disease History Infectious Disease History: Reports: Chicken Pox, Measles, Scarlet Fever, Shingles - Past Surgical History HEENT Surgical History: Reports: Adenoidectomy, Tonsillectomy Other HEENT Surgeries/Procedures: 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 Cardiovascular Surgical History: Reports: Other (See Below) Other Cardiovascular Surgeries/Procedures: vein stripping GI Surgical History: Reports: Appendectomy Female Surgical History: Reports: Hysterectomy Musculoskeletal Surgical History: Reports: Hip Replacement, Knee Replacement, Shoulder Surgery Other Musculoskeletal Surgeries/Procedures:: right foot surgery right hip dislocation Oncologic Surgical History: Reports: Lumpectomy Social & Family History - Caffeine Use Caffeine Use: Reports: Coffee Caffeine Use Comment: 1-2 cups/day - Living Situation & Occupation Living situation: Reports: Occupation: Retired ED ROS GENERAL - Review of Systems Review Of Systems: See Below Constitutional: Reports: No Symptoms HEENT: Reports: No Symptoms Respiratory: Reports: No Symptoms Cardiovascular: Reports: No Symptoms Endocrine: Reports: No Symptoms GI/Abdominal: Reports: No Symptoms : Reports: No Symptoms Musculoskeletal: Reports: Leg Pain Skin: Reports: No Symptoms Neurological: Reports: No Symptoms Psychiatric: Reports: No Symptoms Hematologic/Lymphatic: Reports: No Symptoms Immunologic: Reports: No Symptoms ED EXAM, GENERAL - Physical Exam Exam: See Below Exam Limited By: No Limitations General Appearance: Alert, Mild Distress Eye Exam: Bilateral Eye: PERRL Ears: Normal External Exam Nose: Normal Inspection, No Blood Throat/Mouth: Normal Inspection, Normal Lips, Normal Teeth, Normal Gums, Normal Oropharynx, Normal Voice Head: Atraumatic Neck: Normal Inspection, Non-Tender, Full Range of Motion Respiratory/Chest: No Respiratory Distress, Lungs Clear, Normal Breath Sounds Cardiovascular: Normal Peripheral Pulses, No Edema, No JVD, No Murmur, Irregularly Irregular Peripheral Pulses: 3+: Posterior Tibial (L), Posterior Tibial (R), Dorsalis Pedis (L), Dorsalis Pedis (R) GI/Abdominal: Normal Bowel Sounds, Non-Tender Extremities: Normal Inspection, No Pedal Edema, Normal Capillary Refill Neurological: Alert, Oriented, Normal Reflexes, No Motor/Sensory Deficits Psychiatric: Normal Affect, Normal Mood Skin Exam: Warm, Dry, Intact Lymphatic: No Adenopathy Course - Vital Signs Last Recorded V/S: Last Vital Signs Temp 98.7 F 08/07/20 11:43 Pulse 57 L 08/07/20 12:02 Resp 16 08/07/20 12:02 BP 140/68 08/07/20 12:02 Pulse Ox 99 08/07/20 12:02 - Orders/Labs/Meds Labs: Laboratory Tests 08/07/20 Range/Units 11:32 SARS CoV-2 RNA Rapid CAROLYN Negative Meds: Medications Discontinued Medications Generic Name Dose Route Start Last Admin Trade Name Freq PRN Reason Stop Dose Admin Fentanyl 50 mcg 08/07/20 10:41 08/07/20 11:20 Sublimaze IVPUSH 50 mcg Q5M PRN Administration Pain Fentanyl Confirm 08/07/20 10:58 08/07/20 11:48 Sublimaze Administered 08/07/20 10:59 Not Given Dose 100 mcg .ROUTE .STK-MED ONE Midazolam HCl 1 mg 08/07/20 10:41 08/07/20 11:25 Versed 1 Mg/Ml IVPUSH 08/07/20 10:42 1 mg ONETIME ONE Administration Departure - Departure Time of Disposition: 12:10 Disposition: DC/Tfer to Acute Hospital 02 Condition: Good Clinical Impression: Hip dislocation, right Qualifiers: Encounter type: initial encounter Qualified Code(s): S73.004A - Unspecified dislocation of right hip, initial encounter - Discharge Information *PRESCRIPTION DRUG MONITORING PROGRAM REVIEWED*: Not Applicable *COPY OF PRESCRIPTION DRUG MONITORING REPORT IN PATIENT KARELY: Not Applicable Instructions: Hip Dislocation, [id number] Referrals: PCP,None [Primary Care Provider] - Forms: ED Department Discharge Sepsis Event Note (ED) - Evaluation Sepsis Screening Result: No Definite Risk - Assessment/Plan Plan: Attempted reduction x 2 without success after 100mcg IV fentanyl and [address] Orozco attempted x 2 without success. Called [facility] in [place], spoke with Dr. Josefa arnold, she would like th patient sent to the ED. Spoke with Dr. Flores in the ED and he is accepting. Will work on transportation [facility]
[2020-08-07 11:48] VITALS: PULSE 57
[2020-08-07 12:03] VITALS: BP 140/68
--- NOTE | 2020-08-07 12:09 | CR ---
DATE OF SERVICE: 08/07/20 CLINICAL DATA: hip pain, prosthetic, multiple dislocations RIGHT HIP: A single AP view was performed. The patient is status post right hip arthroplasty. There is dislocation of the prosthesis with lateral dislocation of the femoral component with respect to the acetabular component. [id number] MTDD
== END 2020-08-07 12:39 ==
LOC: LB.ED 09:12
DX: T84.020A Dislocation of internal right hip prosthesis, initial encounter (principal); I11.0 Hypertensive heart disease with heart failure; I50.9 Heart failure, unspecified; M19.90 Unspecified osteoarthritis, unspecified site; F32.9 Major depressive disorder, single episode, unspecified; I25.2 Old myocardial infarction; Z96.643 Presence of artificial hip joint, bilateral; Z88.2 Allergy status to sulfonamides; Z88.0 Allergy status to penicillin; Z88.1 Allergy status to other antibiotic agents; Z88.8 Allergy status to other drugs, medicaments and biological substances; Z88.5 Allergy status to narcotic agent; Z91.048 Other nonmedicinal substance allergy status; Z79.82 Long term (current) use of aspirin; Z79.899 Other long term (current) drug therapy; Z20.828 Contact with and (suspected) exposure to other viral communicable diseases
CPT/HCPCS: 27265; 73501-RT; 96374; 99285-25; A0425; A0429; J2250; J3010; U0002

== ENCOUNTER 2020-08-10 11:07 | Inpatient (IN) | payer MEDICARE ==
[~2020-08-10 11:07] MED LIST: Docusate Sodium 100 MG Cap PO PRN; LORazepam 0.5 MG Tab PO PRN; Psyllium Husk Powder Sugar Free 5.85 GM Packet PO PRN
--- NOTE | 2020-08-10 11:07 | PCM.HP.2 ---
H&P History of Present Illness - General Date of Service: 08/10/20 Source of Information: Patient, Old Records History Limitations: Reports: No Limitations - History of Present Illness Initial Comments - Free Text/Narative: This is a 85yo F here for subacute rehabilitation due to a recent dislocation of the prosthetic right hip. This is not the first dislocation. She is having difficulty with ambulation and transfers and there is no one at home to assist her at this time. She would not be safe at home. Onset of Symptoms: Reports: Sudden Duration of Symptoms: Reports: Resolved Prior to Arrival Location: Reports: Lower Extremity, Right Quality: Reports: Ache Severity: Moderate Improves with: Reports: Rest Worsens with: Reports: Movement Context: Reports: Activity/Exercise Associated Symptoms: Reports: No Other Symptoms Right Hip Pain Score (Numeric/FACES): 0 - Related Data Allergies/Adverse Reactions: Allergies Allergy/AdvReac Type Severity Reaction Status Date / Time sulfamethoxazole Allergy Unknown Rash Verified 05/05/20 08:52 [From Bactrim] trimethoprim [From Bactrim] Allergy Unknown Rash Verified 05/05/20 08:52 amoxicillin Allergy Facial Verified 05/05/20 08:52 Swelling ciprofloxacin Allergy Rash Verified 05/05/20 08:52 cortisone Allergy Itching Verified 05/05/20 08:52 hydrocodone [From [place]] Allergy Rash Verified 05/05/20 08:52 lisinopril Allergy Cough Verified 05/05/20 08:52 metronidazole [From Flagyl] Allergy Rash Verified 05/05/20 08:52 Metronidazole HCl Allergy Rash Verified 05/05/20 08:52 [From Flagyl] procaine HCl [From Novocain] Allergy Itching Verified 05/05/20 08:52 metals Allergy Itching Uncoded 05/05/20 08:52 Home Medications: Home Meds RX: Omeprazole 20 mg PO ASDIRECTED 07/05/13 [History] RX: Psyllium with Sucrose [Metamucil] 1 each PO DAILY PRN 02/01/15 [History] RX: Aspirin [Corey Chewable Aspirin] 81 mg PO DAILY 06/07/16 [History] RX: Cholecalciferol (Vitamin D3) [Vitamin D3] 2,000 unit PO DAILY 06/07/16 [History] RX: Docusate Sodium [Colace] 100 mg PO QAM 06/07/16 [History] RX: Furosemide 40 mg PO DAILY 06/20/17 [History] RX: Magnesium Oxide [Magnesium] 400 mg PO DAILY 06/20/17 [History] RX: Apixaban [Eliquis] 2.5 mg PO BID 05/24/19 [History] RX: Amiodarone [Cordarone] 200 mg PO DAILY 05/05/20 [History] RX: atorvaSTATin [Lipitor] 20 mg PO BEDTIME 05/05/20 [History] RX: Acetaminophen [Tylenol] 325 mg PO Q4H PRN tablet 05/10/20 [Rx] RX: Acidophilus/Lactobac Spor [Acidolphilus X-Strength] 1 tab PO DAILY tablet 05/10/20 [Rx] RX: LORazepam [Ativan] 0.5 mg PO BEDTIME PRN #30 tablet 05/10/20 [Rx] RX: carvediloL [Coreg] 3.125 mg PO BIDMEALS #60 tablet 05/10/20 [Rx] RX: diphenhydrAMINE [Benadryl] 25 mg PO BEDTIME PRN cap 05/10/20 [Rx] RX: Acetaminophen [Tylenol] 650 mg PO Q4H PRN tablet 08/15/20 [Rx] RX: Menthol/Zinc Oxide [Calmoseptine] 0 gm TOP QID PRN tube 08/15/20 [Rx] RX: polyethylene glycoL 3350 [MiraLAX] 17 gm PO BEDTIME PRN packet 08/15/20 [Rx] Past Medical History HEENT History: Reports: Cataract, Impaired Vision Cardiovascular History: Reports: Angina, Heart Failure, Hypertension Respiratory History: Reports: SOB, Other (See Below) Other Respiratory History: SOB when she lies flat Gastrointestinal History: Reports: GERD, Other (See Below) Other Gastrointestinal History: Reflux Genitourinary History: Reports: Other (See Below) Other Genitourinary History: history UTI 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: , Other (See Below) Other OB/BYN History: 1 girl 2 boys vag, lumpectomy Musculoskeletal History: Reports: Arthritis, Back Pain, Chronic Neurological History: Reports: Migraines Psychiatric History: Reports: Depression Endocrine/Metabolic History: Reports: Vitamin D Deficiency Hematologic History: Reports: Blood Transfusion(s) Dermatologic History: Reports: Psoriasis, Other (See Below) Other Dermatologic History: on finger - Infectious Disease History Infectious Disease History: Reports: Chicken Pox, Measles, Scarlet Fever, Shingles - Past Surgical History HEENT Surgical History: Reports: Adenoidectomy, Tonsillectomy Other HEENT Surgeries/Procedures: 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 Cardiovascular Surgical History: Reports: Other (See Below) Other Cardiovascular Surgeries/Procedures: vein stripping GI Surgical History: Reports: Appendectomy Female Surgical History: Reports: Hysterectomy Musculoskeletal Surgical History: Reports: Hip Replacement, Knee Replacement, Shoulder Surgery Other Musculoskeletal Surgeries/Procedures:: right foot surgery right hip dislocation Oncologic Surgical History: Reports: Lumpectomy Social & Family History - Caffeine Use Caffeine Use: Reports: Coffee Caffeine Use Comment: 1-2 cups/day - Living Situation & Occupation Living situation: Reports: Occupation: Retired H&P Review of Systems - Review of Systems: Review Of Systems: Comprehensive ROS is negative, except as noted in HPI. Exam - Exam Exam: See Below - Exam General: Alert, Oriented, Cooperative HEENT: PERRLA, Conjunctiva Clear, EACs Clear Neck: Supple, Trachea Midline Lungs: Clear to Auscultation, Normal Respiratory Effort Cardiovascular: Regular Rate, Regular Rhythm GI/Abdominal Exam: Normal Bowel Sounds, Soft Back Exam: Normal Inspection Extremities: Normal Inspection Peripheral Pulses: 2+: Dorsalis Pedis (L), Dorsalis Pedis (R) Neurological: Cranial Nerves Intact Neuro Extensive - Mental Status: Alert, Oriented x3, Normal Mood/Affect - Problem List (1) Generalized weakness SNOMED Code(s): 96579216 ICD Code: R53.1 - WEAKNESS Status: Acute Priority: High Current Visit: Yes (2) History of total right hip arthroplasty SNOMED Code(s): 359324272862 ICD Code: Z96.641 - PRESENCE OF RIGHT ARTIFICIAL HIP JOINT Status: Acute Priority: High Current Visit: Yes (3) Failure of right total hip arthroplasty with dislocation of hip SNOMED Code(s): 367324560, 841503092 ICD Code: T84.020A - DISLOCATION OF INTERNAL RIGHT HIP PROSTHESIS, INIT ENCNTR Status: Resolved Priority: High Current Visit: No Qualifiers: Encounter type: sequela Qualified Code(s): T84.020S - Dislocation of internal right hip prosthesis, sequela (4) CHF exacerbation SNOMED Code(s): 936773919, 36127113233981 ICD Code: I50.9 - HEART FAILURE, UNSPECIFIED Status: Acute Priority: High Current Visit: No Qualifiers: Heart failure type: combined systolic and diastolic Qualified Code(s): I50.43 - Acute on chronic combined systolic (congestive) and diastolic (congestive) heart failure Problem List Initiated/Reviewed/Updated: Yes Assessment/Plan Comment:: Admission to subacute rehabilitation for management and care. PT/OT and medication/pain management.
[2020-08-10] MEDS: Carvedilol 3.125 MG Tab PO SCH (18:02)
[2020-08-10] MEDS: atorvaSTATin 20 MG Tab PO SCH (20:49)
[2020-08-10] MEDS: diphenhydrAMINE 25 MG Cap PO PRN (20:49)
[2020-08-10] MEDS: Apixaban 5 MG Tab PO SCH (20:49)
[2020-08-10] MEDS: Acetaminophen 325 MG Tab PO PRN (20:51)
[2020-08-11] MEDS: Omeprazole 20 MG Cap.CR PO SCH (07:23)
[2020-08-11] MEDS ORDERED: Furosemide 40 MG Tab PO SCH (08:00)
[2020-08-11] MEDS: Carvedilol 3.125 MG Tab PO SCH ×2 (08:06→17:13)
[2020-08-11] MEDS: Aspirin 81 MG Tab.Chew PO SCH (08:06)
[2020-08-11] MEDS: Docusate Sodium 100 MG Cap PO SCH (08:06)
[2020-08-11] MEDS: Cholecalciferol (Vitamin D3) 2,000 Unit Cap PO SCH (08:07)
[2020-08-11] MEDS: Amiodarone 200 MG Tab PO SCH (08:07)
[2020-08-11] MEDS: Magnesium Oxide 400 MG Tab PO SCH (08:07)
[2020-08-11] MEDS: Losartan 25 MG Tab PO SCH (08:07)
[2020-08-11] MEDS: Apixaban 5 MG Tab PO SCH ×2 (08:07→19:33)
[2020-08-11] MEDS: Lactobacillus Acidophilus/Lactobacillus Sporogenes (Probiotic) Tab PO SCH (08:07)
[2020-08-11] MEDS: Acetaminophen 325 MG Tab PO PRN ×2 (08:16→23:44)
[2020-08-11] MEDS: Menthol/Zinc Oxide Ointment 113 GM Tube TOP PRN ×2 (15:58→20:54)
[2020-08-11] MEDS: atorvaSTATin 20 MG Tab PO SCH (19:33)
[2020-08-11] MEDS ORDERED: Polyethylene Glycol 3350 Powder 17 GM Packet PO PRN (20:00)
[2020-08-11] MEDS: diphenhydrAMINE 25 MG Cap PO PRN (20:54)
[2020-08-12] MEDS: Acetaminophen 325 MG Tab PO PRN ×2 (05:58→17:12)
[2020-08-12] MEDS: Losartan 25 MG Tab PO SCH (08:20)
[2020-08-12] MEDS: Aspirin 81 MG Tab.Chew PO SCH (08:20)
[2020-08-12] MEDS: Apixaban 5 MG Tab PO SCH ×2 (08:20→19:28)
[2020-08-12] MEDS: Furosemide 20 MG Tab PO SCH (08:20)
[2020-08-12] MEDS: Amiodarone 200 MG Tab PO SCH (08:21)
[2020-08-12] MEDS: Magnesium Oxide 400 MG Tab PO SCH (08:21)
[2020-08-12] MEDS: Cholecalciferol (Vitamin D3) 2,000 Unit Cap PO SCH (08:21)
[2020-08-12] MEDS: Lactobacillus Acidophilus/Lactobacillus Sporogenes (Probiotic) Tab PO SCH (08:21)
[2020-08-12] MEDS: Docusate Sodium 100 MG Cap PO SCH (08:22)
[2020-08-12] MEDS: Carvedilol 3.125 MG Tab PO SCH ×2 (08:22→17:04)
[2020-08-12] MEDS ORDERED: Tuberculin, PPD 5 Units/0.1 ML 1 ML MDV IDERM ONE (09:00)
[2020-08-12] MEDS: Menthol/Zinc Oxide Ointment 113 GM Tube TOP PRN (14:56)
[2020-08-12] MEDS: Furosemide 40 MG Tab PO PRN (14:59)
[2020-08-12] MEDS: atorvaSTATin 20 MG Tab PO SCH (19:27)
[2020-08-12] MEDS: diphenhydrAMINE 25 MG Cap PO PRN (19:28)
[2020-08-13] MEDS: Acetaminophen 325 MG Tab PO PRN ×2 (06:30→20:57)
[2020-08-13] MEDS: Omeprazole 20 MG Cap.CR PO SCH (06:31)
[2020-08-13] MEDS: Lactobacillus Acidophilus/Lactobacillus Sporogenes (Probiotic) Tab PO SCH (08:22)
[2020-08-13] MEDS: Magnesium Oxide 400 MG Tab PO SCH (08:22)
[2020-08-13] MEDS: Apixaban 5 MG Tab PO SCH ×2 (08:22→19:56)
[2020-08-13] MEDS: Docusate Sodium 100 MG Cap PO SCH (08:22)
[2020-08-13] MEDS: Cholecalciferol (Vitamin D3) 2,000 Unit Cap PO SCH (08:22)
[2020-08-13] MEDS: Aspirin 81 MG Tab.Chew PO SCH (08:23)
[2020-08-13] MEDS: Amiodarone 200 MG Tab PO SCH (08:23)
[2020-08-13] MEDS: Furosemide 20 MG Tab PO SCH (08:35)
[2020-08-13] MEDS: Carvedilol 3.125 MG Tab PO SCH ×2 (08:36→17:45)
[2020-08-13] MEDS: Losartan 25 MG Tab PO SCH (08:36)
[2020-08-13] MEDS: Furosemide 40 MG Tab PO PRN (14:21)
[2020-08-13] MEDS: diphenhydrAMINE 25 MG Cap PO PRN (19:56)
[2020-08-13] MEDS: atorvaSTATin 20 MG Tab PO SCH (19:57)
[2020-08-14] MEDS: Aspirin 81 MG Tab.Chew PO SCH (08:32)
[2020-08-14] MEDS: Apixaban 5 MG Tab PO SCH ×2 (08:32→20:33)
[2020-08-14] MEDS: Lactobacillus Acidophilus/Lactobacillus Sporogenes (Probiotic) Tab PO SCH (08:32)
[2020-08-14] MEDS: Magnesium Oxide 400 MG Tab PO SCH (08:32)
[2020-08-14] MEDS: Cholecalciferol (Vitamin D3) 2,000 Unit Cap PO SCH (08:32)
[2020-08-14] MEDS: Losartan 25 MG Tab PO SCH (08:32)
[2020-08-14] MEDS: Furosemide 20 MG Tab PO SCH (08:32)
[2020-08-14] MEDS: Docusate Sodium 100 MG Cap PO SCH (08:32)
[2020-08-14] MEDS: Acetaminophen 325 MG Tab PO PRN (08:32)
[2020-08-14] MEDS: Carvedilol 3.125 MG Tab PO SCH ×2 (08:33→17:23)
[2020-08-14] MEDS: Amiodarone 200 MG Tab PO SCH (08:33)
[2020-08-14] MEDS ORDERED: Acetaminophen 325 MG Tab PO PRN (12:41)
[2020-08-14] MEDS: Furosemide 40 MG Tab PO PRN (14:39)
--- NOTE | 2020-08-14 20:15 | PCM.PN ---
- General Info Date of Service: 08/14/20 Subjective Update: Patient stable with continued difficulty with ambulation - specifically right leg. Pain with movement. Functional Status: Reports: Tolerating Diet - Review of Systems General: Reports: Weakness HEENT: Reports: No Symptoms Pulmonary: Reports: No Symptoms Cardiovascular: Reports: No Symptoms Gastrointestinal: Reports: No Symptoms Musculoskeletal: Reports: Leg Pain Skin: Reports: No Symptoms Neurological: Reports: No Symptoms - Patient Data Vitals - Most Recent: Last Vital Signs Temp 36.6 C 08/14/20 09:58 Pulse 62 08/14/20 17:23 Resp 16 08/14/20 09:58 BP 100/55 L 08/14/20 17:23 Pulse Ox 99 08/14/20 09:58 Weight - Most Recent: 75.75 kg I&O - Last 24 Hours: Intake & Output 08/14/20 08/14/20 08/14/20 06:59 14:59 22:59 Intake Total 500 2520 Output Total 800 1000 Balance -300 1520 Med Orders - Current: Current Medications Acetaminophen (Tylenol) 650 mg PO Q4H PRN PRN Reason: Pain (moderate 4-6) Amiodarone HCl (Cordarone) 200 mg PO DAILY [facility] Last Admin: 08/14/20 08:33 Dose: 200 mg Documented by: Apixaban (Eliquis) 5 mg PO BID [facility] Last Admin: 08/14/20 08:32 Dose: 5 mg Documented by: Aspirin (Aspirin) 81 mg PO DAILY [facility] Last Admin: 08/14/20 08:32 Dose: 81 mg Documented by: Atorvastatin Calcium (Lipitor) 20 mg PO BEDTIME [facility] Last Admin: 08/13/20 19:57 Dose: 20 mg Documented by: Calamine/Phenol (Calmoseptine) 0 gm TOP QID PRN PRN Reason: Other Last Admin: 08/12/20 14:56 Dose: 1 applic Documented by: Carvedilol (Coreg) 3.125 mg PO BIDMEALS [facility] Last Admin: 08/14/20 17:23 Dose: 3.125 mg Documented by: Cholecalciferol (Vitamin D3) 2,000 unit PO DAILY [facility] Last Admin: 08/14/20 08:32 Dose: 2,000 unit Documented by: Diphenhydramine HCl (Benadryl) 25 mg PO BEDTIME PRN PRN Reason: Insomnia Last Admin: 08/13/20 19:56 Dose: 25 mg Documented by: Docusate Sodium (Colace) 100 mg PO QAM [facility] Last Admin: 08/14/20 08:32 Dose: 100 mg Documented by: Furosemide (Lasix) 20 mg PO DAILY [facility] Last Admin: 08/14/20 08:32 Dose: 40 mg Documented by: Furosemide (Lasix) 40 mg PO BID@0800,1400 PRN PRN Reason: Other Last Admin: 08/14/20 14:39 Dose: 40 mg Documented by: Lactobacillus Acidophilus (Acidolphilus Extra Strength) 1 tab PO DAILY [facility] Last Admin: 08/14/20 08:32 Dose: 1 tab Documented by: Lorazepam (Ativan) 0.5 mg PO BEDTIME PRN PRN Reason: Insomnia Losartan Potassium (Cozaar) 25 mg PO DAILY [facility] Last Admin: 08/14/20 08:32 Dose: 25 mg Documented by: Magnesium Oxide (Magnesium Oxide) 400 mg PO DAILY [facility] Last Admin: 08/14/20 08:32 Dose: 400 mg Documented by: Omeprazole (Omeprazole) 20 mg PO Q48H [facility] Last Admin: 08/13/20 06:31 Dose: 20 mg Documented by: Polyethylene Glycol (Miralax) 17 gm PO BEDTIME PRN PRN Reason: Constipation Last Admin: 08/12/20 06:03 Dose: 17 gm Documented by: Psyllium Husk (Metamucil Sugar Free) 1 pkt PO DAILY PRN PRN Reason: Constipation Discontinued Medications Acetaminophen (Tylenol) 325 mg PO Q4H PRN PRN Reason: Headache Last Admin: 08/14/20 08:32 Dose: 325 mg Documented by: Docusate Sodium (Colace) 100 mg PO QPM PRN PRN Reason: Constipation Furosemide (Lasix) 40 mg PO DAILY [facility] Last Admin: 08/11/20 08:16 Dose: 40 mg Documented by: Tuberculin PPD (Aplisol) 5 unit IDERM ONETIME ONE Stop: 08/12/20 09:01 Last Admin: 08/12/20 11:40 Dose: 5 unit Documented by: - Exam General: Alert, Oriented, Cooperative HEENT: Pupils Equal, Pupils Reactive, EOMI Neck: Supple Lungs: Clear to Auscultation, Normal Respiratory Effort Cardiovascular: Regular Rate, Regular Rhythm GI/Abdominal Exam: Normal Bowel Sounds Extremities: Normal Inspection Sepsis Event Note - Evaluation Sepsis Screening Result: No Definite Risk - Focused Exam Vital Signs: Vital Signs Temp Pulse Pulse Resp BP BP Pulse Ox 08/14/20 17:23 62 100/55 L 08/14/20 09:58 36.6 C 62 16 113/55 L 99 08/14/20 08:33 62 113/55 L 08/14/20 08:32 113/55 L - Problem List Review Problem List Initiated/Reviewed/Updated: Yes - My Orders Last 24 Hours: My Active Orders 08/14/20 12:41 Acetaminophen [TylenoL] 650 mg PO Q4H PRN - Plan Plan:: Continued PT/OT as scheduled. Improvement gradual. Consideration of home support for discharge planning.
[2020-08-14] MEDS: atorvaSTATin 20 MG Tab PO SCH (20:33)
[2020-08-14] MEDS: diphenhydrAMINE 25 MG Cap PO PRN (20:34)
[2020-08-15 07:35] VITALS: BP 123/64; PULSE 61
[2020-08-15] MEDS: Amiodarone 200 MG Tab PO SCH (07:36)
[2020-08-15] MEDS: Apixaban 5 MG Tab PO SCH (07:36)
[2020-08-15] MEDS: Magnesium Oxide 400 MG Tab PO SCH (07:36)
[2020-08-15] MEDS: Omeprazole 20 MG Cap.CR PO SCH (07:36)
[2020-08-15] MEDS: Carvedilol 3.125 MG Tab PO SCH (07:36)
[2020-08-15] MEDS: Furosemide 20 MG Tab PO SCH (07:36)
[2020-08-15] MEDS: Lactobacillus Acidophilus/Lactobacillus Sporogenes (Probiotic) Tab PO SCH (07:36)
[2020-08-15] MEDS: Cholecalciferol (Vitamin D3) 2,000 Unit Cap PO SCH (07:36)
[2020-08-15] MEDS: Aspirin 81 MG Tab.Chew PO SCH (07:36)
[2020-08-15] MEDS: Docusate Sodium 100 MG Cap PO SCH (07:36)
--- NOTE | 2020-08-15 11:00 | PCM.DCSUM1 ---
Discharge Summary - Discharge Data Discharge Date: 08/15/20 Discharge Disposition: Home, Self-Care 01 Condition: Good - Referral to Home Health Primary Care Physician: PCP None - Patient Summary/Data Consults: Consultations 08/10/20 11:07 Consult to Home Health [CONS] Routine Comment: Physician Instructions: OT Evaluation and Treatment [CONS] Routine Please Evaluate and Treat. OT Reason for Consult: ADL's This query below is only for informational purposes and is not editable. Admission Diagnosis/Problem: Weakness PT Evaluation and Treatment [CONS] Routine Please Evaluate and Treat. PT Reason for Consult: Ambulation This query below is only for informational purposes and is not editable. Admission Diagnosis/Problem: Weakness - Patient Instructions Diet: Usual Diet as Tolerated Activity: As Tolerated Driving: Do Not Drive Showering/Bathing: May Shower Notify Provider of: Increased Pain, Swelling and Redness - Discharge Plan Home Medications: Home Meds RX: Omeprazole 20 mg PO ASDIRECTED 07/05/13 [History] RX: Psyllium with Sucrose [Metamucil] 1 each PO DAILY PRN 02/01/15 [History] RX: Aspirin [Corey Chewable Aspirin] 81 mg PO DAILY 06/07/16 [History] RX: Cholecalciferol (Vitamin D3) [Vitamin D3] 2,000 unit PO DAILY 06/07/16 [History] RX: Docusate Sodium [Colace] 100 mg PO QAM 06/07/16 [History] RX: Furosemide 40 mg PO DAILY 06/20/17 [History] RX: Magnesium Oxide [Magnesium] 400 mg PO DAILY 06/20/17 [History] RX: Apixaban [Eliquis] 2.5 mg PO BID 05/24/19 [History] RX: Amiodarone [Cordarone] 200 mg PO DAILY 05/05/20 [History] RX: atorvaSTATin [Lipitor] 20 mg PO BEDTIME 05/05/20 [History] RX: Acetaminophen [Tylenol] 325 mg PO Q4H PRN tablet 05/10/20 [Rx] RX: Acidophilus/Lactobac Spor [Acidolphilus X-Strength] 1 tab PO DAILY tablet 05/10/20 [Rx] RX: LORazepam [Ativan] 0.5 mg PO BEDTIME PRN #30 tablet 05/10/20 [Rx] RX: carvediloL [Coreg] 3.125 mg PO BIDMEALS #60 tablet 05/10/20 [Rx] RX: diphenhydrAMINE [Benadryl] 25 mg PO BEDTIME PRN cap 05/10/20 [Rx] RX: Acetaminophen [Tylenol] 650 mg PO Q4H PRN tablet 08/15/20 [Rx] RX: Menthol/Zinc Oxide [Calmoseptine] 0 gm TOP QID PRN tube 08/15/20 [Rx] RX: polyethylene glycoL 3350 [MiraLAX] 17 gm PO BEDTIME PRN packet 08/15/20 [Rx] - Discharge Summary/Plan Comment DC Time >30 min.: No Discharge Summary/Plan Comment: Patient discharged home in care of Son. D/C Losartan. Lasix 40mg daily only. Resume all other meds as directed. Fu in clinic the next week for recheck BP and concerns. Continue PT/OT as prescribed. - General Info Date of Service: 08/15/20 Functional Status: Reports: Pain Controlled, Tolerating Diet, Ambulating - Review of Systems General: Reports: Weakness HEENT: Reports: No Symptoms Pulmonary: Reports: No Symptoms Cardiovascular: Reports: No Symptoms Gastrointestinal: Reports: No Symptoms Genitourinary: Reports: No Symptoms Musculoskeletal: Reports: Other (right hip pain) Skin: Reports: No Symptoms Neurological: Reports: No Symptoms Psychiatric: Reports: No Symptoms - Patient Data Vitals - Most Recent: Last Vital Signs Temp 36.7 C 08/15/20 07:34 Pulse 61 08/15/20 07:36 Resp 16 08/15/20 07:34 BP 123/64 08/15/20 07:36 Pulse Ox 100 08/15/20 07:34 Weight - Most Recent: 75.659 kg I&O - Last 24 hours: Intake & Output 08/14/20 08/15/20 08/15/20 22:59 06:59 14:59 Intake Total 2520 180 Output Total 1000 800 Balance 1520 -620 Med Orders - Current: Current Medications Acetaminophen (Tylenol) 650 mg PO Q4H PRN PRN Reason: Pain (moderate 4-6) Amiodarone HCl (Cordarone) 200 mg PO DAILY [facility] Last Admin: 08/15/20 07:36 Dose: 200 mg Documented by: Apixaban (Eliquis) 5 mg PO BID [facility] Last Admin: 08/15/20 07:36 Dose: 5 mg Documented by: Aspirin (Aspirin) 81 mg PO DAILY [facility] Last Admin: 08/15/20 07:36 Dose: 81 mg Documented by: Atorvastatin Calcium (Lipitor) 20 mg PO BEDTIME [facility] Last Admin: 08/14/20 20:33 Dose: 20 mg Documented by: Calamine/Phenol (Calmoseptine) 0 gm TOP QID PRN PRN Reason: Other Last Admin: 08/12/20 14:56 Dose: 1 applic Documented by: Carvedilol (Coreg) 3.125 mg PO BIDMEALS [facility] Last Admin: 08/15/20 07:36 Dose: 3.125 mg Documented by: Cholecalciferol (Vitamin D3) 2,000 unit PO DAILY [facility] Last Admin: 08/15/20 07:36 Dose: 2,000 unit Documented by: Diphenhydramine HCl (Benadryl) 25 mg PO BEDTIME PRN PRN Reason: Insomnia Last Admin: 08/14/20 20:34 Dose: 25 mg Documented by: Docusate Sodium (Colace) 100 mg PO QAM [facility] Last Admin: 08/15/20 07:36 Dose: 100 mg Documented by: Furosemide (Lasix) 20 mg PO DAILY [facility] Last Admin: 08/15/20 07:36 Dose: 40 mg Documented by: Furosemide (Lasix) 40 mg PO BID@0800,1400 PRN PRN Reason: Other Last Admin: 08/14/20 14:39 Dose: 40 mg Documented by: Lactobacillus Acidophilus (Acidolphilus Extra Strength) 1 tab PO DAILY [facility] Last Admin: 08/15/20 07:36 Dose: 1 tab Documented by: Lorazepam (Ativan) 0.5 mg PO BEDTIME PRN PRN Reason: Insomnia Last Admin: 08/14/20 20:33 Dose: 0.5 mg Documented by: Losartan Potassium (Cozaar) 25 mg PO DAILY [facility] Last Admin: 08/14/20 08:32 Dose: 25 mg Documented by: Magnesium Oxide (Magnesium Oxide) 400 mg PO DAILY [facility] Last Admin: 08/15/20 07:36 Dose: 400 mg Documented by: Omeprazole (Omeprazole) 20 mg PO Q48H [facility] Last Admin: 08/15/20 07:36 Dose: 20 mg Documented by: Polyethylene Glycol (Miralax) 17 gm PO BEDTIME PRN PRN Reason: Constipation Last Admin: 08/12/20 06:03 Dose: 17 gm Documented by: Psyllium Husk (Metamucil Sugar Free) 1 pkt PO DAILY PRN PRN Reason: Constipation Discontinued Medications Acetaminophen (Tylenol) 325 mg PO Q4H PRN PRN Reason: Headache Last Admin: 08/14/20 08:32 Dose: 325 mg Documented by: Docusate Sodium (Colace) 100 mg PO QPM PRN PRN Reason: Constipation Furosemide (Lasix) 40 mg PO DAILY [facility] Last Admin: 08/11/20 08:16 Dose: 40 mg Documented by: Tuberculin PPD (Aplisol) 5 unit IDERM ONETIME ONE Stop: 08/12/20 09:01 Last Admin: 08/12/20 11:40 Dose: 5 unit Documented by: - Exam General: Reports: Alert, Oriented, Cooperative HEENT: Reports: Pupils Equal, Pupils Reactive, EOMI Neck: Reports: Supple Lungs: Reports: Clear to Auscultation, Normal Respiratory Effort Cardiovascular: Reports: Regular Rate, Regular Rhythm GI/Abdominal Exam: Normal Bowel Sounds Back Exam: Reports: Normal Inspection Extremities: Normal Inspection Skin: Reports: Warm, Dry, Intact Neurological: Reports: No New Focal Deficit Psy/Mental Status: Reports: Alert, Normal Affect, Normal Mood
== END 2020-08-15 11:30 | disposition home or self-care (01) | DRG 560 ==
LOC: LB.MS 14:45
PROVIDERS: ADMIT Family Medicine; ATTEND Family Medicine
DX: Z47.1 Aftercare following joint replacement surgery (principal); I50.42 Chronic combined systolic (congestive) and diastolic (congestive) heart failure; T84.02 Dislocation of internal joint prosthesis; Z96.641 Presence of right artificial hip joint; R53.1 Weakness; I11.0 Hypertensive heart disease with heart failure; H54.7 Unspecified visual loss; K21.9 Gastro-esophageal reflux disease without esophagitis; M19.90 Unspecified osteoarthritis, unspecified site; M54.9 Dorsalgia, unspecified; G89.29 Other chronic pain; F32.9 Major depressive disorder, single episode, unspecified; E55.9 Vitamin D deficiency, unspecified; Z88.2 Allergy status to sulfonamides; Z88.0 Allergy status to penicillin; Z88.1 Allergy status to other antibiotic agents; Z88.5 Allergy status to narcotic agent; Z88.8 Allergy status to other drugs, medicaments and biological substances; Z79.82 Long term (current) use of aspirin; Z79.899 Other long term (current) drug therapy; Z90.710 Acquired absence of both cervix and uterus; Z98.890 Other specified postprocedural states
CPT/HCPCS: 86580; 97110-GP; 97116-GP; 97161-GP; 97165-GO; 97530-GO; 97530-GP; 97535-GO; 99304; 99307; 99315; A9270-GY

== ENCOUNTER 2020-09-18 09:17 | Emergency (ER) | payer MEDICARE ==
[2020-09-18] MEDS ORDERED: Aspirin 81 MG Tab.Chew PO ONE (10:38)
--- NOTE | 2020-09-18 11:05 | EDM.PDOC ---
ED HPI GENERAL MEDICAL PROBLEM - General Chief Complaint: General Stated Complaint: HEART TROUBLE Time Seen by Provider: 09/18/20 10:00 Source of Information: Reports: EMS History Limitations: Reports: No Limitations - History of Present Illness INITIAL COMMENTS - FREE TEXT/NARRATIVE: 85 years old female known patient of of CAD & Afib came to ED by EMS for palpitation for last 3 days ,sudden in onset & getting worse .The patient also reports shortness of breath & weakness. The patient denies fever,N/V ,chest pain ,headache ,blurry vision & dizziness Onset: Today, Gradual Onset Date: 09/14/20 Onset Time: 02:00 Duration: Day(s): (3), Recurring - Related Data Allergies Allergy/AdvReac Type Severity Reaction Status Date / Time sulfamethoxazole Allergy Unknown Rash Verified 09/18/20 09:34 [From Bactrim] trimethoprim [From Bactrim] Allergy Unknown Rash Verified 09/18/20 09:34 amoxicillin Allergy Facial Verified 09/18/20 09:34 Swelling ciprofloxacin Allergy Rash Verified 09/18/20 09:34 cortisone Allergy Itching Verified 09/18/20 09:34 hydrocodone [From [place]] Allergy Rash Verified 09/18/20 09:34 lisinopril Allergy Cough Verified 09/18/20 09:34 metronidazole [From Flagyl] Allergy Rash Verified 09/18/20 09:34 Metronidazole HCl Allergy Rash Verified 09/18/20 09:34 [From Flagyl] procaine HCl [From Novocain] Allergy Itching Verified 09/18/20 09:34 metals Allergy Itching Uncoded 09/18/20 09:34 Home Meds: Home Meds Omeprazole 20 mg PO ASDIRECTED 07/05/13 [History] Psyllium with Sucrose [Metamucil] 1 each PO DAILY PRN 02/01/15 [History] Aspirin [Corey Chewable Aspirin] 81 mg PO DAILY 06/07/16 [History] Cholecalciferol (Vitamin D3) [Vitamin D3] 2,000 unit PO DAILY 06/07/16 [History] Docusate Sodium [Colace] 100 mg PO QAM 06/07/16 [History] Furosemide 40 mg PO DAILY 06/20/17 [History] Magnesium Oxide [Magnesium] 400 mg PO DAILY 06/20/17 [History] Apixaban [Eliquis] 2.5 mg PO BID 05/24/19 [History] Amiodarone [Cordarone] 200 mg PO DAILY 05/05/20 [History] atorvaSTATin [Lipitor] 20 mg PO BEDTIME 05/05/20 [History] Acetaminophen [Tylenol] 325 mg PO Q4H PRN tablet 05/10/20 [Rx] Acidophilus/Lactobac Spor [Acidolphilus X-Strength] 1 tab PO DAILY tablet 05/10/20 [Rx] LORazepam [Ativan] 0.5 mg PO BEDTIME PRN #30 tablet 05/10/20 [Rx] carvediloL [Coreg] 3.125 mg PO BIDMEALS #60 tablet 05/10/20 [Rx] diphenhydrAMINE [Benadryl] 25 mg PO BEDTIME PRN cap 05/10/20 [Rx] Acetaminophen [Tylenol] 650 mg PO Q4H PRN tablet 08/15/20 [Rx] Menthol/Zinc Oxide [Calmoseptine] 0 gm TOP QID PRN tube 08/15/20 [Rx] polyethylene glycoL 3350 [MiraLAX] 17 gm PO BEDTIME PRN packet 08/15/20 [Rx] Losartan [Cozaar] 25 mg PO DAILY 09/18/20 [History] Past Medical History HEENT History: Reports: Cataract, Impaired Vision Cardiovascular History: Reports: Angina, CAD, Heart Failure, High Cholesterol, Hypertension Respiratory History: Reports: SOB, Other (See Below) Other Respiratory History: SOB when she lies flat Gastrointestinal History: Reports: GERD, Other (See Below) Other Gastrointestinal History: Reflux Genitourinary History: Reports: Other (See Below) Other Genitourinary History: history UTI ROLL OPERATOR 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: Reports: , Other (See Below) Other ROLL OPERATOR History: 1 girl 2 boys vag, lumpectomy Musculoskeletal History: Reports: Arthritis, Back Pain, Chronic, Osteoarthritis Neurological History: Reports: Migraines Psychiatric History: Reports: Depression Endocrine/Metabolic History: Reports: Hypothyroidism Hematologic History: Reports: Blood Transfusion(s) Dermatologic History: Reports: Psoriasis, Other (See Below) Other Dermatologic History: on finger - Infectious Disease History Infectious Disease History: Reports: Chicken Pox, Measles, Scarlet Fever, Shingles - Past Surgical History HEENT Surgical History: Reports: Adenoidectomy, Tonsillectomy Other HEENT Surgeries/Procedures: 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 Cardiovascular Surgical History: Reports: Other (See Below) Other Cardiovascular Surgeries/Procedures: vein stripping GI Surgical History: Reports: Appendectomy Female Surgical History: Reports: Hysterectomy Musculoskeletal Surgical History: Reports: Hip Replacement, Knee Replacement, Shoulder Surgery Other Musculoskeletal Surgeries/Procedures:: right foot surgery right hip dislocation Oncologic Surgical History: Reports: Lumpectomy Social & Family History - Tobacco Use Tobacco Use Status *Q: Never Tobacco User Second Hand Smoke Exposure: No - Caffeine Use Caffeine Use: Reports: Coffee Caffeine Use Comment: 1-2 cups/day - Recreational Drug Use Recreational Drug Use: No - Living Situation & Occupation Living situation: Reports: Occupation: Retired ED ROS GENERAL - Review of Systems Review Of Systems: See Below Constitutional: Reports: Weakness HEENT: Reports: No Symptoms Respiratory: Reports: Shortness of Breath Cardiovascular: Reports: Other (palpitation ) ED EXAM, GENERAL - Physical Exam Exam: See Below Exam Limited By: No Limitations General Appearance: Alert, WD/WN, No Apparent Distress Head: Atraumatic, Normocephalic Neck: Normal Inspection Respiratory/Chest: No Respiratory Distress, Lungs Clear, Normal Breath Sounds, Chest Non-Tender Cardiovascular: Normal Peripheral Pulses GI/Abdominal: Normal Bowel Sounds Neurological: Alert, Oriented, CN II-XII Intact Course - Vital Signs Text/Narrative:: vitals monitored labs ordered 3 baby aspirin given EKG done that shows ST depression & T wave abnormality Troponin was elevated BMP was elevated I spoke with dr Livia Spencer at [facility] & he recommended to send her for NON-stemi evaluation- He advised for hospital admission with cardiology Consult- I spoke with DR Moreno & he agreed to accept the patient . Arrangement for ground transportation done - The patient was transferred t [facility] Last Recorded V/S: Last Vital Signs Temp 97.9 F 09/18/20 11:48 Pulse 109 H 09/18/20 12:02 Resp 20 09/18/20 11:48 BP 113/70 09/18/20 12:02 Pulse Ox 100 09/18/20 11:48 - Orders/Labs/Meds Orders: Active Orders 24 hr Category Date Time Status CULTURE URINE [RM] Stat Lab 09/18/20 11:21 Received Labs: Laboratory Tests 09/18/20 09/18/20 09/18/20 Range/Units 10:01 10:10 10:10 WBC 3.7 L D (4.0-11.0) K/uL RBC 3.71 L (3.80-5.80) M/uL Hgb 10.9 L (11.5-16.5) g/dL Hct 34.5 L (37.0-47.0) % MCV 93 (76-96) fL MCH 29.4 (27.0-32.0) pg MCHC 31.6 (31.0-35.0) g/dL RDW 15.4 (11.0-16.0) % Plt Count 182 (150-500) K/uL MPV 10.9 H (6.0-10.0) fL Neut % (Auto) 65.9 (45.0-70.0) % Lymph % (Auto) 15.0 L (20.0-40.0) % Love % (Auto) 11.2 H (3.0-10.0) % Eos % (Auto) 7.4 H (1.0-5.0) % Baso % (Auto) 0.5 (0.0-0.5) % Neut # (Auto) 2.41 (2.00-7.50) K/uL Lymph # (Auto) 0.55 L (1.50-4.00) K/uL Love # (Auto) 0.41 (0.20-0.80) K/uL Eos # (Auto) 0.27 (0.04-0.40) K/uL Baso # (Auto) 0.02 (0.02-0.10) K/uL D-Dimer, Quantitative (0-400) ng/mL Sodium 143 (136-145) mmol/L Potassium 4.7 (3.5-5.1) mmol/L Chloride 106 (98-107) mmol/L Carbon Dioxide 31.3 (21.0-32.0) mmol/L Anion Gap 10.4 (5.0-15.0) mmol/L BUN 28 H (8-26) mg/dL Creatinine 1.55 H (0.55-1.02) mg/dL Est Cr Clr Drug Dosing 27.74 mL/min Estimated GFR (MDRD) 32 L (>60) MLS/MIN BUN/Creatinine Ratio 18.1 (6-25) Glucose 78 (74-100) mg/dL Calcium 8.6 (8.5-10.1) mg/dL Magnesium 2.3 (1.8-2.4) mg/dL Total Bilirubin 1.0 (0.0-1.0) mg/dL AST 27 (15-37) U/L ALT 29 (12-78) U/L Alkaline Phosphatase 81 (46-116) U/L Troponin I 0.902 H* (0.000-0.060) ng/mL B-Natriuretic Peptide (0-450) pg/mL Total Protein 6.2 L (6.4-8.2) g/dL Albumin 3.4 (3.4-5.0) g/dL Globulin 2.8 (2.2-4.2) g/dL Albumin/Globulin Ratio 1.2 (0.8-2.0) TSH, Ultra Sensitive (0.358-3.740) uIU/mL Urine Color Urine Appearance (CLEAR) Urine pH (5.0-8.0) Ur Specific Leon (1.003-1.030) Urine Protein (NEGATIVE) mg/dL Urine Glucose (UA) (NEGATIVE) mg/dL Urine Ketones (NEGATIVE) mg/dL Urine Occult Blood (NEGATIVE) Urine Nitrite (NEGATIVE) Urine Bilirubin (NEGATIVE) Urine Urobilinogen (0.2-1.0) E.U./dL Ur Leukocyte Esterase (NEGATIVE) U Hyaline Cast (Auto) /HPF Urine RBC /HPF Urine WBC /HPF Ur Epithelial Cells /HPF Urine Bacteria /HPF 09/18/20 09/18/20 09/18/20 Range/Units 10:10 10:45 10:46 WBC (4.0-11.0) K/uL RBC (3.80-5.80) M/uL Hgb (11.5-16.5) g/dL Hct (37.0-47.0) % MCV (76-96) fL MCH (27.0-32.0) pg MCHC (31.0-35.0) g/dL RDW (11.0-16.0) % Plt Count (150-500) K/uL MPV (6.0-10.0) fL Neut % (Auto) (45.0-70.0) % Lymph % (Auto) (20.0-40.0) % Love % (Auto) (3.0-10.0) % Eos % (Auto) (1.0-5.0) % Baso % (Auto) (0.0-0.5) % Neut # (Auto) (2.00-7.50) K/uL Lymph # (Auto) (1.50-4.00) K/uL Love # (Auto) (0.20-0.80) K/uL Eos # (Auto) (0.04-0.40) K/uL Baso # (Auto) (0.02-0.10) K/uL D-Dimer, Quantitative 130 (0-400) ng/mL Sodium (136-145) mmol/L Potassium (3.5-5.1) mmol/L Chloride (98-107) mmol/L Carbon Dioxide (21.0-32.0) mmol/L Anion Gap (5.0-15.0) mmol/L BUN (8-26) mg/dL Creatinine (0.55-1.02) mg/dL Est Cr Clr Drug Dosing mL/min Estimated GFR (MDRD) (>60) MLS/MIN BUN/Creatinine Ratio (6-25) Glucose (74-100) mg/dL Calcium (8.5-10.1) mg/dL Magnesium (1.8-2.4) mg/dL Total Bilirubin (0.0-1.0) mg/dL AST (15-37) U/L ALT (12-78) U/L Alkaline Phosphatase (46-116) U/L Troponin I (0.000-0.060) ng/mL B-Natriuretic Peptide 8815 H D (0-450) pg/mL Total Protein (6.4-8.2) g/dL Albumin (3.4-5.0) g/dL Globulin (2.2-4.2) g/dL Albumin/Globulin Ratio (0.8-2.0) TSH, Ultra Sensitive 5.250 H (0.358-3.740) uIU/mL Urine Color Urine Appearance (CLEAR) Urine pH (5.0-8.0) Ur Specific Leon (1.003-1.030) Urine Protein (NEGATIVE) mg/dL Urine Glucose (UA) (NEGATIVE) mg/dL Urine Ketones (NEGATIVE) mg/dL Urine Occult Blood (NEGATIVE) Urine Nitrite (NEGATIVE) Urine Bilirubin (NEGATIVE) Urine Urobilinogen (0.2-1.0) E.U./dL Ur Leukocyte Esterase (NEGATIVE) U Hyaline Cast (Auto) /HPF Urine RBC /HPF Urine WBC /HPF Ur Epithelial Cells /HPF Urine Bacteria /HPF 09/18/20 09/18/20 Range/Units 11:21 12:35 WBC (4.0-11.0) K/uL RBC (3.80-5.80) M/uL Hgb (11.5-16.5) g/dL Hct (37.0-47.0) % MCV (76-96) fL MCH (27.0-32.0) pg MCHC (31.0-35.0) g/dL RDW (11.0-16.0) % Plt Count (150-500) K/uL MPV (6.0-10.0) fL Neut % (Auto) (45.0-70.0) % Lymph % (Auto) (20.0-40.0) % Love % (Auto) (3.0-10.0) % Eos % (Auto) (1.0-5.0) % Baso % (Auto) (0.0-0.5) % Neut # (Auto) (2.00-7.50) K/uL Lymph # (Auto) (1.50-4.00) K/uL Love # (Auto) (0.20-0.80) K/uL Eos # (Auto) (0.04-0.40) K/uL Baso # (Auto) (0.02-0.10) K/uL D-Dimer, Quantitative (0-400) ng/mL Sodium (136-145) mmol/L Potassium (3.5-5.1) mmol/L Chloride (98-107) mmol/L Carbon Dioxide (21.0-32.0) mmol/L Anion Gap (5.0-15.0) mmol/L BUN (8-26) mg/dL Creatinine (0.55-1.02) mg/dL Est Cr Clr Drug Dosing mL/min Estimated GFR (MDRD) (>60) MLS/MIN BUN/Creatinine Ratio (6-25) Glucose (74-100) mg/dL Calcium (8.5-10.1) mg/dL Magnesium (1.8-2.4) mg/dL Total Bilirubin (0.0-1.0) mg/dL AST (15-37) U/L ALT (12-78) U/L Alkaline Phosphatase (46-116) U/L Troponin I 0.943 H* (0.000-0.060) ng/mL B-Natriuretic Peptide (0-450) pg/mL Total Protein (6.4-8.2) g/dL Albumin (3.4-5.0) g/dL Globulin (2.2-4.2) g/dL Albumin/Globulin Ratio (0.8-2.0) TSH, Ultra Sensitive (0.358-3.740) uIU/mL Urine Color Yellow Urine Appearance Clear (CLEAR) Urine pH 7.0 (5.0-8.0) Ur Specific Leon 1.025 (1.003-1.030) Urine Protein Negative (NEGATIVE) mg/dL Urine Glucose (UA) Negative (NEGATIVE) mg/dL Urine Ketones Negative (NEGATIVE) mg/dL Urine Occult Blood Trace-intact H (NEGATIVE) Urine Nitrite Negative (NEGATIVE) Urine Bilirubin Negative (NEGATIVE) Urine Urobilinogen 0.2 (0.2-1.0) E.U./dL Ur Leukocyte Esterase Trace H (NEGATIVE) U Hyaline Cast (Auto) Few /HPF Urine RBC 0-5 H /HPF Urine WBC 0-5 H /HPF Ur Epithelial Cells Few /HPF Urine Bacteria Few /HPF Meds: Medications Discontinued Medications Generic Name Dose Route Start Last Admin Trade Name Kristen PRN Reason Stop Dose Admin Aspirin 81 mg 09/18/20 10:38 09/18/20 10:44 Aspirin PO 09/18/20 10:39 243 mg ONETIME ONE Administration Departure - Departure Time of Disposition: 13:00 Disposition: DC/Tfer to Hospice-Med Fac 51 Condition: Fair Clinical Impression: SC, Myocardial infarction, CHF, Congestive heart failure, Postmenopause atrophic vaginitis, Generalized weakness, Shortness of breath, Ischemia - Discharge Information Instructions: Shortness of Breath, Adult, [id number], Heart Failure, Self Care, [id number] Referrals: PCP,None [Primary Care Provider] - Forms: ED Department Discharge Sepsis Event Note (ED) - Evaluation Sepsis Screening Result: No Definite Risk - Focused Exam Vital Signs: Vital Signs Temp Pulse Resp BP Pulse Ox 09/18/20 12:02 109 H 113/70 09/18/20 11:48 97.9 F 109 H 20 106/64 100 09/18/20 10:51 98 F 101 H 20 98/65 96 09/18/20 09:31 97.3 F 112 H 20 100/63 - Problem List & Annotations (1) Non-ST elevated myocardial infarction (non-STEMI) SNOMED Code(s): 08479117 Code(s): I21.4 - NON-ST ELEVATION (NSTEMI) MYOCARDIAL INFARCTION Status: Acute Priority: Medium Onset Date: ~09/18/20 Annotation/Comment:: transfer to [facility] (2) SOB (shortness of breath) SNOMED Code(s): 624930391 Code(s): R06.02 - SHORTNESS OF BREATH Status: Acute Onset Date: ~09/18/20 Annotation/Comment:: transfered & discharge to [facility] (3) Non-STEMI (non-ST elevated myocardial infarction) SNOMED Code(s): 92326778 Code(s): I21.4 - NON-ST ELEVATION (NSTEMI) MYOCARDIAL INFARCTION Status: Acute Priority: Medium - My Orders Last 24 Hours: My Active Orders 09/18/20 11:21 CULTURE URINE [RM] Stat - Assessment/Plan Last 24 Hours: My Active Orders 09/18/20 11:21 CULTURE URINE [RM] Stat
[2020-09-18 11:51] VITALS: PULSE 109
[2020-09-18 12:02] VITALS: BP 113/70
--- NOTE | 2020-09-18 13:22 | CR ---
Date of Service: 09/18/20 Clinical Data: dyspnea AP CHEST: Comparison is made to a prior exam dated 05/05/20. The remains enlarged, unchanged. There is calcification of the aortic arch. The pulmonary vasculature appears prominent suggesting pulmonary venous congestion or fluid overload. There is a linear density in the left lower lung consistent with linear atelectasis or fibrosis. There are subtle ground glass opacities in the right lower lung and right midlung. Viral pneumonia should be considered. There is slight blunting of the right costophrenic angle consistent with a very small right pleural effusion or pleural scar. No other significant findings. No pneumothorax. [id number] [facility]
== END 2020-09-18 13:06 | disposition hospice, inpatient (51) ==
LOC: LB.ED 09:17
DX: I21.9 Acute myocardial infarction, unspecified (principal); I11.0 Hypertensive heart disease with heart failure; I50.9 Heart failure, unspecified; N95.2 Postmenopausal atrophic vaginitis; I99.8 Other disorder of circulatory system; I25.10 Atherosclerotic heart disease of native coronary artery without angina pectoris; E78.00 Pure hypercholesterolemia, unspecified; M19.90 Unspecified osteoarthritis, unspecified site; Z88.2 Allergy status to sulfonamides; Z88.1 Allergy status to other antibiotic agents; Z88.0 Allergy status to penicillin; Z88.8 Allergy status to other drugs, medicaments and biological substances; Z88.5 Allergy status to narcotic agent; Z91.048 Other nonmedicinal substance allergy status; Z79.82 Long term (current) use of aspirin; Z79.01 Long term (current) use of anticoagulants; Z79.899 Other long term (current) drug therapy
CPT/HCPCS: 36415; 71045; 80053; 81001; 83735; 83880; 84443; 84484; 85025; 85379; 87086; 93005; 99285; 99285-25; A9270-GY

== ENCOUNTER 2020-11-30 09:05 | Emergency (ER) | payer MEDICARE ==
--- NOTE | 2020-11-30 10:02 | EDM.PDOC ---
ED HPI GENERAL MEDICAL PROBLEM - General Chief Complaint: General Stated Complaint: FELL AT HOME / INJURED RIBS Time Seen by Provider: 11/30/20 09:52 Source of Information: Reports: Patient, Family History Limitations: Reports: No Limitations - History of Present Illness INITIAL COMMENTS - FREE TEXT/NARRATIVE: Ms. De Oliveira is a 85 YOF who came in with her after falling on her Rt side yesterday. Today she has upper Rt rib pain that wraps to the back. No bruising noted. She has not taken anything for the pain. No SOB or LOC. Lungs are CTA. Normal HRR. She did not hit her head when she fell. She has Hx of CHF, HTN, GERD and chronic migraines. Onset: Other (Patient fell last night) Duration: Hour(s):, Constant (Rt sided upper rib pain) Location: Reports: Chest Quality: Reports: Ache, Dull Severity: Moderate Improves with: Reports: None Worsens with: Reports: None Context: Reports: Trauma (Fall) Right Chest Pain Score (Numeric/FACES): 9 - Related Data Allergies Allergy/AdvReac Type Severity Reaction Status Date / Time sulfamethoxazole Allergy Unknown Rash Verified 09/18/20 09:34 [From Bactrim] trimethoprim [From Bactrim] Allergy Unknown Rash Verified 09/18/20 09:34 amoxicillin Allergy Facial Verified 09/18/20 09:34 Swelling ciprofloxacin Allergy Rash Verified 09/18/20 09:34 cortisone Allergy Itching Verified 09/18/20 09:34 hydrocodone [From [place]] Allergy Rash Verified 09/18/20 09:34 latex Allergy Rash Verified 11/30/20 10:32 lisinopril Allergy Cough Verified 09/18/20 09:34 metronidazole [From Flagyl] Allergy Rash Verified 09/18/20 09:34 Metronidazole HCl Allergy Rash Verified 09/18/20 09:34 [From Flagyl] procaine HCl [From Novocain] Allergy Itching Verified 09/18/20 09:34 metals Allergy Itching Uncoded 09/18/20 09:34 Home Meds: Home Meds Omeprazole 20 mg PO ASDIRECTED 07/05/13 [History] Psyllium with Sucrose [Metamucil] 1 each PO DAILY PRN 02/01/15 [History] Aspirin [Corey Chewable Aspirin] 81 mg PO DAILY 06/07/16 [History] Cholecalciferol (Vitamin D3) [Vitamin D3] 2,000 unit PO DAILY 06/07/16 [History] Docusate Sodium [Colace] 100 mg PO QAM 06/07/16 [History] Furosemide 40 mg PO DAILY 06/20/17 [History] Magnesium Oxide [Magnesium] 400 mg PO DAILY 06/20/17 [History] Apixaban [Eliquis] 2.5 mg PO BID 05/24/19 [History] Amiodarone [Cordarone] 200 mg PO DAILY 05/05/20 [History] atorvaSTATin [Lipitor] 20 mg PO BEDTIME 05/05/20 [History] Acetaminophen [Tylenol] 325 mg PO Q4H PRN tablet 05/10/20 [Rx] Acidophilus/Lactobac Spor [Acidolphilus X-Strength] 1 tab PO DAILY tablet 05/10/20 [Rx] LORazepam [Ativan] 0.5 mg PO BEDTIME PRN #30 tablet 05/10/20 [Rx] carvediloL [Coreg] 3.125 mg PO BIDMEALS #60 tablet 05/10/20 [Rx] diphenhydrAMINE [Benadryl] 25 mg PO BEDTIME PRN cap 05/10/20 [Rx] Acetaminophen [Tylenol] 650 mg PO Q4H PRN tablet 08/15/20 [Rx] Menthol/Zinc Oxide [Calmoseptine] 0 gm TOP QID PRN tube 08/15/20 [Rx] polyethylene glycoL 3350 [MiraLAX] 17 gm PO BEDTIME PRN packet 08/15/20 [Rx] Losartan [Cozaar] 25 mg PO DAILY 09/18/20 [History] Past Medical History HEENT History: Reports: Cataract, Impaired Vision Cardiovascular History: Reports: Angina, CAD, Heart Failure, High Cholesterol, Hypertension Respiratory History: Reports: SOB, Other (See Below) Other Respiratory History: SOB when she lies flat Gastrointestinal History: Reports: GERD, Other (See Below) Other Gastrointestinal History: Reflux Genitourinary History: Reports: Other (See Below) Other Genitourinary History: history UTI 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: , 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 (See Below) 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 ROD 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 History: 1 girl 2 boys vag, lumpectomy Musculoskeletal History: Reports: Arthritis, Back Pain, Chronic, Osteoarthritis Neurological History: Reports: Migraines Psychiatric History: Reports: Depression Endocrine/Metabolic History: Reports: Hypothyroidism Hematologic History: Reports: Blood Transfusion(s) Dermatologic History: Reports: Psoriasis, Other (See Below) Other Dermatologic History: on finger - Infectious Disease History Infectious Disease History: Reports: Chicken Pox, Measles, Scarlet Fever, Shingles - Past Surgical History HEENT Surgical History: Reports: Adenoidectomy, Tonsillectomy Other HEENT Surgeries/Procedures: 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 Cardiovascular Surgical History: Reports: Other (See Below) Other Cardiovascular Surgeries/Procedures: vein stripping GI Surgical History: Reports: Appendectomy Female Surgical History: Reports: Hysterectomy Musculoskeletal Surgical History: Reports: Hip Replacement, Knee Replacement, Shoulder Surgery Other Musculoskeletal Surgeries/Procedures:: right foot surgery right hip dislocation Oncologic Surgical History: Reports: Lumpectomy Social & Family History - Caffeine Use Caffeine Use: Reports: Coffee Caffeine Use Comment: 1-2 cups/day - Living Situation & Occupation Living situation: Reports: Occupation: Retired ED ROS GENERAL - Review of Systems Review Of Systems: Comprehensive ROS is negative, except as noted in HPI. Skin: Reports: Other (Rt upper rib pain that radiates to the back. ) ED EXAM, GENERAL - Physical Exam Exam: See Below Exam Limited By: No Limitations General Appearance: Alert, WD/WN, No Apparent Distress Eye Exam: Bilateral Eye: PERRL Nose: Normal Inspection, Normal Mucosa Throat/Mouth: Normal Inspection, Normal Lips, Normal Teeth Head: Atraumatic, Normocephalic Neck: Normal Inspection, Supple, Non-Tender Respiratory/Chest: No Respiratory Distress, Lungs Clear, No Accessory Muscle Use, Other (Tender Rt upper chest) Cardiovascular: Normal Peripheral Pulses, Regular Rate, Rhythm, No Edema GI/Abdominal: Normal Bowel Sounds, Soft, Non-Tender (Female) Exam: Deferred Rectal (Female) Exam: Deferred Back Exam: Normal Inspection Extremities: Normal Inspection Neurological: Alert, Oriented, CN II-XII Intact Psychiatric: Normal Affect, Normal Mood Skin Exam: Warm, Dry, Intact Lymphatic: No Adenopathy Course - Vital Signs Last Recorded V/S: Last Vital Signs Temp 36.9 C 11/30/20 09:55 Pulse 83 11/30/20 09:55 Resp 16 11/30/20 09:55 BP 100/54 L 11/30/20 09:55 Pulse Ox 100 11/30/20 09:55 Departure - Departure Time of Disposition: 11:02 Disposition: Home, Self-Care 01 Condition: Good Clinical Impression: Contusion of rib on right side Qualifiers: Encounter type: initial encounter Qualified Code(s): S20.211A - Contusion of right front wall of thorax, initial encounter - Discharge Information *PRESCRIPTION DRUG MONITORING PROGRAM REVIEWED*: Not Applicable *COPY OF PRESCRIPTION DRUG MONITORING REPORT IN PATIENT KARELY: Not Applicable Instructions: Rib Contusion Referrals: Tavares Orozco MD [Primary Care Provider] - Forms: ED Department Discharge Additional Instructions: Discharge home. Tylenol 500mg by mouth every 6 hours as needed for pain. Follow up in the clinic as needed. Call or return to the ER if you have any questions or concerns. Care Plan Goals: Take Tylenol 500MG OTC for pain every 6 hours.Return to ED or see PCP for new or worsening symptoms. Ambulate using walker with care. Sepsis Event Note (ED) - Focused Exam Vital Signs: Vital Signs Temp Pulse Resp BP Pulse Ox 11/30/20 09:55 36.9 C 83 16 100/54 L 100 11/30/20 09:45 36.9 C 83 16 100/54 L 100 - Problem List Review Problem List Initiated/Reviewed/Updated: Yes - Assessment/Plan Assessment:: Rt rib contusion. Plan: Take Tylenol 500MG OTC for pain every 6 hours.Return to ED or see PCP for new or worsening symptoms. Ambulate using walker with care.
[2020-11-30 10:05] VITALS: BP 100/54; PULSE 83
--- NOTE | 2020-11-30 11:04 | CR ---
DATE OF SERVICE: 11/30/2020 CLINICAL DATA: Right sided rib pain AP chest and bilateral ribs: Comparison is made to a prior exam dated 18 September 2020. Heart remains enlarged, unchanged. There is calcification of the aortic arch. There are linear densities in both lower lungs consistent with linear atelectasis or fibrosis. There are atelectatic changes base. There is diffuse osteopenia. No displaced rib fractures. There is degenerative disc disease throughout the thoracic spine with compression deformity of multiple vertebrae. No pneumothorax. No pleural effusions. No other significant findings. MTDD
== END 2020-11-30 11:05 | disposition home or self-care (01) ==
LOC: LB.ED 09:05
DX: S20.211A Contusion of right front wall of thorax, initial encounter (principal); I11.0 Hypertensive heart disease with heart failure; I50.9 Heart failure, unspecified; K21.9 Gastro-esophageal reflux disease without esophagitis; I25.10 Atherosclerotic heart disease of native coronary artery without angina pectoris; M19.90 Unspecified osteoarthritis, unspecified site; Z88.2 Allergy status to sulfonamides; Z88.0 Allergy status to penicillin; Z88.1 Allergy status to other antibiotic agents; Z88.5 Allergy status to narcotic agent; Z91.040 Latex allergy status; Z88.8 Allergy status to other drugs, medicaments and biological substances; Z88.4 Allergy status to anesthetic agent; Z91.048 Other nonmedicinal substance allergy status; Z79.82 Long term (current) use of aspirin; Z79.01 Long term (current) use of anticoagulants; Z79.899 Other long term (current) drug therapy; W19.XXXA Unspecified fall, initial encounter; Y92.009 Unspecified place in unspecified non-institutional (private) residence as the place of occurrence of the external cause
CPT/HCPCS: 71111; 99283-25

== ENCOUNTER 2022-03-06 13:28 | Observation (INO) | payer MEDICARE ==
[2022-03-06 15:17] LABS: ESTIMATED GFR 36 mL/min (>60)
[2022-03-06] MEDS ORDERED: LORazepam 0.5 MG Tab PO PRN (19:25)
[2022-03-06] MEDS ORDERED: Acetaminophen 325 MG Tab PO PRN (19:27)
[2022-03-06] MEDS ORDERED: Sodium Chloride 0.9% 10 ML Syringe FLUSH PRN (19:32)
[2022-03-06] MEDS ORDERED: Carvedilol 3.125 MG Tab PO SCH (20:00)
[2022-03-06] MEDS ORDERED: Apixaban 2.5 MG Tab PO SCH (20:00)
[2022-03-06] MEDS ORDERED: atorvaSTATin 20 MG Tab PO SCH (20:00)
[2022-03-06] MEDS: Apixaban 2.5 MG Tab PO SCH (20:57)
[2022-03-07] MEDS ORDERED: Levothyroxine 25 MCG Tab PO SCH (07:00)
[2022-03-07] MEDS ORDERED: Ferrous Sulfate 325 MG Tab PO SCH (07:00)
[2022-03-07] MEDS: Apixaban 2.5 MG Tab PO SCH (07:45)
[2022-03-07] MEDS ORDERED: Psyllium Husk Powder Sugar Free 5.85 GM Packet PO SCH (08:00)
[2022-03-07] MEDS ORDERED: Metolazone 5 MG Tab PO SCH (08:00)
[2022-03-07] MEDS ORDERED: Amiodarone 200 MG Tab PO SCH (08:00)
[2022-03-07] MEDS ORDERED: Aspirin 81 MG Tab.Chew PO SCH (08:00)
[2022-03-07] MEDS ORDERED: Magnesium Oxide 400 MG Tab PO SCH (08:00)
[2022-03-07] MEDS ORDERED: Furosemide 40 MG Tab PO SCH (08:00)
[2022-03-07] MEDS ORDERED: Losartan 25 MG Tab PO SCH (08:00)
[2022-03-07 08:01] VITALS: PULSE 54
[2022-03-07 11:46] VITALS: BP 103/59
[2022-03-08] MEDS ORDERED: Omeprazole 20 MG Cap.CR PO SCH (07:00)
== END 2022-03-07 12:23 ==
LOC: LB.ED 13:28 → LB.MS 18:37
PROVIDERS: ADMIT Emergency Medicine; ATTEND Emergency Medicine
DX: I11.0 Hypertensive heart disease with heart failure (principal); I50.9 Heart failure, unspecified; I25.10 Atherosclerotic heart disease of native coronary artery without angina pectoris; E78.00 Pure hypercholesterolemia, unspecified; K21.9 Gastro-esophageal reflux disease without esophagitis; E03.9 Hypothyroidism, unspecified; Z79.890 Hormone replacement therapy; Z20.822 Contact with and (suspected) exposure to COVID-19; Z88.2 Allergy status to sulfonamides; Z88.1 Allergy status to other antibiotic agents; Z88.5 Allergy status to narcotic agent; Z88.8 Allergy status to other drugs, medicaments and biological substances; Z98.890 Other specified postprocedural states; Z91.040 Latex allergy status; Z79.899 Other long term (current) drug therapy; Z79.01 Long term (current) use of anticoagulants
CPT/HCPCS: 36415; 71046; 80053; 83880; 84484; 85025; 85379; 93005; 99285; A9270; G0378; U0002; 93010; 99217; 99219

== ENCOUNTER 2022-06-13 10:04 | Observation (INO) | payer MEDICARE ==
[2022-06-13] MEDS ORDERED: Sodium Chloride 0.9% 10 ML Syringe FLUSH PRN (10:40)
[2022-06-13] MEDS: Lactated Ringers 1,000 ML IV SCH ×2 (10:54→16:22)
[2022-06-13] MEDS: Sodium Chloride 0.9% 1,000 ML IV SCH (17:20)
[2022-06-13] MEDS ORDERED: Apixaban 2.5 MG Tab ONE (19:40)
[2022-06-13] MEDS ORDERED: atorvaSTATin 20 MG Tab ONE (19:41)
[2022-06-13] MEDS: Non-Formulary Medication 1 Each (Apixaban [Eliquis] 5 MG Tablet) PO SCH (19:45)
[2022-06-14] MEDS: Sodium Chloride 0.9% 1,000 ML IV SCH (06:40)
[2022-06-14] MEDS ORDERED: Non-Formulary Medication 1 Each (Levothyroxine [Levothyroxine] 25 MCG Tablet) PO SCH (08:00)
[2022-06-14] MEDS ORDERED: Non-Formulary Medication 1 Each (Losartan [Cozaar] 25 MG Tablet) PO SCH (08:00)
[2022-06-14] MEDS ORDERED: AMIODARONE 200 MG PO SCH ×3 (08:00→20:45)
[2022-06-14] MEDS ORDERED: Non-Formulary Medication 1 Each (Furosemide [Furosemide] 40 MG Tablet) PO SCH (08:00)
[2022-06-14] MEDS ORDERED: Furosemide 20 MG Tab ONE (08:17)
[2022-06-14] MEDS ORDERED: Losartan 25 MG Tab ONE (08:17)
[2022-06-14] MEDS ORDERED: Apixaban 5 MG Tab ONE (08:17)
[2022-06-14] MEDS ORDERED: Levothyroxine 50 MCG Tab ONE (08:18)
[2022-06-14] MEDS ORDERED: Amiodarone 200 MG Tab ONE (08:18)
[2022-06-14] MEDS: Non-Formulary Medication 1 Each (Apixaban [Eliquis] 5 MG Tablet) PO SCH (08:21)
[2022-06-14 10:31] LABS: TROPONIN I HIGH SENSITIVITY 1981.3 pg/ml (<=60.4)
[2022-06-14] MEDS: Metoprolol Succinate 25 MG Tab.ER PO SCH (12:51)
[2022-06-14] MEDS ORDERED: LOSARTAN 25 MG PO SCH (15:23)
[2022-06-14] MEDS ORDERED: AMIODARONE 400 MG PO SCH (20:00)
[2022-06-14] MEDS: APIXABAN 5 MG PO SCH (20:14)
[2022-06-14] MEDS: AMOXICILLIN 875 MG PO SCH (21:30)
[2022-06-14] MEDS: AMIODARONE 200 MG PO SCH (23:03)
[2022-06-15] MEDS: LEVOTHYROXINE 25 MCG PO SCH (07:01)
[2022-06-15] MEDS: APIXABAN 5 MG PO SCH ×2 (07:54→19:30)
[2022-06-15] MEDS: AMIODARONE 200 MG PO SCH ×2 (07:56→19:32)
[2022-06-15] MEDS: ASPIRIN 81 MG PO SCH (07:59)
[2022-06-15] MEDS: FUROSEMIDE 40 MG PO SCH (07:59)
[2022-06-15] MEDS ORDERED: Aspirin 81 MG Tab.EC PO SCH (08:00)
[2022-06-15] MEDS: AMOXICILLIN 875 MG PO SCH ×2 (08:00→19:32)
[2022-06-15] MEDS ORDERED: AMOXICILLIN 875 MG PO SCH (08:00)
[2022-06-15] MEDS ORDERED: Non-Formulary Medication 1 Each (Magnesium Oxide [Magnesium] 400 MG Tablet) PO SCH (08:00)
[2022-06-15] MEDS: Metoprolol Succinate 25 MG Tab.ER PO SCH (08:01)
[2022-06-15] MEDS: MAGNESIUM OXIDE 400 MG PO SCH (08:01)
[2022-06-15 09:35] LABS: TROPONIN I HIGH SENSITIVITY 2440.2 pg/ml (<=60.4)
[2022-06-16] MEDS ORDERED: Levothyroxine 25 MCG Tab ONE (07:25)
[2022-06-16] MEDS: LEVOTHYROXINE 25 MCG PO SCH (07:27)
[2022-06-16 07:36] VITALS: BP 115/81
[2022-06-16] MEDS ORDERED: Metoprolol Succinate 25 MG Tab.ER PO SCH (08:00)
[2022-06-16] MEDS: AMOXICILLIN 875 MG PO SCH (08:23)
[2022-06-16] MEDS: MAGNESIUM OXIDE 400 MG PO SCH (08:23)
[2022-06-16] MEDS: ASPIRIN 81 MG PO SCH (08:24)
[2022-06-16] MEDS: FUROSEMIDE 40 MG PO SCH (08:25)
[2022-06-16] MEDS: APIXABAN 5 MG PO SCH (08:25)
[2022-06-16] MEDS: AMIODARONE 200 MG PO SCH (08:25)
[2022-06-16 08:29] VITALS: PULSE 79
[2022-06-16 09:11] LABS: T3 UPTAKE 41 % (24-39)
== END 2022-06-16 13:55 | disposition home or self-care (01) ==
LOC: LB.ED 10:04 → LB.MS 12:39
PROVIDERS: ADMIT Surgery; ATTEND Surgery
DX: I48.91 Unspecified atrial fibrillation (principal); R77.8 Other specified abnormalities of plasma proteins; E86.0 Dehydration; R42 Dizziness and giddiness; Z79.01 Long term (current) use of anticoagulants; I50.9 Heart failure, unspecified; N18.9 Chronic kidney disease, unspecified; I25.10 Atherosclerotic heart disease of native coronary artery without angina pectoris; E78.00 Pure hypercholesterolemia, unspecified; I13.0 Hypertensive heart and chronic kidney disease with heart failure and stage 1 through stage 4 chronic kidney disease, or unspecified chronic kidney disease; K21.9 Gastro-esophageal reflux disease without esophagitis; E03.9 Hypothyroidism, unspecified; Z20.822 Contact with and (suspected) exposure to COVID-19; Z88.5 Allergy status to narcotic agent; Z88.8 Allergy status to other drugs, medicaments and biological substances; Z91.040 Latex allergy status; Z88.1 Allergy status to other antibiotic agents; Z79.899 Other long term (current) drug therapy; Z98.890 Other specified postprocedural states; Z79.890 Hormone replacement therapy
CPT/HCPCS: 36415; 80048; 83735; 84100; 84439; 84443; 84479; 84484; 85027; 85379; 93005; 96360; 96361; 99285; A9270; J7030; J7120; U0002

== ENCOUNTER 2022-08-31 14:42 | Emergency (ER) | payer MEDICARE ==
[2022-08-31 15:19] VITALS: BP 118/70; PULSE 82
[2022-08-31 15:58] LABS: ESTIMATED GFR 33 mL/min (>60)
[2022-08-31 16:09] LABS: TROPONIN I HIGH SENSITIVITY 22686.8 pg/ml (<=60.4)
[2022-08-31] MEDS ORDERED: Isosorbide Dinitrate 10 MG Tab ONE (16:30)
== END 2022-08-31 17:00 | disposition home or self-care (01) ==
LOC: SUPCPDRO 14:42 → LB.ED 14:42
DX: I11.0 Hypertensive heart disease with heart failure (principal); I50.9 Heart failure, unspecified; R77.8 Other specified abnormalities of plasma proteins; I44.0 Atrioventricular block, first degree; I25.119 Atherosclerotic heart disease of native coronary artery with unspecified angina pectoris; K21.9 Gastro-esophageal reflux disease without esophagitis; M19.90 Unspecified osteoarthritis, unspecified site; E03.9 Hypothyroidism, unspecified; Z88.2 Allergy status to sulfonamides; Z88.0 Allergy status to penicillin; Z88.1 Allergy status to other antibiotic agents; Z88.8 Allergy status to other drugs, medicaments and biological substances; Z91.040 Latex allergy status; Z88.5 Allergy status to narcotic agent; Z88.4 Allergy status to anesthetic agent; Z91.048 Other nonmedicinal substance allergy status; Z79.01 Long term (current) use of anticoagulants; Z79.899 Other long term (current) drug therapy
CPT/HCPCS: 36415; 71045; 80053; 83880; 84484; 85025; 85610; 85730; 93005; 99284; A9270-GY

== ENCOUNTER 2022-09-06 13:49 | Emergency (ER) | payer MEDICARE ==
[2022-09-06 14:32] VITALS: BP 118/61; PULSE 54
[2022-09-06 14:59] LABS: ESTIMATED GFR 33 mL/min (>60)
== END 2022-09-06 15:23 | disposition home or self-care (01) ==
LOC: LB.ED 13:49
DX: I20.8 Other forms of angina pectoris (principal); R00.1 Bradycardia, unspecified; I11.0 Hypertensive heart disease with heart failure; I50.9 Heart failure, unspecified; E78.00 Pure hypercholesterolemia, unspecified; K21.9 Gastro-esophageal reflux disease without esophagitis; M19.90 Unspecified osteoarthritis, unspecified site; E03.9 Hypothyroidism, unspecified; Z79.01 Long term (current) use of anticoagulants; Z79.899 Other long term (current) drug therapy; Z88.2 Allergy status to sulfonamides; Z88.0 Allergy status to penicillin; Z88.1 Allergy status to other antibiotic agents; Z88.5 Allergy status to narcotic agent; Z91.040 Latex allergy status; Z88.8 Allergy status to other drugs, medicaments and biological substances; Z88.4 Allergy status to anesthetic agent; Z91.048 Other nonmedicinal substance allergy status
CPT/HCPCS: 36415; 71045; 80053; 83880; 84484; 85025; 85379; 85610; 93005; 93010; 99283; 99285

== ENCOUNTER 2022-12-18 15:04 | Observation (INO) | payer MEDICARE ==
[2022-12-18] MEDS ORDERED: Acetaminophen 325 MG Tab PO ONE (15:28)
[2022-12-18] MEDS ORDERED: Acetaminophen 325 MG Tab ONE (15:32)
[2022-12-18] MEDS: ISOSORBIDE DINITRATE 5 MG PO SCH (20:57)
[2022-12-18] MEDS ORDERED: Isosorbide Mononitrate 30 MG Tab.ER PO SCH (21:00)
[2022-12-18] MEDS: Acetaminophen 325 MG Tab PO PRN (23:50)
[2022-12-19] MEDS: LEVOTHYROXINE 25 MCG PO SCH (06:06)
[2022-12-19] MEDS: OMEPRAZOLE 20 MG CAP *PT OWN MED PO SCH (06:07)
[2022-12-19] MEDS ORDERED: Omeprazole 20 MG Cap.CR PO SCH (08:00)
[2022-12-19] MEDS ORDERED: AMIODARONE 200 MG PO SCH (08:00)
[2022-12-19] MEDS ORDERED: Amiodarone 200 MG Tab PO SCH (08:00)
[2022-12-19] MEDS: LOSARTAN 25 MG PO SCH (08:54)
[2022-12-19] MEDS: Aspirin 81 MG Tab.Chew PO SCH ×2 (09:03→19:34)
[2022-12-19] MEDS: Cholecalciferol (Vitamin D3) 2,000 Unit Cap PO SCH (09:03)
[2022-12-19] MEDS: Docusate Sodium 100 MG Cap PO SCH (09:03)
[2022-12-19] MEDS: Magnesium Oxide 400 MG Tab PO SCH (09:04)
[2022-12-19] MEDS: Acetaminophen 325 MG Tab PO PRN ×2 (09:04→15:49)
[2022-12-19] MEDS: Furosemide 40 MG Tab *PT OWN MED PO SCH (09:05)
[2022-12-19] MEDS: ASCORBIC ACID 500 MG PO SCH (09:05)
[2022-12-19] MEDS: ISOSORBIDE DINITRATE 5 MG PO SCH ×3 (09:05→19:34)
[2022-12-19] MEDS: AMIODARONE 200 MG PO SCH ×2 (09:06→19:34)
[2022-12-19] MEDS: Acetaminophen 325 MG Tab PO SCH (21:14)
[2022-12-20] MEDS: Acetaminophen 325 MG Tab PO SCH ×4 (04:39→21:41)
[2022-12-20] MEDS: LEVOTHYROXINE 25 MCG PO SCH (06:03)
[2022-12-20] MEDS: Aspirin 81 MG Tab.Chew PO SCH ×2 (08:07→19:52)
[2022-12-20] MEDS: LOSARTAN 25 MG PO SCH (08:07)
[2022-12-20] MEDS: Docusate Sodium 100 MG Cap PO SCH (08:07)
[2022-12-20] MEDS: AMIODARONE 200 MG PO SCH ×2 (08:07→20:05)
[2022-12-20] MEDS: Furosemide 40 MG Tab *PT OWN MED PO SCH (08:08)
[2022-12-20] MEDS: ASCORBIC ACID 500 MG PO SCH (08:09)
[2022-12-20] MEDS: ISOSORBIDE DINITRATE 5 MG PO SCH ×3 (08:09→19:52)
[2022-12-20] MEDS: Magnesium Oxide 400 MG Tab PO SCH (08:09)
[2022-12-20] MEDS: Cholecalciferol (Vitamin D3) 2,000 Unit Cap PO SCH (08:10)
[2022-12-21] MEDS: Acetaminophen 325 MG Tab PO SCH (03:55)
[2022-12-21 04:03] VITALS: BP 124/69; PULSE 72
[2022-12-21] MEDS: LEVOTHYROXINE 25 MCG PO SCH (06:27)
[2022-12-21] MEDS: OMEPRAZOLE 20 MG CAP *PT OWN MED PO SCH (06:28)
[2022-12-21] MEDS ORDERED: AMIODARONE 200 MG PO SCH (08:00)
[2022-12-21] MEDS ORDERED: Amiodarone 200 MG Tab PO SCH (08:00)
== END 2022-12-21 07:00 | disposition critical access hospital (66) ==
LOC: LB.ED 15:04 → LB.MS 17:30
PROVIDERS: ADMIT Registered Nurse; ATTEND Registered Nurse
DX: S42.295A Other nondisplaced fracture of upper end of left humerus, initial encounter for closed fracture (principal); R53.1 Weakness; I25.10 Atherosclerotic heart disease of native coronary artery without angina pectoris; I11.0 Hypertensive heart disease with heart failure; I50.9 Heart failure, unspecified; E78.00 Pure hypercholesterolemia, unspecified; G43.909 Migraine, unspecified, not intractable, without status migrainosus; E03.9 Hypothyroidism, unspecified; K21.9 Gastro-esophageal reflux disease without esophagitis; Z88.2 Allergy status to sulfonamides; Z88.1 Allergy status to other antibiotic agents; Z88.5 Allergy status to narcotic agent; Z79.890 Hormone replacement therapy; Z79.899 Other long term (current) drug therapy; W18.30XA Fall on same level, unspecified, initial encounter; Y92.002 Bathroom of unspecified non-institutional (private) residence as the place of occurrence of the external cause
CPT/HCPCS: 73030-LT; 73060-LT; 73501-LT; 73560-LT; 97110-GO; 97162-GP; 97165-GO; 97530-GP; 99284; A9270-GY; G0378

== ENCOUNTER 2022-12-21 07:00 | Inpatient (IN) | payer MEDICARE ==
[2022-12-21] MEDS ORDERED: Tuberculin, PPD 5 Units/0.1 ML 1 ML MDV IDERM ONE (07:24)
[2022-12-21] MEDS ORDERED: diphenhydrAMINE 25 MG Cap PO PRN (08:57)
[2022-12-21] MEDS ORDERED: Acetaminophen 325 MG Tab PO PRN (09:12)
[2022-12-21] MEDS ORDERED: Omeprazole 20 MG Cap.CR PO SCH (09:15)
[2022-12-21] MEDS: Docusate Sodium 100 MG Cap PO SCH (10:03)
[2022-12-21] MEDS: Amiodarone 200 MG Tab PO SCH (10:04)
[2022-12-21] MEDS: Losartan 25 MG Tab PO SCH (10:04)
[2022-12-21] MEDS: Isosorbide Dinitrate 10 MG Tab PO SCH ×3 (10:06→19:35)
[2022-12-21] MEDS: Furosemide 20 MG Tab PO SCH (10:06)
[2022-12-21] MEDS: Aspirin 81 MG Tab.EC PO SCH ×2 (10:06→19:35)
[2022-12-21] MEDS: Magnesium Oxide 400 MG Tab PO SCH (10:07)
[2022-12-21] MEDS: Cholecalciferol (Vitamin D3) 2,000 Unit Cap PO SCH (10:07)
[2022-12-21] MEDS: Ascorbic Acid 500 MG Tab PO SCH (10:07)
[2022-12-21] MEDS: Acetaminophen 325 MG Tab PO SCH ×3 (10:08→22:09)
[2022-12-21] MEDS ORDERED: ISOSORBIDE DINITRATE 5 MG PO SCH (14:00)
[2022-12-21] MEDS ORDERED: Aspirin 81 MG Tab.EC PO SCH (20:00)
[2022-12-22] MEDS: Acetaminophen 325 MG Tab PO SCH ×4 (03:51→22:10)
[2022-12-22] MEDS: Levothyroxine 25 MCG Tab PO SCH (07:31)
[2022-12-22] MEDS ORDERED: Levothyroxine 25 MCG Tab PO SCH (08:00)
[2022-12-22] MEDS ORDERED: ASCORBIC ACID PO SCH (08:00)
[2022-12-22] MEDS ORDERED: Non-Formulary Medication 1 Each (Magnesium Oxide [Magnesium] 400 MG Tablet) PO SCH (08:00)
[2022-12-22] MEDS ORDERED: Cholecalciferol (Vitamin D3) 2,000 Unit Cap PO SCH (08:00)
[2022-12-22] MEDS ORDERED: Amiodarone 200 MG Tab PO SCH (08:00)
[2022-12-22] MEDS ORDERED: Docusate Sodium 100 MG Cap PO SCH (08:00)
[2022-12-22] MEDS ORDERED: [UNRECOGNIZED DRUG - OTHER] PO SCH (08:00)
[2022-12-22] MEDS ORDERED: Furosemide 20 MG Tab PO SCH (08:00)
[2022-12-22] MEDS ORDERED: ASCORBATE SODIUM PO SCH (08:00)
[2022-12-22] MEDS ORDERED: Losartan 25 MG Tab PO SCH (08:00)
[2022-12-22] MEDS: Magnesium Oxide 400 MG Tab PO SCH (08:26)
[2022-12-22] MEDS: Amiodarone 200 MG Tab PO SCH (08:26)
[2022-12-22] MEDS: Furosemide 20 MG Tab PO SCH (08:27)
[2022-12-22] MEDS: Cholecalciferol (Vitamin D3) 2,000 Unit Cap PO SCH (08:27)
[2022-12-22] MEDS: Ascorbic Acid 500 MG Tab PO SCH (08:27)
[2022-12-22] MEDS: Losartan 25 MG Tab PO SCH (08:27)
[2022-12-22] MEDS: Aspirin 81 MG Tab.EC PO SCH ×2 (08:28→19:57)
[2022-12-22] MEDS: Docusate Sodium 100 MG Cap PO SCH (08:28)
[2022-12-22] MEDS: Isosorbide Dinitrate 10 MG Tab PO SCH ×3 (08:29→19:57)
[2022-12-23] MEDS: Acetaminophen 325 MG Tab PO SCH ×2 (04:16→10:09)
[2022-12-23] MEDS ORDERED: Omeprazole 20 MG Cap.CR PO SCH (07:00)
[2022-12-23] MEDS: Levothyroxine 25 MCG Tab PO SCH (07:33)
[2022-12-23] MEDS: Losartan 25 MG Tab PO SCH (07:33)
[2022-12-23] MEDS: Cholecalciferol (Vitamin D3) 2,000 Unit Cap PO SCH (07:33)
[2022-12-23] MEDS: Docusate Sodium 100 MG Cap PO SCH (07:33)
[2022-12-23] MEDS: Aspirin 81 MG Tab.EC PO SCH (07:33)
[2022-12-23] MEDS: Ascorbic Acid 500 MG Tab PO SCH (07:33)
[2022-12-23] MEDS: Amiodarone 200 MG Tab PO SCH (07:33)
[2022-12-23] MEDS: Magnesium Oxide 400 MG Tab PO SCH (07:33)
[2022-12-23] MEDS: Furosemide 20 MG Tab PO SCH (07:34)
[2022-12-23] MEDS: Isosorbide Dinitrate 10 MG Tab PO SCH (07:34)
[2022-12-23 07:36] VITALS: BP 152/76
[2022-12-23 07:41] VITALS: PULSE 94
[2022-12-23] MEDS ORDERED: Enoxaparin 80 MG/0.8 ML Syringe SUBCUT ONE (08:04)
[2022-12-23] MEDS ORDERED: traMADol 50 MG Tab PO ONE (09:22)
== END 2022-12-23 10:30 | DRG 556 ==
LOC: UNDOADMIN 07:00 → LB.MS 07:00
PROVIDERS: ADMIT Physician Assistant; ATTEND Physician Assistant
DX: R26.2 Difficulty in walking, not elsewhere classified (principal); S42.212A Unspecified displaced fracture of surgical neck of left humerus, initial encounter for closed fracture; R20.2 Paresthesia of skin; M79.661 Pain in right lower leg; W19.XXXA Unspecified fall, initial encounter
CPT/HCPCS: 86580; A0425; A0429; A9270-GY; J1650

== ENCOUNTER 2022-12-27 18:57 | Inpatient (IN) | payer MEDICARE ==
[2022-12-27] MEDS: Acetaminophen 500 MG Tab PO SCH (20:43)
[2022-12-28] MEDS: Acetaminophen 500 MG Tab PO SCH ×3 (03:36→19:05)
[2022-12-28] MEDS: Furosemide 20 MG Tab PO SCH (07:45)
[2022-12-28] MEDS: Apixaban 5 MG Tab PO SCH (07:45)
[2022-12-28] MEDS: Levothyroxine 50 MCG Tab PO SCH (07:45)
[2022-12-28] MEDS ORDERED: Tuberculin, PPD 5 Units/0.1 ML 1 ML MDV IDERM ONE (08:00)
[2022-12-28 16:30] LABS: HEMATOCRIT 34.5 % (37.0-47.0); HEMOGLOBIN 11.3 g/dL (11.5-16.5); MEAN CORPUSCULAR HEMOGLOBIN 33.2 pg (27.0-32.0); MEAN CORPUSCULAR HGB CONC 32.8 g/dL (31.0-35.0); MEAN PLATELET VOLUME 10.8 fL (6.0-10.0); RED BLOOD CELL COUNT 3.4 M/uL (3.80-5.80); RED CELL DISTRIBUTION WIDTH 13.8 % (11.0-16.0); WHITE BLOOD CELL COUNT,WBC 5.8 K/uL (4.0-11.0)
[2022-12-28 16:43] LABS: ANION GAP 10.8 mmol/L (5.0-15.0); CALCIUM 8.3 mg/dL (8.5-10.1); CARBON DIOXIDE,CO2 29.1 mmol/L (21.0-32.0); CREATININE 1.23 mg/dL (0.55-1.02); EST CRCL DRUG DOSING (CG) 34.95 mL/min; POTASSIUM,K 3.9 mmol/L (3.5-5.1)
[2022-12-28] MEDS: atorvaSTATin 20 MG Tab PO SCH (19:05)
[2022-12-28] MEDS: Amiodarone 200 MG Tab PO SCH (19:05)
[2022-12-29] MEDS: Acetaminophen 500 MG Tab PO SCH ×3 (03:17→20:01)
[2022-12-29] MEDS: Apixaban 5 MG Tab PO SCH (08:25)
[2022-12-29] MEDS: Furosemide 20 MG Tab PO SCH (08:25)
[2022-12-29] MEDS: Amiodarone 200 MG Tab PO SCH (08:25)
[2022-12-29] MEDS: Levothyroxine 50 MCG Tab PO SCH (08:25)
[2022-12-29] MEDS: Cyclobenzaprine 5 MG Tab PO SCH (20:02)
[2022-12-29] MEDS: atorvaSTATin 20 MG Tab PO SCH (20:02)
[2022-12-29] MEDS ORDERED: Isosorbide Dinitrate 10 MG Tab PO ONE (20:30)
[2022-12-29] MEDS ORDERED: Isosorbide Dinitrate 10 MG Tab PO PRN ×2 (20:58→20:59)
[2022-12-30] MEDS ORDERED: Isosorbide Dinitrate 10 MG Tab PO SCH (07:30)
[2022-12-30] MEDS: Levothyroxine 50 MCG Tab PO SCH (08:17)
[2022-12-30] MEDS: Ascorbic Acid 500 MG Tab PO SCH (08:18)
[2022-12-30] MEDS: Apixaban 5 MG Tab PO SCH (08:18)
[2022-12-30] MEDS: Cholecalciferol (Vitamin D3) 2,000 Unit Cap PO SCH (08:18)
[2022-12-30] MEDS: Furosemide 20 MG Tab PO SCH (08:18)
[2022-12-30] MEDS: Amiodarone 200 MG Tab PO SCH (08:18)
[2022-12-30] MEDS: Docusate Sodium 100 MG Cap PO SCH (08:18)
[2022-12-30] MEDS: Acetaminophen 500 MG Tab PO SCH ×3 (08:21→19:53)
[2022-12-30] MEDS: atorvaSTATin 20 MG Tab PO SCH (19:53)
[2022-12-30] MEDS: Cyclobenzaprine 5 MG Tab PO SCH (19:53)
[2022-12-31] MEDS: Acetaminophen 500 MG Tab PO SCH ×3 (03:15→19:21)
[2022-12-31] MEDS: Cholecalciferol (Vitamin D3) 2,000 Unit Cap PO SCH (07:33)
[2022-12-31] MEDS: Apixaban 5 MG Tab PO SCH (07:33)
[2022-12-31] MEDS: Levothyroxine 50 MCG Tab PO SCH (07:33)
[2022-12-31] MEDS: Furosemide 20 MG Tab PO SCH (07:33)
[2022-12-31] MEDS: Docusate Sodium 100 MG Cap PO SCH (07:33)
[2022-12-31] MEDS: Amiodarone 200 MG Tab PO SCH (07:33)
[2022-12-31] MEDS: Ascorbic Acid 500 MG Tab PO SCH (07:33)
[2022-12-31] MEDS ORDERED: traMADol 50 MG Tab ONE (11:07)
[2022-12-31] MEDS: traMADol 50 MG Tab PO PRN ×2 (11:25→22:01)
[2022-12-31] MEDS: atorvaSTATin 20 MG Tab PO SCH (19:22)
[2023-01-01] MEDS: Acetaminophen 500 MG Tab PO SCH ×3 (05:11→22:12)
[2023-01-01] MEDS: Levothyroxine 50 MCG Tab PO SCH (06:32)
[2023-01-01] MEDS: traMADol 50 MG Tab PO PRN ×2 (06:34→22:13)
[2023-01-01] MEDS: Furosemide 20 MG Tab PO SCH (08:14)
[2023-01-01] MEDS: Apixaban 5 MG Tab PO SCH (08:14)
[2023-01-01] MEDS: Amiodarone 200 MG Tab PO SCH (08:14)
[2023-01-01] MEDS: Docusate Sodium 100 MG Cap PO SCH (08:14)
[2023-01-01] MEDS: Ascorbic Acid 500 MG Tab PO SCH (08:15)
[2023-01-01] MEDS: Cholecalciferol (Vitamin D3) 2,000 Unit Cap PO SCH (08:15)
[2023-01-01 12:19] LABS: BILIRUBIN,URINE NEGATIVE (NEGATIVE); COLOR,URINE YELLOW; GLUCOSE,URINE NEGATIVE (NEGATIVE); KETONES,URINE NEGATIVE (NEGATIVE); LEUKOCYTE ESTERASE,URINE MODERATE (NEGATIVE); NITRITE,URINE POSITIVE (NEGATIVE); OCCULT BLOOD,URINE MODERATE (NEGATIVE); PROTEIN,URINE 30 mg/dL (NEGATIVE); UROBILINOGEN,URINE 0.2 E.U./dL (0.2-1.0)
[2023-01-01 12:27] LABS: APPEARANCE,URINE CLEAR (CLEAR); CALCIUM OXALATE CRYSTALS,URINE FEW /HPF; RBC,URINE 40-50 /HPF; SQUAMOUS EPITHELIAL CELLS,UR FEW /HPF; WBC CLUMPS,URINE MODERATE /HPF; WBC,URINE 30-40 /HPF
[2023-01-01 12:28] LABS: BACTERIA,URINE MODERATE /HPF
[2023-01-01] MEDS ORDERED: Nitrofurantoin Monohydrate/Macrocrystalline 100 MG Cap PO SCH (20:00)
[2023-01-01] MEDS: Nitrofurantoin Macrocrystal 50 MG Cap PO SCH (22:13)
[2023-01-01] MEDS: atorvaSTATin 20 MG Tab PO SCH (22:13)
[2023-01-02] MEDS: Acetaminophen 500 MG Tab PO SCH ×3 (06:17→19:23)
[2023-01-02] MEDS: Levothyroxine 50 MCG Tab PO SCH (06:17)
[2023-01-02] MEDS: Ascorbic Acid 500 MG Tab PO SCH (09:27)
[2023-01-02] MEDS: Docusate Sodium 100 MG Cap PO SCH (09:27)
[2023-01-02] MEDS: Nitrofurantoin Macrocrystal 50 MG Cap PO SCH ×4 (09:27→19:25)
[2023-01-02] MEDS: Furosemide 20 MG Tab PO SCH (09:28)
[2023-01-02] MEDS: Amiodarone 200 MG Tab PO SCH (09:28)
[2023-01-02] MEDS: Apixaban 2.5 MG Tab PO SCH (09:29)
[2023-01-02] MEDS: Cholecalciferol (Vitamin D3) 2,000 Unit Cap PO SCH (09:29)
[2023-01-02] MEDS: atorvaSTATin 20 MG Tab PO SCH (20:32)
[2023-01-03] MEDS: Levothyroxine 50 MCG Tab PO SCH (07:43)
[2023-01-03] MEDS: traMADol 50 MG Tab PO PRN ×2 (07:43→20:01)
[2023-01-03] MEDS: Amiodarone 200 MG Tab PO SCH (07:44)
[2023-01-03] MEDS: Cholecalciferol (Vitamin D3) 2,000 Unit Cap PO SCH (07:44)
[2023-01-03] MEDS: Docusate Sodium 100 MG Cap PO SCH (07:44)
[2023-01-03] MEDS: Furosemide 20 MG Tab PO SCH (07:44)
[2023-01-03] MEDS: Apixaban 2.5 MG Tab PO SCH (07:44)
[2023-01-03] MEDS: Nitrofurantoin Macrocrystal 50 MG Cap PO SCH ×2 (07:44→12:55)
[2023-01-03] MEDS: Ascorbic Acid 500 MG Tab PO SCH (07:44)
[2023-01-03] MEDS: Acetaminophen 500 MG Tab PO SCH ×3 (07:45→20:01)
[2023-01-03 14:35] LABS: APPEARANCE,URINE CLOUDY (CLEAR); BILIRUBIN,URINE SMALL (NEGATIVE); COLOR,URINE YELLOW; GLUCOSE,URINE NEGATIVE (NEGATIVE); KETONES,URINE NEGATIVE (NEGATIVE); LEUKOCYTE ESTERASE,URINE LARGE (NEGATIVE); NITRITE,URINE POSITIVE (NEGATIVE); OCCULT BLOOD,URINE LARGE (NEGATIVE); PROTEIN,URINE 100 mg/dL (NEGATIVE)
[2023-01-03 14:51] LABS: AMORPHOUS SEDIMENT,URINE MANY /HPF; BACTERIA,URINE MANY /HPF; RBC,URINE 30-40 /HPF; SQUAMOUS EPITHELIAL CELLS,UR MODERATE /HPF; WBC,URINE 20-30 /HPF
[2023-01-03] MEDS: Cephalexin 500 MG Cap PO SCH (18:13)
[2023-01-03] MEDS: atorvaSTATin 20 MG Tab PO SCH (20:03)
[2023-01-04] MEDS: Cephalexin 500 MG Cap PO SCH ×5 (00:20→23:38)
[2023-01-04] MEDS: Acetaminophen 500 MG Tab PO SCH ×3 (06:42→19:01)
[2023-01-04] MEDS: Levothyroxine 50 MCG Tab PO SCH (06:43)
[2023-01-04] MEDS: Furosemide 20 MG Tab PO SCH (08:03)
[2023-01-04] MEDS: Amiodarone 200 MG Tab PO SCH (08:03)
[2023-01-04] MEDS: Docusate Sodium 100 MG Cap PO SCH (08:03)
[2023-01-04] MEDS: Ascorbic Acid 500 MG Tab PO SCH (08:03)
[2023-01-04] MEDS: Apixaban 2.5 MG Tab PO SCH (08:03)
[2023-01-04] MEDS: Cholecalciferol (Vitamin D3) 2,000 Unit Cap PO SCH (08:04)
[2023-01-04] MEDS: atorvaSTATin 20 MG Tab PO SCH (19:01)
[2023-01-04] MEDS: traMADol 50 MG Tab PO PRN (19:02)
[2023-01-05] MEDS: Acetaminophen 500 MG Tab PO SCH ×3 (05:35→20:23)
[2023-01-05] MEDS: Cephalexin 500 MG Cap PO SCH ×3 (05:36→17:24)
[2023-01-05] MEDS: Levothyroxine 50 MCG Tab PO SCH (06:57)
[2023-01-05] MEDS: Ascorbic Acid 500 MG Tab PO SCH (07:01)
[2023-01-05] MEDS: Furosemide 20 MG Tab PO SCH (07:01)
[2023-01-05] MEDS: Amiodarone 200 MG Tab PO SCH (07:01)
[2023-01-05] MEDS: Cholecalciferol (Vitamin D3) 2,000 Unit Cap PO SCH (07:01)
[2023-01-05] MEDS: Apixaban 2.5 MG Tab PO SCH (07:01)
[2023-01-05] MEDS: Docusate Sodium 100 MG Cap PO SCH (07:01)
[2023-01-05] MEDS: traMADol 50 MG Tab PO PRN (20:25)
[2023-01-05] MEDS: atorvaSTATin 20 MG Tab PO SCH (20:26)
[2023-01-06] MEDS: Cephalexin 500 MG Cap PO SCH ×3 (00:30→12:57)
[2023-01-06] MEDS: Acetaminophen 500 MG Tab PO SCH ×3 (05:58→19:14)
[2023-01-06] MEDS: Levothyroxine 50 MCG Tab PO SCH (05:59)
[2023-01-06] MEDS: Apixaban 2.5 MG Tab PO SCH (07:52)
[2023-01-06] MEDS: Docusate Sodium 100 MG Cap PO SCH (07:52)
[2023-01-06] MEDS: Furosemide 20 MG Tab PO SCH (07:52)
[2023-01-06] MEDS: Ascorbic Acid 500 MG Tab PO SCH (07:53)
[2023-01-06] MEDS: Amiodarone 200 MG Tab PO SCH (07:53)
[2023-01-06] MEDS: Cholecalciferol (Vitamin D3) 2,000 Unit Cap PO SCH (07:53)
[2023-01-06] MEDS ORDERED: Ciprofloxacin 250 MG Tab PO ONE (13:45)
[2023-01-06] MEDS: traMADol 50 MG Tab PO PRN (19:13)
[2023-01-06] MEDS: atorvaSTATin 20 MG Tab PO SCH (19:13)
[2023-01-07] MEDS: Acetaminophen 500 MG Tab PO SCH ×3 (05:09→19:41)
[2023-01-07] MEDS: Levothyroxine 50 MCG Tab PO SCH (07:33)
[2023-01-07] MEDS: Docusate Sodium 100 MG Cap PO SCH (07:33)
[2023-01-07] MEDS: Ascorbic Acid 500 MG Tab PO SCH (07:34)
[2023-01-07] MEDS: Ciprofloxacin 250 MG Tab PO SCH ×2 (07:34→19:43)
[2023-01-07] MEDS: Apixaban 2.5 MG Tab PO SCH (07:34)
[2023-01-07] MEDS: Amiodarone 200 MG Tab PO SCH (07:35)
[2023-01-07] MEDS: Cholecalciferol (Vitamin D3) 2,000 Unit Cap PO SCH (07:35)
[2023-01-07] MEDS: Furosemide 20 MG Tab PO SCH (07:35)
[2023-01-07] MEDS: atorvaSTATin 20 MG Tab PO SCH (19:41)
[2023-01-07] MEDS: traMADol 50 MG Tab PO PRN (19:42)
[2023-01-08] MEDS: Acetaminophen 500 MG Tab PO SCH ×3 (06:09→19:50)
[2023-01-08] MEDS: Levothyroxine 50 MCG Tab PO SCH (07:22)
[2023-01-08] MEDS: Furosemide 20 MG Tab PO SCH (07:31)
[2023-01-08] MEDS: Cholecalciferol (Vitamin D3) 2,000 Unit Cap PO SCH (07:31)
[2023-01-08] MEDS: Ciprofloxacin 250 MG Tab PO SCH ×2 (07:31→19:50)
[2023-01-08] MEDS: Docusate Sodium 100 MG Cap PO SCH (07:31)
[2023-01-08] MEDS: Ascorbic Acid 500 MG Tab PO SCH (07:32)
[2023-01-08] MEDS: Amiodarone 200 MG Tab PO SCH (07:32)
[2023-01-08] MEDS: Apixaban 2.5 MG Tab PO SCH (07:32)
[2023-01-08] MEDS: traMADol 50 MG Tab PO PRN (14:48)
[2023-01-08] MEDS: atorvaSTATin 20 MG Tab PO SCH (19:50)
[2023-01-09] MEDS: Furosemide 20 MG Tab PO SCH (07:45)
[2023-01-09] MEDS: Amiodarone 200 MG Tab PO SCH (07:46)
[2023-01-09] MEDS: Cholecalciferol (Vitamin D3) 2,000 Unit Cap PO SCH (07:46)
[2023-01-09] MEDS: Levothyroxine 50 MCG Tab PO SCH (07:46)
[2023-01-09] MEDS: Ciprofloxacin 250 MG Tab PO SCH ×2 (07:46→20:00)
[2023-01-09] MEDS: Ascorbic Acid 500 MG Tab PO SCH (07:46)
[2023-01-09] MEDS: Apixaban 2.5 MG Tab PO SCH (07:47)
[2023-01-09] MEDS: Docusate Sodium 100 MG Cap PO SCH (07:47)
[2023-01-09] MEDS: Acetaminophen 500 MG Tab PO SCH ×4 (07:47→20:00)
[2023-01-09] MEDS ORDERED: Acetaminophen 500 MG Tab ONE (19:57)
[2023-01-09] MEDS: atorvaSTATin 20 MG Tab PO SCH (20:00)
[2023-01-10] MEDS: Apixaban 2.5 MG Tab PO SCH (07:12)
[2023-01-10] MEDS: Levothyroxine 50 MCG Tab PO SCH (07:12)
[2023-01-10] MEDS: Docusate Sodium 100 MG Cap PO SCH (07:12)
[2023-01-10] MEDS: Ciprofloxacin 250 MG Tab PO SCH ×2 (07:12→20:08)
[2023-01-10] MEDS: Acetaminophen 500 MG Tab PO SCH ×3 (07:13→20:08)
[2023-01-10] MEDS: Amiodarone 200 MG Tab PO SCH (07:13)
[2023-01-10] MEDS: Cholecalciferol (Vitamin D3) 2,000 Unit Cap PO SCH (07:13)
[2023-01-10] MEDS: Ascorbic Acid 500 MG Tab PO SCH (07:13)
[2023-01-10] MEDS: Furosemide 20 MG Tab PO SCH (07:13)
[2023-01-10] MEDS: atorvaSTATin 20 MG Tab PO SCH (20:08)
[2023-01-11] MEDS: traMADol 50 MG Tab PO PRN (03:16)
[2023-01-11] MEDS: Levothyroxine 50 MCG Tab PO SCH (07:18)
[2023-01-11] MEDS: Apixaban 2.5 MG Tab PO SCH (12:58)
[2023-01-11] MEDS: Cholecalciferol (Vitamin D3) 2,000 Unit Cap PO SCH (12:58)
[2023-01-11] MEDS: Docusate Sodium 100 MG Cap PO SCH (12:58)
[2023-01-11] MEDS: Furosemide 20 MG Tab PO SCH (12:58)
[2023-01-11] MEDS: Ciprofloxacin 250 MG Tab PO SCH ×2 (12:59→19:42)
[2023-01-11] MEDS: Amiodarone 200 MG Tab PO SCH (12:59)
[2023-01-11] MEDS: Ascorbic Acid 500 MG Tab PO SCH (12:59)
[2023-01-11] MEDS: Acetaminophen 500 MG Tab PO SCH ×3 (13:00→19:42)
[2023-01-11] MEDS: atorvaSTATin 20 MG Tab PO SCH (19:42)
[2023-01-12] MEDS: Levothyroxine 50 MCG Tab PO SCH (07:41)
[2023-01-12] MEDS: Ascorbic Acid 500 MG Tab PO SCH (08:10)
[2023-01-12] MEDS: Ciprofloxacin 250 MG Tab PO SCH ×2 (08:10→19:20)
[2023-01-12] MEDS: Furosemide 20 MG Tab PO SCH (08:10)
[2023-01-12] MEDS: Docusate Sodium 100 MG Cap PO SCH (08:10)
[2023-01-12] MEDS: Apixaban 2.5 MG Tab PO SCH (08:10)
[2023-01-12] MEDS: Acetaminophen 500 MG Tab PO SCH ×3 (08:10→19:19)
[2023-01-12] MEDS: Amiodarone 200 MG Tab PO SCH (08:11)
[2023-01-12] MEDS: Cholecalciferol (Vitamin D3) 2,000 Unit Cap PO SCH (08:11)
[2023-01-12] MEDS: atorvaSTATin 20 MG Tab PO SCH (19:20)
[2023-01-12] MEDS: traMADol 50 MG Tab PO PRN (19:20)
[2023-01-13] MEDS: Amiodarone 200 MG Tab PO SCH (07:23)
[2023-01-13] MEDS: Docusate Sodium 100 MG Cap PO SCH (07:24)
[2023-01-13] MEDS: Furosemide 20 MG Tab PO SCH (07:24)
[2023-01-13] MEDS: Acetaminophen 500 MG Tab PO SCH ×3 (07:24→19:40)
[2023-01-13] MEDS: Apixaban 2.5 MG Tab PO SCH (07:24)
[2023-01-13] MEDS: Ascorbic Acid 500 MG Tab PO SCH (07:24)
[2023-01-13] MEDS: Cholecalciferol (Vitamin D3) 2,000 Unit Cap PO SCH (07:24)
[2023-01-13] MEDS: Levothyroxine 50 MCG Tab PO SCH (07:24)
[2023-01-13] MEDS: traMADol 50 MG Tab PO PRN (19:41)
[2023-01-13] MEDS: atorvaSTATin 20 MG Tab PO SCH (19:43)
[2023-01-14] MEDS: Amiodarone 200 MG Tab PO SCH (07:27)
[2023-01-14] MEDS: Docusate Sodium 100 MG Cap PO SCH (07:27)
[2023-01-14] MEDS: Acetaminophen 500 MG Tab PO SCH ×3 (07:27→19:11)
[2023-01-14] MEDS: Furosemide 20 MG Tab PO SCH (07:27)
[2023-01-14] MEDS: Cholecalciferol (Vitamin D3) 2,000 Unit Cap PO SCH (07:27)
[2023-01-14] MEDS: Levothyroxine 50 MCG Tab PO SCH (07:27)
[2023-01-14] MEDS: Ascorbic Acid 500 MG Tab PO SCH (07:27)
[2023-01-14] MEDS: Apixaban 2.5 MG Tab PO SCH (07:27)
[2023-01-14] MEDS: atorvaSTATin 20 MG Tab PO SCH (19:11)
[2023-01-15 07:33] VITALS: BP 129/64; PULSE 63
[2023-01-15] MEDS: Docusate Sodium 100 MG Cap PO SCH (07:51)
[2023-01-15] MEDS: Amiodarone 200 MG Tab PO SCH (07:51)
[2023-01-15] MEDS: Apixaban 2.5 MG Tab PO SCH (07:51)
[2023-01-15] MEDS: Furosemide 20 MG Tab PO SCH (07:51)
[2023-01-15] MEDS: Ascorbic Acid 500 MG Tab PO SCH (07:52)
[2023-01-15] MEDS: Cholecalciferol (Vitamin D3) 2,000 Unit Cap PO SCH (07:52)
[2023-01-15] MEDS: Levothyroxine 50 MCG Tab PO SCH (07:52)
[2023-01-15] MEDS: Acetaminophen 500 MG Tab PO SCH (07:52)
== END 2023-01-15 11:26 | DRG 560 ==
LOC: LB.MS 18:57 → UNDOADMIN 19:00 → LB.MS 19:00
PROVIDERS: ADMIT Surgery; ATTEND Surgery
DX: S42.202D Unspecified fracture of upper end of left humerus, subsequent encounter for fracture with routine healing (principal); I48.20 Chronic atrial fibrillation, unspecified; I50.32 Chronic diastolic (congestive) heart failure; N39.0 Urinary tract infection, site not specified; R53.81 Other malaise; E03.9 Hypothyroidism, unspecified; I25.10 Atherosclerotic heart disease of native coronary artery without angina pectoris; I11.0 Hypertensive heart disease with heart failure; K21.9 Gastro-esophageal reflux disease without esophagitis; M19.90 Unspecified osteoarthritis, unspecified site; G89.29 Other chronic pain; M54.9 Dorsalgia, unspecified; G43.909 Migraine, unspecified, not intractable, without status migrainosus; F41.9 Anxiety disorder, unspecified; F32.A Depression, unspecified; Z96.649 Presence of unspecified artificial hip joint; Z96.659 Presence of unspecified artificial knee joint; L40.9 Psoriasis, unspecified; E78.5 Hyperlipidemia, unspecified; Z86.718 Personal history of other venous thrombosis and embolism; Z98.890 Other specified postprocedural states; Z79.01 Long term (current) use of anticoagulants; Z79.899 Other long term (current) drug therapy; Z88.0 Allergy status to penicillin; Z88.2 Allergy status to sulfonamides; Z88.8 Allergy status to other drugs, medicaments and biological substances; Z91.040 Latex allergy status; Z90.49 Acquired absence of other specified parts of digestive tract; Z79.890 Hormone replacement therapy
CPT/HCPCS: 36415; 51701; 51702; 51798; 73030-LT; 80048; 81001; 85027; 86580; 87086; 97110-GO; 97110-GP; 97161-GP; 97165-GO; 97530-GO; 97530-GP; 97535-GO; A9270-GY; U0002

== ENCOUNTER 2023-04-08 10:25 | Emergency (ER) | payer MEDICARE ==
[2023-04-08] MEDS: Albuterol/Ipratropium 3.0-0.5 MG/3 ML Neb Soln NEB ONE (10:55)
[2023-04-08 11:21] LABS: BASOPHILS ABSOLUTE AUTO 0.02 K/uL (0.02-0.10); BASOPHILS PERCENT AUTO 0.4 % (0.0-0.5); EOSINOPHILS ABSOLUTE AUTO 0.28 K/uL (0.04-0.40); EOSINOPHILS PERCENT AUTO 6.2 % (1.0-5.0); HEMATOCRIT 39.5 % (37.0-47.0); HEMOGLOBIN 12.7 g/dL (11.5-16.5); LYMPHOCYTES ABSOLUTE AUTO 0.59 K/uL (1.50-4.00); LYMPHOCYTES PERCENT AUTO 13.1 % (20.0-40.0); MEAN CORPUSCULAR HEMOGLOBIN 31.8 pg (27.0-32.0); MEAN CORPUSCULAR HGB CONC 32.2 g/dL (31.0-35.0); MEAN CORPUSCULAR VOLUME 99 fL (76-96); MEAN PLATELET VOLUME 11.4 fL (6.0-10.0); MONOCYTES ABSOLUTE AUTO 0.37 K/uL (0.20-0.80); MONOCYTES PERCENT AUTO 8.2 % (3.0-10.0); NEUTROPHILS ABSOLUTE AUTO 3.25 K/uL (2.00-7.50); NEUTROPHILS PERCENT AUTO 72.1 % (45.0-70.0); PLATELET COUNT,PLT 136 K/uL (150-500); RED BLOOD CELL COUNT 3.99 M/uL (3.80-5.80); RED CELL DISTRIBUTION WIDTH 14.4 % (11.0-16.0); WHITE BLOOD CELL COUNT,WBC 4.5 K/uL (4.0-11.0)
[2023-04-08 11:48] LABS: ALBUMIN 3.2 g/dL (3.4-5.0); ANION GAP 11.1 mmol/L (5.0-15.0); BILIRUBIN TOTAL 1.5 mg/dL (0.0-1.0); BUN/CREATININE RATIO 19.1 (6-25); CALCIUM 8.8 mg/dL (8.5-10.1); CARBON DIOXIDE,CO2 31.5 mmol/L (21.0-32.0); CREATININE 1.41 mg/dL (0.55-1.02); EST CRCL DRUG DOSING (CG) 29.43 mL/min; POTASSIUM,K 4.6 mmol/L (3.5-5.1); PROTEIN TOTAL,TP 6.5 g/dL (6.4-8.2)
[2023-04-08 19:28] VITALS: PULSE 88
[2023-04-08 19:30] VITALS: BP 126/68
== END 2023-04-08 14:08 | disposition home or self-care (01) ==
LOC: LB.ED 10:25
DX: J18.9 Pneumonia, unspecified organism (principal); I11.0 Hypertensive heart disease with heart failure; I50.9 Heart failure, unspecified; K21.9 Gastro-esophageal reflux disease without esophagitis; E03.9 Hypothyroidism, unspecified; E78.00 Pure hypercholesterolemia, unspecified; I25.10 Atherosclerotic heart disease of native coronary artery without angina pectoris; Z88.2 Allergy status to sulfonamides; Z88.0 Allergy status to penicillin; Z91.040 Latex allergy status; Z88.5 Allergy status to narcotic agent; Z88.8 Allergy status to other drugs, medicaments and biological substances; Z79.01 Long term (current) use of anticoagulants; Z79.899 Other long term (current) drug therapy
CPT/HCPCS: 36415; 71045; 80053; 83605; 83880; 85025; 94640; 99284; J7620

== ENCOUNTER 2023-04-12 12:41 | Emergency (ER) | payer MEDICARE ==
[2023-04-12] MEDS ORDERED: Albuterol/Ipratropium 3.0-0.5 MG/3 ML Neb Soln NEB ONE (12:55)
[2023-04-12 13:18] LABS: BASOPHILS ABSOLUTE AUTO 0.01 K/uL (0.02-0.10); BASOPHILS PERCENT AUTO 0.2 % (0.0-0.5); EOSINOPHILS ABSOLUTE AUTO 0.29 K/uL (0.04-0.40); EOSINOPHILS PERCENT AUTO 7.1 % (1.0-5.0); HEMOGLOBIN 13.4 g/dL (11.5-16.5); LYMPHOCYTES PERCENT AUTO 17.1 % (20.0-40.0); MEAN CORPUSCULAR HEMOGLOBIN 31.4 pg (27.0-32.0); MEAN CORPUSCULAR HGB CONC 31.9 g/dL (31.0-35.0); MEAN CORPUSCULAR VOLUME 98 fL (76-96); MEAN PLATELET VOLUME 11.2 fL (6.0-10.0); MONOCYTES ABSOLUTE AUTO 0.36 K/uL (0.20-0.80); MONOCYTES PERCENT AUTO 8.8 % (3.0-10.0); NEUTROPHILS ABSOLUTE AUTO 2.73 K/uL (2.00-7.50); NEUTROPHILS PERCENT AUTO 66.8 % (45.0-70.0); PLATELET COUNT,PLT 145 K/uL (150-500); RED BLOOD CELL COUNT 4.27 M/uL (3.80-5.80); RED CELL DISTRIBUTION WIDTH 14.7 % (11.0-16.0); WHITE BLOOD CELL COUNT,WBC 4.1 K/uL (4.0-11.0)
[2023-04-12 13:43] LABS: ALBUMIN 3.4 g/dL (3.4-5.0); ANION GAP 11.1 mmol/L (5.0-15.0); BILIRUBIN TOTAL 1.3 mg/dL (0.0-1.0); BUN/CREATININE RATIO 17.4 (6-25); CALCIUM 8.8 mg/dL (8.5-10.1); CARBON DIOXIDE,CO2 30.6 mmol/L (21.0-32.0); CREATININE 1.32 mg/dL (0.55-1.02); EST CRCL DRUG DOSING (CG) 31.43 mL/min; POTASSIUM,K 4.7 mmol/L (3.5-5.1); PROTEIN TOTAL,TP 6.8 g/dL (6.4-8.2)
[2023-04-12] MEDS ORDERED: Furosemide 40 MG Tab PO ONE (13:51)
[2023-04-12 14:47] VITALS: BP 127/71; PULSE 88
== END 2023-04-12 14:25 | disposition home or self-care (01) ==
LOC: LB.ED 12:41
DX: I50.9 Heart failure, unspecified (principal); K21.9 Gastro-esophageal reflux disease without esophagitis; E03.9 Hypothyroidism, unspecified; Z20.822 Contact with and (suspected) exposure to COVID-19; Z79.01 Long term (current) use of anticoagulants; Z79.899 Other long term (current) drug therapy; Z88.1 Allergy status to other antibiotic agents; Z88.2 Allergy status to sulfonamides; Z91.040 Latex allergy status; Z91.048 Other nonmedicinal substance allergy status; Z88.8 Allergy status to other drugs, medicaments and biological substances
CPT/HCPCS: 36415; 71045; 80053; 83735; 83880; 85025; 94640; 99285; A9270-GY; J7620; U0002

== ENCOUNTER 2023-09-15 09:43 | Emergency (ER) | payer MEDICARE ==
[2023-09-15 10:17] LABS: BASOPHILS ABSOLUTE AUTO 0.02 K/uL (0.02-0.10); BASOPHILS PERCENT AUTO 0.4 % (0.0-0.5); EOSINOPHILS ABSOLUTE AUTO 0.26 K/uL (0.04-0.40); EOSINOPHILS PERCENT AUTO 5.8 % (1.0-5.0); HEMATOCRIT 41.9 % (37.0-47.0); HEMOGLOBIN 14.5 g/dL (11.5-16.5); LYMPHOCYTES ABSOLUTE AUTO 0.51 K/uL (1.50-4.00); LYMPHOCYTES PERCENT AUTO 11.4 % (20.0-40.0); MEAN CORPUSCULAR HEMOGLOBIN 32.3 pg (27.0-32.0); MEAN CORPUSCULAR HGB CONC 34.6 g/dL (31.0-35.0); MEAN CORPUSCULAR VOLUME 93 fL (76-96); MEAN PLATELET VOLUME 9.5 fL (6.0-10.0); MONOCYTES ABSOLUTE AUTO 0.39 K/uL (0.20-0.80); MONOCYTES PERCENT AUTO 8.7 % (3.0-10.0); NEUTROPHILS ABSOLUTE AUTO 3.31 K/uL (2.00-7.50); NEUTROPHILS PERCENT AUTO 73.7 % (45.0-70.0); PLATELET COUNT,PLT 225 K/uL (150-500); RED BLOOD CELL COUNT 4.49 M/uL (3.80-5.80); RED CELL DISTRIBUTION WIDTH 13.9 % (11.0-16.0); WHITE BLOOD CELL COUNT,WBC 4.5 K/uL (4.0-11.0)
[2023-09-15 10:40] LABS: A/G RATIO 0.8 (0.8-2.0); ALANINE AMINOTRANSFERASE,ALT 16 U/L (12-78); ALKALINE PHOSPHATASE 135 U/L (46-116); ANION GAP 8.1 mmol/L (5.0-15.0); ASPARTATE AMNIOTRANSFERASE,AST 19 U/L (15-37); BILIRUBIN TOTAL 1.4 mg/dL (0.0-1.0); BLOOD UREA NITROGEN,BUN 26 mg/dL (8-26); BUN/CREATININE RATIO 22.4 (6-25); CALCIUM 8.8 mg/dL (8.5-10.1); CARBON DIOXIDE,CO2 29.9 mmol/L (21.0-32.0); CHLORIDE,CL 100 mmol/L (98-107); CREATININE 1.16 mg/dL (0.55-1.02); ESTIMATED GFR 46 mL/min (>60); GLUCOSE RANDOM 86 mg/dL (74-100); MAGNESIUM 2.1 mg/dL (1.8-2.4); PROTEIN TOTAL,TP 6.8 g/dL (6.4-8.2); SODIUM,NA 134 mmol/L (136-145)
[2023-09-15 10:56] LABS: INFLUENZA A NAA NEGATIVE (NEGATIVE); INFLUENZA B NAA NEGATIVE (NEGATIVE); RESPIRATORY SYNCYTIAL VIR NAA NEGATIVE (NEGATIVE)
[2023-09-15 10:59] LABS: CORONAVIRUS COVID-19 NAA NEGATIVE (NEGATIVE)
[2023-09-15 11:05] LABS: APPEARANCE,URINE CLEAR (CLEAR); BILIRUBIN,URINE NEGATIVE (NEGATIVE); COLOR,URINE YELLOW; GLUCOSE,URINE NEGATIVE (NEGATIVE); KETONES,URINE NEGATIVE (NEGATIVE); LEUKOCYTE ESTERASE,URINE NEGATIVE (NEGATIVE); NITRITE,URINE POSITIVE (NEGATIVE); OCCULT BLOOD,URINE TRACE-INTACT (NEGATIVE); PROTEIN,URINE NEGATIVE (NEGATIVE); UROBILINOGEN,URINE 0.2 E.U./dL (0.2-1.0)
[2023-09-15 11:10] LABS: BACTERIA,URINE FEW /HPF; SQUAMOUS EPITHELIAL CELLS,UR FEW /HPF
[2023-09-15] MEDS ORDERED: Furosemide 20 MG Tab PO ONE (11:34)
[2023-09-15] MEDS ORDERED: Furosemide 40 MG/4 ML VIAL ONE (11:39)
[2023-09-15 13:16] VITALS: BP 95/65; PULSE 78
== END 2023-09-15 12:30 | disposition home or self-care (01) ==
LOC: LB.ED 09:43
DX: I48.91 Unspecified atrial fibrillation (principal); I50.9 Heart failure, unspecified; E78.00 Pure hypercholesterolemia, unspecified; K21.9 Gastro-esophageal reflux disease without esophagitis; E03.9 Hypothyroidism, unspecified; Z79.01 Long term (current) use of anticoagulants; Z79.899 Other long term (current) drug therapy; Z88.0 Allergy status to penicillin; Z88.1 Allergy status to other antibiotic agents; Z88.5 Allergy status to narcotic agent; Z88.8 Allergy status to other drugs, medicaments and biological substances; Z91.040 Latex allergy status; Z91.048 Other nonmedicinal substance allergy status
CPT/HCPCS: 0241U; 36415; 71045; 80053; 81001; 83735; 83880; 85025; 87086; 93005; 93010; 99284; 99285; A9270-GY

== ENCOUNTER 2024-05-17 10:48 | Observation (INO) | payer MEDICARE ==
[2024-05-17] MEDS ORDERED: Sodium Chloride 0.9% 10 ML Syringe FLUSH PRN (11:18)
[2024-05-17 11:41] LABS: HEMATOCRIT 44.5 % (37.0-47.0); HEMOGLOBIN 14.4 g/dL (11.5-16.5); MEAN CORPUSCULAR HEMOGLOBIN 33.4 pg (27.0-32.0); MEAN CORPUSCULAR HGB CONC 32.4 g/dL (31.0-35.0); MEAN PLATELET VOLUME 10.8 fL (6.0-10.0); RED BLOOD CELL COUNT 4.31 M/uL (3.80-5.80); RED CELL DISTRIBUTION WIDTH 13.3 % (11.0-16.0); WHITE BLOOD CELL COUNT,WBC 4.2 K/uL (4.0-11.0)
[2024-05-17 12:09] LABS: A/G RATIO 0.8 (0.8-2.0); ALANINE AMINOTRANSFERASE,ALT 12 U/L (12-78); ALBUMIN 3.1 g/dL (3.4-5.0); ALKALINE PHOSPHATASE 126 U/L (46-116); ANION GAP 8.6 mmol/L (5.0-15.0); ASPARTATE AMNIOTRANSFERASE,AST 18 U/L (15-37); BILIRUBIN TOTAL 1.7 mg/dL (0.0-1.0); BLOOD UREA NITROGEN,BUN 27 mg/dL (8-26); BUN/CREATININE RATIO 25.5 (6-25); CARBON DIOXIDE,CO2 30.5 mmol/L (21.0-32.0); CHLORIDE,CL 105 mmol/L (98-107); CREATININE 1.06 mg/dL (0.55-1.02); ESTIMATED GFR 51 mL/min (>60); GLUCOSE RANDOM 102 mg/dL (74-100); POTASSIUM,K 4.1 mmol/L (3.5-5.1); PRO B-TYPE NATRIUR PEPT,BNPPRO 11412 pg/mL (0-450); PROTEIN TOTAL,TP 6.9 g/dL (6.4-8.2); SODIUM,NA 140 mmol/L (136-145)
[2024-05-17 12:13] LABS: TROPONIN I HIGH SENSITIVITY 1678.5 pg/ml (<=60.4)
[2024-05-17] MEDS: Furosemide 40 MG/4 ML VIAL IVPUSH ONE (12:30)
[2024-05-17] MEDS: Furosemide 40 MG/4 ML VIAL ONE (12:33)
[2024-05-17] MEDS ORDERED: Acetaminophen 500 MG Tab PO PRN (13:31)
[2024-05-17] MEDS ORDERED: Furosemide 20 MG Tab PO SCH (16:00)
[2024-05-17] MEDS: Furosemide 20 MG Tab PO SCH (18:28)
[2024-05-17] MEDS: Apixaban 5 MG Tab ** OWN MED PO SCH (20:11)
[2024-05-17] MEDS: atorvaSTATin 20 MG Tab ** OWN MED PO SCH (20:11)
[2024-05-18] MEDS: Levothyroxine 50 MCG Tab ** OWN MED PO SCH (07:10)
[2024-05-18] MEDS ORDERED: Cholecalciferol (Vitamin D3) 2,000 Unit Cap PO SCH (08:00)
[2024-05-18] MEDS ORDERED: Levothyroxine 25 MCG Tab PO SCH (08:00)
[2024-05-18] MEDS ORDERED: Furosemide 20 MG Tab PO SCH (08:00)
[2024-05-18] MEDS: Furosemide 20 MG Tab ** OWN MED PO SCH (09:21)
[2024-05-18] MEDS: Docusate Sodium 100 MG Cap PO SCH (09:50)
[2024-05-18] MEDS: LOSARTAN 25 MG PO SCH (09:50)
[2024-05-18] MEDS: EMPAGLIFLOZIN 10 MG PO SCH (09:51)
[2024-05-18] MEDS: Cholecalciferol (Vitamin D3) 25 MCG Tab PO SCH (09:51)
[2024-05-18 11:26] LABS: INFLUENZA A NAA NEGATIVE (NEGATIVE); INFLUENZA B NAA NEGATIVE (NEGATIVE); RESPIRATORY SYNCYTIAL VIR NAA NEGATIVE (NEGATIVE)
[2024-05-18 11:29] LABS: CORONAVIRUS COVID-19 NAA NEGATIVE (NEGATIVE)
[2024-05-18 13:18] VITALS: BP 89/51; PULSE 85
[2024-05-19] MEDS ORDERED: Montelukast 10 MG Tab***OWN MED PO SCH (08:00)
[2024-05-19] MEDS ORDERED: METOPROLOL SUCCINATE 50 MG PO SCH (08:00)
== END 2024-05-18 14:35 | disposition home or self-care (01) ==
LOC: LB.ED 10:48 → LB.MS 13:13 → INTOOBSV 13:13
PROVIDERS: ADMIT Surgery; ATTEND Surgery
DX: I50.43 Acute on chronic combined systolic (congestive) and diastolic (congestive) heart failure (principal); I48.91 Unspecified atrial fibrillation; E78.00 Pure hypercholesterolemia, unspecified; K21.9 Gastro-esophageal reflux disease without esophagitis; E03.9 Hypothyroidism, unspecified; R09.02 Hypoxemia; R77.8 Other specified abnormalities of plasma proteins; Z79.01 Long term (current) use of anticoagulants; Z79.899 Other long term (current) drug therapy; Z79.890 Hormone replacement therapy; Z88.8 Allergy status to other drugs, medicaments and biological substances; Z88.2 Allergy status to sulfonamides; Z91.040 Latex allergy status
CPT/HCPCS: 0241U; 36415; 71045; 80053; 83880; 84484; 85027; 93005; 96374; 99285-25; A9270-GY; G0378; J1940

== ENCOUNTER 2024-07-18 22:21 | Emergency (ER) | payer MEDICARE ==
[2024-07-18] MEDS: LORazepam 2 MG/ML SDV IM ONE (22:43)
[2024-07-18] MEDS: Sodium Chloride 0.9% 1,000 ML IV ONE (22:43)
[2024-07-18] MEDS: LORazepam 2 MG/ML SDV IVPUSH ONE (22:43)
[2024-07-18 23:18] LABS: BASOPHILS ABSOLUTE AUTO 0.01 K/uL (0.02-0.10); BASOPHILS PERCENT AUTO 0.2 % (0.0-0.5); EOSINOPHILS ABSOLUTE AUTO 0.24 K/uL (0.04-0.40); HEMATOCRIT 43.6 % (37.0-47.0); HEMOGLOBIN 14.2 g/dL (11.5-16.5); LYMPHOCYTES ABSOLUTE AUTO 1.12 K/uL (1.50-4.00); LYMPHOCYTES PERCENT AUTO 23.4 % (20.0-40.0); MEAN CORPUSCULAR HEMOGLOBIN 32.6 pg (27.0-32.0); MEAN CORPUSCULAR HGB CONC 32.6 g/dL (31.0-35.0); MEAN CORPUSCULAR VOLUME 100 fL (76-96); MEAN PLATELET VOLUME 10.6 fL (6.0-10.0); MONOCYTES ABSOLUTE AUTO 0.45 K/uL (0.20-0.80); MONOCYTES PERCENT AUTO 9.4 % (3.0-10.0); NEUTROPHILS ABSOLUTE AUTO 2.97 K/uL (2.00-7.50); PLATELET COUNT,PLT 140 K/uL (150-500); RED BLOOD CELL COUNT 4.36 M/uL (3.80-5.80); RED CELL DISTRIBUTION WIDTH 14.8 % (11.0-16.0); WHITE BLOOD CELL COUNT,WBC 4.8 K/uL (4.0-11.0)
[2024-07-18 23:35] LABS: INR 1.2 (1.0-3.5); PTT,PARTIAL THROMBOPLSTIN TIME 28.6 SECONDS (24.4-33.2)
[2024-07-18 23:40] LABS: A/G RATIO 0.9 (0.8-2.0); ALANINE AMINOTRANSFERASE,ALT 10 U/L (12-78); ALBUMIN 3.1 g/dL (3.4-5.0); ALKALINE PHOSPHATASE 96 U/L (46-116); ANION GAP 11.7 mmol/L (5.0-15.0); ASPARTATE AMNIOTRANSFERASE,AST 16 U/L (15-37); BILIRUBIN TOTAL 1.8 mg/dL (0.0-1.0); BLOOD UREA NITROGEN,BUN 28 mg/dL (8-26); BUN/CREATININE RATIO 25.5 (6-25); CARBON DIOXIDE,CO2 28.8 mmol/L (21.0-32.0); CHLORIDE,CL 108 mmol/L (98-107); ESTIMATED GFR 49 mL/min (>60); GLUCOSE RANDOM 109 mg/dL (74-100); POTASSIUM,K 4.5 mmol/L (3.5-5.1); PROTEIN TOTAL,TP 6.4 g/dL (6.4-8.2); SODIUM,NA 144 mmol/L (136-145)
[2024-07-18 23:41] LABS: PROTHROMBIN TIME 12.2 sec (9.0-11.5)
[2024-07-18 23:46] LABS: MAGNESIUM 2.3 mg/dL (1.8-2.4); PRO B-TYPE NATRIUR PEPT,BNPPRO 9846 pg/mL (0-450)
[2024-07-18 23:48] LABS: TROPONIN I HIGH SENSITIVITY 2050.4 pg/ml (<=60.4)
[2024-07-18 23:50] LABS: C-REACTIVE PROTEIN < 5.0 mg/L (<5.0)
[2024-07-19] MEDS ORDERED: Sodium Chloride 0.9% 10 ML Syringe FLUSH PRN (00:25)
[2024-07-19 02:06] VITALS: BP 100/62; PULSE 75
== END 2024-07-19 02:32 ==
LOC: LB.ED 22:21
DX: R40.1 Stupor (principal); I50.9 Heart failure, unspecified; I48.91 Unspecified atrial fibrillation; K21.9 Gastro-esophageal reflux disease without esophagitis; Z90.49 Acquired absence of other specified parts of digestive tract; Z90.710 Acquired absence of both cervix and uterus; Z79.899 Other long term (current) drug therapy; Z79.01 Long term (current) use of anticoagulants; Z88.8 Allergy status to other drugs, medicaments and biological substances; Z91.048 Other nonmedicinal substance allergy status; Z88.0 Allergy status to penicillin; Z88.2 Allergy status to sulfonamides; Z91.040 Latex allergy status; Z88.1 Allergy status to other antibiotic agents; Z88.5 Allergy status to narcotic agent
CPT/HCPCS: 36415; 51702; 70450; 71045; 80053; 83605; 83735; 83880; 84145; 84484; 85025; 85379; 85610; 85730; 86140; 93005; 96361; 96374; 99285; J2060; J7030; A0425; A0428; A0429

== ENCOUNTER 2024-07-26 10:52 | Emergency (ER) | payer MEDICARE ==
[2024-07-26 11:16] LABS: BASOPHILS ABSOLUTE AUTO 0.02 K/uL (0.02-0.10); BASOPHILS PERCENT AUTO 0.4 % (0.0-0.5); EOSINOPHILS ABSOLUTE AUTO 0.15 K/uL (0.04-0.40); HEMATOCRIT 46.1 % (37.0-47.0); HEMOGLOBIN 14.9 g/dL (11.5-16.5); LYMPHOCYTES ABSOLUTE AUTO 0.73 K/uL (1.50-4.00); LYMPHOCYTES PERCENT AUTO 14.7 % (20.0-40.0); MEAN CORPUSCULAR HEMOGLOBIN 32.5 pg (27.0-32.0); MEAN CORPUSCULAR HGB CONC 32.3 g/dL (31.0-35.0); MEAN CORPUSCULAR VOLUME 101 fL (76-96); MEAN PLATELET VOLUME 11.3 fL (6.0-10.0); NEUTROPHILS ABSOLUTE AUTO 3.68 K/uL (2.00-7.50); NEUTROPHILS PERCENT AUTO 73.9 % (45.0-70.0); PLATELET COUNT,PLT 137 K/uL (150-500); RED BLOOD CELL COUNT 4.58 M/uL (3.80-5.80); RED CELL DISTRIBUTION WIDTH 14.9 % (11.0-16.0)
[2024-07-26 11:39] LABS: ALBUMIN 3.5 g/dL (3.4-5.0); ANION GAP 9.4 mmol/L (5.0-15.0); BILIRUBIN TOTAL 2.3 mg/dL (0.0-1.0); BUN/CREATININE RATIO 21.8 (6-25); CALCIUM 9.6 mg/dL (8.5-10.1); CARBON DIOXIDE,CO2 36.5 mmol/L (21.0-32.0); CREATININE 1.42 mg/dL (0.55-1.02); EST CRCL DRUG DOSING (CG) 26.13 mL/min; POTASSIUM,K 3.9 mmol/L (3.5-5.1); PROTEIN TOTAL,TP 7.1 g/dL (6.4-8.2)
[2024-07-26 11:44] LABS: APPEARANCE,URINE CLEAR (CLEAR); BILIRUBIN,URINE NEGATIVE (NEGATIVE); COLOR,URINE YELLOW; GLUCOSE,URINE 250 mg/dL (NEGATIVE); KETONES,URINE NEGATIVE (NEGATIVE); LEUKOCYTE ESTERASE,URINE NEGATIVE (NEGATIVE); NITRITE,URINE NEGATIVE (NEGATIVE); OCCULT BLOOD,URINE MODERATE (NEGATIVE); PH,URINE 6.5 (5.0-8.0); PROTEIN,URINE 30 mg/dL (NEGATIVE); UROBILINOGEN,URINE 0.2 E.U./dL (0.2-1.0)
[2024-07-26 11:45] LABS: SQUAMOUS EPITHELIAL CELLS,UR OCCASIONAL /HPF; WBC,URINE 0-5 /HPF
[2024-07-26 11:45] LABS: MAGNESIUM 2.4 mg/dL (1.8-2.4)
[2024-07-26 11:52] LABS: INFLUENZA A NAA NEGATIVE (NEGATIVE); INFLUENZA B NAA NEGATIVE (NEGATIVE); RESPIRATORY SYNCYTIAL VIR NAA NEGATIVE (NEGATIVE)
[2024-07-26 11:58] LABS: CORONAVIRUS COVID-19 NAA NEGATIVE (NEGATIVE)
[2024-07-26 17:47] VITALS: BP 111/53; PULSE 88
== END 2024-07-26 13:25 | disposition home or self-care (01) ==
LOC: LB.ED 10:52
DX: E86.0 Dehydration (principal); G47.34 Idiopathic sleep related nonobstructive alveolar hypoventilation; I50.9 Heart failure, unspecified; I48.91 Unspecified atrial fibrillation; K21.9 Gastro-esophageal reflux disease without esophagitis; Z90.49 Acquired absence of other specified parts of digestive tract; Z90.710 Acquired absence of both cervix and uterus; Z79.899 Other long term (current) drug therapy; Z79.01 Long term (current) use of anticoagulants; Z79.84 Long term (current) use of oral hypoglycemic drugs; Z91.040 Latex allergy status; Z91.048 Other nonmedicinal substance allergy status; Z88.5 Allergy status to narcotic agent; Z88.8 Allergy status to other drugs, medicaments and biological substances; Z88.0 Allergy status to penicillin; Z88.2 Allergy status to sulfonamides
CPT/HCPCS: 0241U; 36415; 71045; 80053; 81001; 83735; 83880; 85025; 99284; 99285

== ENCOUNTER 2024-07-27 11:45 | Inpatient (IN) | payer MEDICARE ==
[2024-07-27 12:39] LABS: HEMATOCRIT 43.8 % (37.0-47.0); HEMOGLOBIN 14.1 g/dL (11.5-16.5); MEAN CORPUSCULAR HEMOGLOBIN 32.3 pg (27.0-32.0); MEAN CORPUSCULAR HGB CONC 32.2 g/dL (31.0-35.0); MEAN PLATELET VOLUME 11.3 fL (6.0-10.0); RED BLOOD CELL COUNT 4.36 M/uL (3.80-5.80); RED CELL DISTRIBUTION WIDTH 14.8 % (11.0-16.0); WHITE BLOOD CELL COUNT,WBC 5.4 K/uL (4.0-11.0)
[2024-07-27 13:05] LABS: ANION GAP 8.1 mmol/L (5.0-15.0); BUN/CREATININE RATIO 21.5 (6-25); CALCIUM 9.1 mg/dL (8.5-10.1); CARBON DIOXIDE,CO2 34.9 mmol/L (21.0-32.0); CREATININE 1.3 mg/dL (0.55-1.02); EST CRCL DRUG DOSING (CG) 30.56 mL/min; MAGNESIUM 2.2 mg/dL (1.8-2.4); PHOSPHORUS 3.2 mg/dL (2.5-4.9)
[2024-07-27 13:19] LABS: INFLUENZA A NAA NEGATIVE (NEGATIVE); INFLUENZA B NAA NEGATIVE (NEGATIVE); RESPIRATORY SYNCYTIAL VIR NAA NEGATIVE (NEGATIVE)
[2024-07-27 13:28] LABS: CORONAVIRUS COVID-19 NAA NEGATIVE (NEGATIVE)
[2024-07-27] MEDS: Azithromycin 500 MG in Sodium Chloride 0.9% 250 ML IV ONE (15:14)
[2024-07-27] MEDS: Heparin Sodium 5,000 Units/ML Vial SUBCUT SCH (15:15)
[2024-07-27] MEDS: atorvaSTATin 20 MG Tab PO SCH (19:37)
[2024-07-27] MEDS ORDERED: Digoxin 500 MCG/2 ML Amp IVPUSH ONE (23:26)
[2024-07-28] MEDS: Pantoprazole 40 MG Tab.CR PO SCH (07:43)
[2024-07-28] MEDS: Cholecalciferol (Vitamin D3) 2,000 Unit Cap PO SCH (07:43)
[2024-07-28] MEDS: Montelukast 10 MG Tab PO SCH (07:44)
[2024-07-28] MEDS: Docusate Sodium 100 MG Cap PO SCH (07:44)
[2024-07-28] MEDS: Empagliflozin 10 MG Tab PO SCH (07:44)
[2024-07-28] MEDS: Metoprolol Succinate 50 MG Tab.ER PO SCH (07:44)
[2024-07-28] MEDS: Furosemide 20 MG Tab PO SCH (07:44)
[2024-07-28] MEDS: Levothyroxine 50 MCG Tab PO SCH (07:44)
[2024-07-28] MEDS ORDERED: Levothyroxine 25 MCG Tab PO SCH (08:00)
[2024-07-28] MEDS ORDERED: OMEPRAZOLE MAGNESIUM 20 MG PO SCH (08:00)
[2024-07-28] MEDS: Heparin Sodium 5,000 Units/ML Vial SUBCUT SCH (15:09)
[2024-07-28] MEDS: Azithromycin 250 MG in Sodium Chloride 0.9% 250 ML IV SCH (15:20)
[2024-07-28] MEDS: Menthol/Zinc Oxide Ointment 113 GM Tube TOP SCH (20:53)
[2024-07-29] MEDS: Acetaminophen 500 MG Tab PO PRN (02:20)
[2024-07-29 09:38] LABS: ANION GAP 7.6 mmol/L (5.0-15.0); BUN/CREATININE RATIO 18.5 (6-25); CALCIUM 9.1 mg/dL (8.5-10.1); CARBON DIOXIDE,CO2 34.4 mmol/L (21.0-32.0); CREATININE 1.24 mg/dL (0.55-1.02); EST CRCL DRUG DOSING (CG) 33.22 mL/min
[2024-07-30] MEDS: Hyaluronidase, Human Recomb. 150 Unit/ML Vial SUBCUT ONE (15:15)
[2024-07-30 20:47] LABS: APPEARANCE,URINE SLIGHTLY CLOUDY (CLEAR); COLOR,URINE YELLOW; GLUCOSE,URINE 500 mg/dL (NEGATIVE); KETONES,URINE NEGATIVE (NEGATIVE); PROTEIN,URINE 30 mg/dL (NEGATIVE)
[2024-07-30 20:48] LABS: BILIRUBIN,URINE NEGATIVE (NEGATIVE); LEUKOCYTE ESTERASE,URINE NEGATIVE (NEGATIVE); NITRITE,URINE NEGATIVE (NEGATIVE); OCCULT BLOOD,URINE MODERATE (NEGATIVE); RBC,URINE 20-30 /HPF
[2024-07-30 20:49] LABS: CALCIUM OXALATE CRYSTALS,URINE OCCASIONAL /HPF; HYALINE CASTS,URINE OCCASIONAL /HPF; SQUAMOUS EPITHELIAL CELLS,UR FEW /HPF; WBC,URINE NOT SEEN /HPF
[2024-07-31] MEDS: Polyethylene Glycol 3350 Powder 17 GM Packet PO PRN (11:12)
[2024-07-31] MEDS: Azithromycin 500 MG Vial ONE (13:44)
[2024-07-31] MEDS: Acetaminophen 325 MG Tab PO PRN (16:43)
[2024-08-01] MEDS: Polyethylene Glycol 3350 Powder 17 GM Packet PO PRN (07:18)
[2024-08-01 10:21] LABS: INFLUENZA A NAA NEGATIVE (NEGATIVE); INFLUENZA B NAA NEGATIVE (NEGATIVE); RESPIRATORY SYNCYTIAL VIR NAA NEGATIVE (NEGATIVE)
[2024-08-01 10:30] LABS: CORONAVIRUS COVID-19 NAA POSITIVE (NEGATIVE)
[2024-08-01] MEDS ORDERED: Nirmatrelvir/Ritonavir 300 MG/100 MG Dosepak PO SCH (10:45)
[2024-08-01] MEDS: cefTRIAXone 1 GM in Sodium Chloride 0.9% 50 ML IV SCH (11:08)
[2024-08-01] MEDS: Levofloxacin/Dextrose 5%-Water 750 MG in Levofloxacin/Dextrose 5%-Water 150 ML IV SCH (11:50)
[2024-08-01] MEDS: Bisacodyl 10 MG Supp RECTAL ONE (12:29)
[2024-08-01] MEDS: diphenhydrAMINE 50 MG/ML SDV IM ONE (13:16)
[2024-08-01] MEDS: Ibuprofen 400 MG Tab PO PRN (13:55)
[2024-08-01] MEDS: Azithromycin 500 MG in Sodium Chloride 0.9% 250 ML IV SCH (14:13)
[2024-08-02] MEDS: Albuterol/Ipratropium 3.0-0.5 MG/3 ML Neb Soln NEB PRN (02:09)
[2024-08-02] MEDS: guaiFENesin 600 MG Tab.ER PO SCH (02:10)
[2024-08-02] MEDS: Ascorbic Acid 500 MG Tab PO SCH (11:45)
[2024-08-02] MEDS: Zinc (Zinc Gluconate) 50 MG Tab PO SCH (11:45)
[2024-08-02] MEDS: Albuterol/Ipratropium 3.0-0.5 MG/3 ML Neb Soln NEB SCH (13:00)
[2024-08-02 14:17] LABS: HEMATOCRIT 42.1 % (37.0-47.0); HEMOGLOBIN 13.2 g/dL (11.5-16.5); MEAN CORPUSCULAR HEMOGLOBIN 31.8 pg (27.0-32.0); MEAN CORPUSCULAR HGB CONC 31.4 g/dL (31.0-35.0); MEAN PLATELET VOLUME 12.1 fL (6.0-10.0); RED BLOOD CELL COUNT 4.15 M/uL (3.80-5.80); RED CELL DISTRIBUTION WIDTH 15.1 % (11.0-16.0); WHITE BLOOD CELL COUNT,WBC 4.2 K/uL (4.0-11.0)
[2024-08-02 14:37] LABS: ANION GAP 11.4 mmol/L (5.0-15.0); BUN/CREATININE RATIO 19.2 (6-25); CALCIUM 8.8 mg/dL (8.5-10.1); CARBON DIOXIDE,CO2 33.4 mmol/L (21.0-32.0); CREATININE 1.56 mg/dL (0.55-1.02); EST CRCL DRUG DOSING (CG) 26.55 mL/min; MAGNESIUM 2.1 mg/dL (1.8-2.4); POTASSIUM,K 3.8 mmol/L (3.5-5.1)
[2024-08-02] MEDS: Lactobacillus Acidophilus/Lactobacillus Sporogenes (Probiotic) Tab PO SCH (18:41)
[2024-08-03] MEDS: Acetaminophen/Codeine 300-30 MG Tab PO PRN (14:41)
[2024-08-04 09:44] LABS: HEMATOCRIT 46.2 % (37.0-47.0); HEMOGLOBIN 14.3 g/dL (11.5-16.5); MEAN CORPUSCULAR HEMOGLOBIN 31.6 pg (27.0-32.0); MEAN PLATELET VOLUME 11.9 fL (6.0-10.0); RED BLOOD CELL COUNT 4.53 M/uL (3.80-5.80); RED CELL DISTRIBUTION WIDTH 15.4 % (11.0-16.0); WHITE BLOOD CELL COUNT,WBC 3.1 K/uL (4.0-11.0)
[2024-08-04 10:02] LABS: ANION GAP 13.9 mmol/L (5.0-15.0); BUN/CREATININE RATIO 21.7 (6-25); CALCIUM 8.8 mg/dL (8.5-10.1); CARBON DIOXIDE,CO2 32.7 mmol/L (21.0-32.0); CREATININE 1.43 mg/dL (0.55-1.02); EST CRCL DRUG DOSING (CG) 28.97 mL/min; POTASSIUM,K 3.6 mmol/L (3.5-5.1)
[2024-08-04] MEDS: methylPREDNISolone Sodium Succinate 40 MG/1 ML SDV IVPUSH SCH (10:51)
[2024-08-05] MEDS: Heparin Sodium 5,000 Units/ML Vial SUBCUT SCH (08:03)
[2024-08-05 11:26] LABS: HEMATOCRIT 43.7 % (37.0-47.0); HEMOGLOBIN 13.8 g/dL (11.5-16.5); MEAN CORPUSCULAR HEMOGLOBIN 31.4 pg (27.0-32.0); MEAN CORPUSCULAR HGB CONC 31.6 g/dL (31.0-35.0); MEAN PLATELET VOLUME 11.3 fL (6.0-10.0); RED BLOOD CELL COUNT 4.39 M/uL (3.80-5.80)
[2024-08-05 11:41] LABS: ANION GAP 12.1 mmol/L (5.0-15.0); BUN/CREATININE RATIO 22.7 (6-25); C-REACTIVE PROTEIN 49.6 mg/L (<5.0); CALCIUM 8.6 mg/dL (8.5-10.1); CARBON DIOXIDE,CO2 31.4 mmol/L (21.0-32.0); CREATININE 1.32 mg/dL (0.55-1.02); EST CRCL DRUG DOSING (CG) 31.38 mL/min; POTASSIUM,K 3.5 mmol/L (3.5-5.1)
[2024-08-05] MEDS: traZODone 100 MG Tab PO SCH (19:00)
[2024-08-06] MEDS: Albuterol/Ipratropium 3.0-0.5 MG/3 ML Neb Soln NEB SCH (09:12)
[2024-08-06] MEDS: traZODone 50 MG Tab PO SCH (21:50)
[2024-08-07] MEDS: Metoprolol Succinate 25 MG Tab.ER PO ONE (08:58)
[2024-08-07] MEDS: Hydrocortisone Acetate 1% Crm 30 GM Tube TOP PRN (18:26)
[2024-08-08 09:09] LABS: BASOPHILS ABSOLUTE AUTO 0.01 K/uL (0.02-0.10); BASOPHILS PERCENT AUTO 0.2 % (0.0-0.5); EOSINOPHILS ABSOLUTE AUTO 0.05 K/uL (0.04-0.40); EOSINOPHILS PERCENT AUTO 1.1 % (1.0-5.0); HEMATOCRIT 44.7 % (37.0-47.0); HEMOGLOBIN 14.1 g/dL (11.5-16.5); LYMPHOCYTES PERCENT AUTO 6.3 % (20.0-40.0); MEAN CORPUSCULAR HEMOGLOBIN 31.7 pg (27.0-32.0); MEAN CORPUSCULAR HGB CONC 31.5 g/dL (31.0-35.0); MEAN CORPUSCULAR VOLUME 100 fL (76-96); MONOCYTES ABSOLUTE AUTO 0.09 K/uL (0.20-0.80); MONOCYTES PERCENT AUTO 1.9 % (3.0-10.0); NEUTROPHILS ABSOLUTE AUTO 4.29 K/uL (2.00-7.50); NEUTROPHILS PERCENT AUTO 90.5 % (45.0-70.0); PLATELET COUNT,PLT 102 K/uL (150-500); RED BLOOD CELL COUNT 4.45 M/uL (3.80-5.80); RED CELL DISTRIBUTION WIDTH 14.8 % (11.0-16.0); WHITE BLOOD CELL COUNT,WBC 4.7 K/uL (4.0-11.0)
[2024-08-08 09:40] LABS: BUN/CREATININE RATIO 35.6 (6-25); C-REACTIVE PROTEIN 85.3 mg/L (<5.0); CARBON DIOXIDE,CO2 31.4 mmol/L (21.0-32.0); CREATININE 1.32 mg/dL (0.55-1.02); EST CRCL DRUG DOSING (CG) 31.38 mL/min
[2024-08-08 09:50] LABS: ANION GAP 12.1 mmol/L (5.0-15.0); POTASSIUM,K 3.5 mmol/L (3.5-5.1)
[2024-08-09 09:16] LABS: HEMATOCRIT 44.4 % (37.0-47.0); HEMOGLOBIN 14.1 g/dL (11.5-16.5); LYMPHOCYTES ABSOLUTE AUTO 0.42 K/uL (1.50-4.00); LYMPHOCYTES PERCENT AUTO 10.4 % (20.0-40.0); MEAN CORPUSCULAR HEMOGLOBIN 31.6 pg (27.0-32.0); MEAN CORPUSCULAR HGB CONC 31.8 g/dL (31.0-35.0); MEAN CORPUSCULAR VOLUME 100 fL (76-96); MEAN PLATELET VOLUME 12.3 fL (6.0-10.0); MONOCYTES ABSOLUTE AUTO 0.19 K/uL (0.20-0.80); MONOCYTES PERCENT AUTO 4.7 % (3.0-10.0); NEUTROPHILS ABSOLUTE AUTO 3.23 K/uL (2.00-7.50); NEUTROPHILS PERCENT AUTO 79.9 % (45.0-70.0); PLATELET COUNT,PLT 122 K/uL (150-500); RED BLOOD CELL COUNT 4.46 M/uL (3.80-5.80); RED CELL DISTRIBUTION WIDTH 14.8 % (11.0-16.0)
[2024-08-09 09:58] LABS: ANION GAP 14.2 mmol/L (5.0-15.0); BUN/CREATININE RATIO 34.5 (6-25); CALCIUM 9.2 mg/dL (8.5-10.1); CARBON DIOXIDE,CO2 31.4 mmol/L (21.0-32.0); CREATININE 1.39 mg/dL (0.55-1.02); EST CRCL DRUG DOSING (CG) 29.8 mL/min; POTASSIUM,K 3.6 mmol/L (3.5-5.1)
[2024-08-09 14:25] LABS: A/G RATIO 0.6 (0.8-2.0); ALBUMIN 2.4 g/dL (3.4-5.0); ANION GAP 8.6 mmol/L (5.0-15.0); BILIRUBIN TOTAL 0.8 mg/dL (0.0-1.0); BUN/CREATININE RATIO 31.6 (6-25); CALCIUM 8.9 mg/dL (8.5-10.1); CARBON DIOXIDE,CO2 38.3 mmol/L (21.0-32.0); CREATININE 1.55 mg/dL (0.55-1.02); EST CRCL DRUG DOSING (CG) 26.72 mL/min; POTASSIUM,K 3.9 mmol/L (3.5-5.1); PROTEIN TOTAL,TP 6.5 g/dL (6.4-8.2)
[2024-08-09] MEDS: Furosemide 20 MG Tab PO ONE (14:57)
[2024-08-09 15:06] LABS: APPEARANCE,URINE CLEAR (CLEAR); COLOR,URINE YELLOW; GLUCOSE,URINE 100 mg/dL (NEGATIVE); PH,URINE 5.5 (5.0-8.0); PROTEIN,URINE 30 mg/dL (NEGATIVE)
[2024-08-09 15:07] LABS: BILIRUBIN,URINE NEGATIVE (NEGATIVE); KETONES,URINE NEGATIVE (NEGATIVE); LEUKOCYTE ESTERASE,URINE NEGATIVE (NEGATIVE); NITRITE,URINE NEGATIVE (NEGATIVE); OCCULT BLOOD,URINE NEGATIVE (NEGATIVE); RBC,URINE 0-5 /HPF; SQUAMOUS EPITHELIAL CELLS,UR OCCASIONAL /HPF; UROBILINOGEN,URINE 0.2 E.U./dL (0.2-1.0); WBC,URINE 0-5 /HPF
[2024-08-09] MEDS: Melatonin 3 MG Tab PO SCH (21:03)
[2024-08-10 08:04] LABS: EOSINOPHILS ABSOLUTE AUTO 0.18 K/uL (0.04-0.40); EOSINOPHILS PERCENT AUTO 5.8 % (1.0-5.0); HEMATOCRIT 42.9 % (37.0-47.0); LYMPHOCYTES ABSOLUTE AUTO 0.44 K/uL (1.50-4.00); LYMPHOCYTES PERCENT AUTO 14.2 % (20.0-40.0); MEAN CORPUSCULAR HEMOGLOBIN 32.3 pg (27.0-32.0); MEAN CORPUSCULAR HGB CONC 32.6 g/dL (31.0-35.0); MEAN CORPUSCULAR VOLUME 99 fL (76-96); MEAN PLATELET VOLUME 11.2 fL (6.0-10.0); MONOCYTES ABSOLUTE AUTO 0.16 K/uL (0.20-0.80); MONOCYTES PERCENT AUTO 5.2 % (3.0-10.0); NEUTROPHILS ABSOLUTE AUTO 2.32 K/uL (2.00-7.50); NEUTROPHILS PERCENT AUTO 74.8 % (45.0-70.0); PLATELET COUNT,PLT 140 K/uL (150-500); RED BLOOD CELL COUNT 4.34 M/uL (3.80-5.80); WHITE BLOOD CELL COUNT,WBC 3.1 K/uL (4.0-11.0)
[2024-08-10 08:48] LABS: A/G RATIO 0.7 (0.8-2.0); ALBUMIN 2.5 g/dL (3.4-5.0); ANION GAP 9.3 mmol/L (5.0-15.0); BILIRUBIN TOTAL 0.9 mg/dL (0.0-1.0); BUN/CREATININE RATIO 33.1 (6-25); CARBON DIOXIDE,CO2 37.1 mmol/L (21.0-32.0); CREATININE 1.36 mg/dL (0.55-1.02); EST CRCL DRUG DOSING (CG) 30.46 mL/min; POTASSIUM,K 3.4 mmol/L (3.5-5.1); PROTEIN TOTAL,TP 6.2 g/dL (6.4-8.2)
[2024-08-11 07:08] VITALS: BP 109/54
[2024-08-11 09:14] LABS: BASOPHILS ABSOLUTE AUTO 0.01 K/uL (0.02-0.10); BASOPHILS PERCENT AUTO 0.3 % (0.0-0.5); EOSINOPHILS ABSOLUTE AUTO 0.18 K/uL (0.04-0.40); EOSINOPHILS PERCENT AUTO 4.9 % (1.0-5.0); HEMATOCRIT 45.3 % (37.0-47.0); MEAN CORPUSCULAR HEMOGLOBIN 31.3 pg (27.0-32.0); MEAN CORPUSCULAR HGB CONC 30.9 g/dL (31.0-35.0); MEAN CORPUSCULAR VOLUME 101 fL (76-96); MEAN PLATELET VOLUME 10.9 fL (6.0-10.0); MONOCYTES ABSOLUTE AUTO 0.25 K/uL (0.20-0.80); MONOCYTES PERCENT AUTO 6.9 % (3.0-10.0); NEUTROPHILS PERCENT AUTO 76.9 % (45.0-70.0); PLATELET COUNT,PLT 169 K/uL (150-500); RED BLOOD CELL COUNT 4.48 M/uL (3.80-5.80); WHITE BLOOD CELL COUNT,WBC 3.6 K/uL (4.0-11.0)
[2024-08-11 09:44] LABS: A/G RATIO 0.7 (0.8-2.0); ALBUMIN 2.5 g/dL (3.4-5.0); ANION GAP 7.9 mmol/L (5.0-15.0); BILIRUBIN TOTAL 1.2 mg/dL (0.0-1.0); BUN/CREATININE RATIO 34.8 (6-25); CALCIUM 8.9 mg/dL (8.5-10.1); CARBON DIOXIDE,CO2 36.9 mmol/L (21.0-32.0); CREATININE 1.15 mg/dL (0.55-1.02); EST CRCL DRUG DOSING (CG) 35.2 mL/min; POTASSIUM,K 3.8 mmol/L (3.5-5.1); PROTEIN TOTAL,TP 6.3 g/dL (6.4-8.2)
[2024-08-11 10:02] VITALS: PULSE 74
[2024-08-11] MEDS: Morphine 2 MG/ML SYRINGE IVPUSH ONE (11:25)
[2024-08-11] MEDS ORDERED: Atropine 1% Ophth Soln 5 ML Bottle SL PRN (12:54)
[2024-08-11] MEDS: LORazepam 2 MG/ML SDV IVPUSH PRN (13:15)
[2024-08-11] MEDS: Carboxymethylcellulose Sodium 0.5% Ophth Soln 15 ML Bottle EYEBOTH PRN (13:25)
[2024-08-11] MEDS: Atropine 1% Ophth Soln 5 ML Bottle SL SCH (13:48)
[2024-08-11] MEDS: Morphine 2 MG/ML SYRINGE IVPUSH PRN (20:45)
[2024-08-12] MEDS: LORazepam 2 MG/ML SDV IVPUSH ONE (08:01)
[2024-08-12] MEDS: LORazepam 2 MG/ML SDV IVPUSH PRN (11:43)
[2024-08-13] MEDS: Sodium Chloride 0.9% 10 ML Syringe FLUSH PRN (02:03)
[2024-08-13] MEDS: diazePAM 5 MG/ML MDV ONE (04:24)
[2024-08-13] MEDS: diazePAM 5 MG/ML MDV IVPUSH PRN (13:49)
[2024-08-14] MEDS ORDERED: diazePAM 5 MG/ML MDV IVPUSH SCH (09:18)
[2024-08-14] MEDS: diazePAM 5 MG/ML MDV IVPUSH SCH (11:31)
[2024-08-15] MEDS ORDERED: LORazepam 2 MG/ML SDV IM PRN (08:43)
[2024-08-15] MEDS ORDERED: Acetaminophen 650 MG Supp RECTAL PRN (08:46)
[2024-08-15] MEDS: Morphine Oral Concentrate 20 MG/ML 30 ML Bottle SL PRN (09:12)
== END 2024-08-16 05:32 | disposition expired | DRG 193 ==
LOC: LB.ED 11:45 → LB.MS 13:57 → UNDOADMIN 13:57 → LB.MS 08-01 11:41
PROVIDERS: ADMIT Surgery; ATTEND Surgery
DX: J18.9 Pneumonia, unspecified organism (principal); R09.02 Hypoxemia; Z99.81 Dependence on supplemental oxygen; J96.01 Acute respiratory failure with hypoxia; U07.1 COVID-19; E87.0 Hyperosmolality and hypernatremia; I48.91 Unspecified atrial fibrillation; Z66 Do not resuscitate; Z51.5 Encounter for palliative care; I50.9 Heart failure, unspecified; Z79.890 Hormone replacement therapy; E78.00 Pure hypercholesterolemia, unspecified; K59.09 Other constipation; K21.9 Gastro-esophageal reflux disease without esophagitis; H54.7 Unspecified visual loss; M19.90 Unspecified osteoarthritis, unspecified site; G43.909 Migraine, unspecified, not intractable, without status migrainosus; F41.9 Anxiety disorder, unspecified; F32.A Depression, unspecified; E03.9 Hypothyroidism, unspecified; M81.0 Age-related osteoporosis without current pathological fracture; Z96.649 Presence of unspecified artificial hip joint; Z96.659 Presence of unspecified artificial knee joint; R79.89 Other specified abnormal findings of blood chemistry; R00.1 Bradycardia, unspecified; D69.6 Thrombocytopenia, unspecified; D72.819 Decreased white blood cell count, unspecified; L50.8 Other urticaria; E87.8 Other disorders of electrolyte and fluid balance, not elsewhere classified; Z86.73 Personal history of transient ischemic attack (TIA), and cerebral infarction without residual deficits; Z88.0 Allergy status to penicillin; Z88.2 Allergy status to sulfonamides; Z88.1 Allergy status to other antibiotic agents; Z91.040 Latex allergy status; Z88.8 Allergy status to other drugs, medicaments and biological substances; Z79.52 Long term (current) use of systemic steroids; Z79.899 Other long term (current) drug therapy; Z79.84 Long term (current) use of oral hypoglycemic drugs; Z87.81 Personal history of (healed) traumatic fracture; Z90.89 Acquired absence of other organs; Z90.49 Acquired absence of other specified parts of digestive tract; Z90.710 Acquired absence of both cervix and uterus; Z90.10 Acquired absence of unspecified breast and nipple
CPT/HCPCS: 0241U; 36415; 70450; 71045; 80048; 80053; 81001; 83605; 83690; 83735; 83880; 84100; 84484; 85025; 85027; 86140; 87040; 87651-QW; 92526-GN; 92610-GN; 93005; 93010; 93246; 94640; 97110-GO; 97162-GP; 97165-GO; 97530-GP; 99222; 99231; 99232; 99233; 99238; 99285; A9270-GY; C1758; J0456; J0696; J1200; J1644; J1956; J2060; J2270; J2919; J3360; J3490; J7050; J7620; U0002